=== PATIENT | male | born 1965 | race Caucasian/White ===

== ENCOUNTER 2020-06-23 16:30 | Inpatient (IN) | payer SELFPAY ==
[2020-06-23] MEDS ORDERED: NA CHLORIDE 0.9% 1,000 ML ONE ×3 (17:17→20:21)
--- NOTE | 2020-06-23 17:25 | RAD REPORT ---
EXAM DESCRIPTION: RAD - Chest Single View - 06/23/2020 5:19 pm CLINICAL HISTORY: DYSPNEA Chest pain. COMPARISON: No comparisons FINDINGS: Portable technique limits examination quality. The lungs are grossly clear. The heart is normal in size. No displaced fractures. IMPRESSION: No acute intrathoracic process suspected.
[2020-06-23] MEDS ORDERED: LIDOCAINE 1% MPF 5 ML VIAL ONE (17:40)
[2020-06-23 17:59] LABS: Absolute Lymphocytes (CBC) 1.6 K/uL (0.7-4.9); Basophils % 0.9 % (0-1.3); Hematocrit 43.5 % (39.6-49.0); Lymphocytes % 12.2 % (15.3-44.8); MPV 9.5 fL (7.6-11.3); Protime INR 1.05; RBC Red Blood Cell Count 4.43 M/uL (4.33-5.43)
--- NOTE | 2020-06-23 18:21 | RAD REPORT ---
EXAM DESCRIPTION: US - Lower Extremity Arterial Bilat - 06/23/2020 6:09 pm CLINICAL HISTORY: no palpable pulses bilaterally;Numbness/tingling;Pain Leg pain, claudication COMPARISON: No comparisons TECHNIQUE: Bilateral lower extremity arterial Doppler examination was performed with zheng johnson FINDINGS: Triphasic waveforms are seen throughout both lower extremity arterial systems to the level of the dis anthony SFA bilaterally. The popliteal and distal vessels bilaterally are blunted and monophasic. No occlusion seen. IMPRESSION: Significant flow restricting stenosis is likely present bilaterally at the level of the distal SFAs.
[2020-06-23 18:22] LABS: ALT/SGPT 43 U/L (12-78); Albumin 3.4 g/dL (3.4-5.0); Alkaline Phosphatase 100 U/L (45-117); BUN Blood Urea Nitrogen 54 mg/dL (7-18); Bicarbonate 19 mmol/L (21-32); Bilirubin Direct < 0.1 mg/dL (0-0.2); Bilirubin Total 0.5 mg/dL (0.2-1.0); Glucose Level 126 mg/dL (74-106); NT PRO-BNP 199 pg/mL (<125); Sodium Level 139 mmol/L (136-145); Troponin (Emerg Dept Use Only) < 0.02 ng/mL (0.0-0.045)
[2020-06-23 18:29] LABS: AST/SGOT 121 U/L (15-37); Magnesium 2.8 mg/dL (1.8-2.4); Potassium 3.4 mmol/L (3.5-5.1)
--- NOTE | 2020-06-23 19:44 | P.HP ---
Certification for Inpatient Patient admitted to: Inpatient With expected LOS: >2 Midnights Patient will require the following post-hospital care: None Practitioner: I am a practitioner with admitting privileges, knowledge of patient current condition, hospital course, and medical plan of care. Services: Services provided to patient in accordance with Admission requirements found in Title 42 Section 412.3 of the Code of Federal Regulations <TrescarinPreet - Last Filed: 06/23/20 19:38> Patient History Date of Service: 06/23/20 Reason for admission: ARF/hypotension History of Present Illness: 55-year-old male with history of hypertension presents emergency department for lower extremity pain. Patient was evaluated with arterial ultrasound the lower extremities and found to have monophasic distal to the distal SFA. Patient initially with some mottling of the lower extremities which has improved with fluid resuscitation. Patient was also found to be in acute renal failure. Patient reports that he recently started back on his blood pressure medications including lisinopril, Norvasc, Coreg approximately 2 weeks ago. Patient reportedly been off his medications for significant period time and had just restarted. Patient is hypotensive at this time with a systolic blood pressure around 85-95. ED provider wishes to admit patient to the ICU for further evaluation and management. Case was discussed with nephrology while the patient was in the emergency department. There is some concern for renal artery stenosis. When I saw the patient in the emergency department he was awake, alert, oriented x4. Patient denies any pain at this time. Patient with nonpalpable pulses DP and PT but both extremities are warm to touch. Patient reports pain has improved as blood pressure has improved as well. Patient does have flow distal to the SFA. Will place cardiology consult in place. If this worsens or patient has acute changes he may require transfer for vascular. 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 - Social History Smoking Status: Current every day smoker Alcohol use: Yes CD- Drugs: No Caffeine use: Yes Place of Residence: Home <Preet Valles - Last Filed: 06/23/20 19:38> Date of Service: 06/24/20 <Angus Davis - Last Filed: 06/24/20 14:28> Review of Systems 10-point ROS is otherwise unremarkable Musculoskeletal: Leg Pain (Bilateral lower extremity pain) <Preet Valles - Last Filed: 06/23/20 19:38> Physical Examination - Physical Exam General: Alert, In no apparent distress, Oriented x3 HEENT: Atraumatic, Normocephalic, PERRLA, Mucous membr. moist/pink Neck: Supple Respiratory: Clear to auscultation bilaterally, Normal air movement Cardiovascular: No edema, Regular rate/rhythm, Normal S1 S2, Abnormal pulses (Nonpalpable pulses in DP and PT) Capillary refill: Other (Cap refill greater than 3 seconds bilateral lower extremities) Gastrointestinal: Normal bowel sounds, Hypoactive, No ascites, No tenderness, No masses, No rebound, No guarding Musculoskeletal: No swelling, No contractures, No erythema Integumentary: Cyanosis (Some mild cyanosis and the distal portion of bilateral feet including the toes. Both extremities are warm.) Neurological: Normal gait, Normal speech, Normal tone - Studies Laboratory Data (last 24 hrs) 06/23/20 17:41: PT 12.4, INR 1.05 06/23/20 17:41: WBC 13.2 H, Hgb 14.8, Hct 43.5, Plt Count 302 06/23/20 17:41: Sodium 139, Potassium 3.4 L, BUN 54 H, Creatinine 7.31 H*, Glucose 126 H, Magnesium 2.8 H, Total Bilirubin 0.5, AST 121 H, ALT 43, Alkaline Phosphatase 100 <Preet Valles - Last Filed: 06/23/20 19:38> - Studies Laboratory Data (last 24 hrs) 06/23/20 17:41: PT 12.4, INR 1.05 06/23/20 17:41: WBC 13.2 H, Hgb 14.8, Hct 43.5, Plt Count 302 06/23/20 17:41: Sodium 139, Potassium 3.4 L, BUN 54 H, Creatinine 7.31 H*, Glucose 126 H, Magnesium 2.8 H, Total Bilirubin 0.5, AST 121 H, ALT 43, Alkaline Phosphatase 100 <Angus Davis - Last Filed: 06/24/20 14:28> Assessment and Plan - Plan Assessment Acute renal failure with hypotension Monophasic arterial flow distal to the SFA bilaterally History of hypertension Tobacco abuse Plan Acute renal failure with hypotension: Continue aggressive fluid resuscitation, nephrology has been consulted on this patient. Continue with urine electrolytes, uric acid, CPK levels. Continue with renal ultrasound. Heparin 5000 units subcutaneous twice daily for DVT prophylaxis. Patient be admitted to the ICU due to hypotension. If patient hypotension persists after fluid resuscitation he may require central line and vasopressor therapy. Appreciate further input from nephrology. Monophasic arterial flow distal to the SFA bilaterally: Suspect patient has underlying vasculopathy and this was exacerbated by episode of hypotension secondary to acute renal failure. Will continue to monitor patient's lower extremities closely throughout the evening. Will continue with the warm blankets and fluid resuscitation. If this does not improve or significantly worsens acutely will likely need to eat initiate transfer for vascular service. At this time it has improved since admission. History of hypertension: Hold all blood pressure medications at this time. Will continue to monitor patient's blood pressure closely in the intensive care unit. Tobacco abuse: Counseled on need for tobacco cessation. Will provide patient with nicotine patch. Discharge Plan: Home Plan to discharge in: 72 Hours - Advance Directives Does patient have a Living Will: No Does patient have a Durable POA for Healthcare: No - Code Status/Comfort Care Code Status Assessed: Yes (Patient is full code) Critical Care: No Time Spent Managing Pts Care (In Minutes): 55 <Preet Valles - Last Filed: 06/23/20 19:38> - Problems (Diagnosis) (1) CLEM (acute kidney injury) Current Visit: Yes Status: Acute (2) Rhabdomyolysis Current Visit: Yes Status: Acute (3) Hypotension Current Visit: Yes Status: Acute (4) PAD (peripheral artery disease) Current Visit: Yes Status: Acute Physician Review Additional Text: Patient was seen and examined Agree with the findings Agree with the assessment and plan as documented by the TATO Date of service is 06/23/2020 <Angus Davis - Last Filed: 06/24/20 14:28>
[2020-06-23 20:41] LABS: Urine Blood 2+ (NEG); Urine Glucose NEGATIVE (NEG); Urine Specific Gravity >1.030 (1.005-1.030)
[2020-06-23 20:42] LABS: Urine Protein 2+ (NEG)
[2020-06-23] MEDS ORDERED: ONDANSETRON 4 MG/2 ML VIAL IV PRN (23:39)
[2020-06-23] MEDS ORDERED: ACETAMINOPHEN 500 MG TAB PO PRN (23:39)
[2020-06-23] MEDS ORDERED: HYDROCODONE/APAP 7.5/325 MG TAB PO PRN (23:39)
--- NOTE | 2020-06-23 23:53 | ER ---
Nurse's Notes [facility] Name: Alcides Werner Age: 55 yrs Sex: Male : 1965 Arrival Date: 06/23/2020 Time: 16:36 Bed 18 Private MD: Diagnosis: Acute kidney failure;Hypotension Presentation: 06/23 16:36 Chief complaint: EMS states: called out for rosalia. leg numbness and tingling that has em been going on for about 2 weeks, started after change of BP medications, BP on scene 80s systolic, pt denies dizziness, BGL 123. Coronavirus screen: Client denies travel out of the [place] in the last 14 days. Ebola Screen: Patient negative for fever greater than or equal to 101.5 degrees Fahrenheit, and additional compatible Ebola Virus Disease symptoms Patient denies exposure to infectious person. Patient denies travel to an Ebola-affected area in the 21 days before illness onset. No symptoms or risks identified at this time. Initial Sepsis Screen: Does the patient meet any 2 criteria? No. Patient's initial sepsis screen is negative. Does the patient have a suspected source of infection? No. Patient's initial sepsis screen is negative. Risk Assessment: Do you want to hurt yourself or someone else? Patient reports no desire to harm self or others. Onset of symptoms was June 09, 2020. 16:36 Method Of Arrival: EMS: [facility] em 16:36 Acuity: FELICIA 2 em Historical: - Allergies: 16:40 No Known Allergies; em - PMHx: 16:40 Hypertension; Diabetes - NIDDM; em - Immunization history:: Adult Immunizations not up to date. - Social history:: Smoking status: Patient reports the use of cigarette tobacco products, smokes one pack cigarettes per day. Screenin:36 Abuse screen: Denies threats or abuse. Nutritional screening: No deficits noted. em Tuberculosis screening: No symptoms or risk factors identified. Fall Risk None identified. Assessment: 16:36 General: Appears in no apparent distress. comfortable, Behavior is calm, cooperative, em appropriate for age, Denies fever. Pain: Complains of pain in right leg and left leg. Neuro: Level of Consciousness is awake, alert, obeys commands, Oriented to person, place, time, situation, Appropriate for age. Cardiovascular: Denies shortness of breath, Pulses are absent in right popliteal artery, right posterior tibial artery, right dorsalis pedis artery, left popliteal artery, left posterior tibial artery and left dorsalis pedis artery are palpable in right femoral artery and left femoral artery Chest pain is denied. Respiratory: Airway is patent Respiratory effort is even, unlabored, Respiratory pattern is regular, symmetrical. GI: Abdomen is round non-distended, Patient currently denies nausea, vomiting. Derm: Skin is intact, Skin is pink, warm \T\ dry. Musculoskeletal: Musculoskeletal: Capillary refill is > 3 seconds, is sluggish, in bilateral toes. Range of motion: intact in all extremities, Swelling absent. 18:00 Reassessment: Patient appears in no apparent distress at this time. Patient and/or em family updated on plan of care and expected duration. Pain level reassessed. Patient is alert, oriented x 3, equal unlabored respirations, skin warm/dry/pink. 19:15 Reassessment: Patient and/or family updated on plan of care and expected duration. Pain mt2 level reassessed. Patient is alert, oriented x 3, equal unlabored respirations, skin warm/dry/pink. Patient denies pain at this time. General: Appears in no apparent distress. Behavior is cooperative. 20:00 Reassessment: Patient and/or family updated on plan of care and expected duration. Pain mt2 level reassessed. Patient is alert, oriented x 3, equal unlabored respirations, skin warm/dry/pink. Patient denies pain at this time. Reassessment: PT CONT TO BE HYPOTENSIVE. NS 0.9% BOLUS 500 ML ADMINISTERED. TO BE START CONT. IVF AT 150ML POST BOLUS. General: Appears in no apparent distress. comfortable, Behavior is cooperative. 21:00 Reassessment: Patient and/or family updated on plan of care and expected duration. Pain mt2 level reassessed. Patient is alert, oriented x 3, equal unlabored respirations, skin warm/dry/pink. Patient denies pain at this time. Reassessment: [place] HOSPITALIST IF MAP LESS THAN 60 TO NOTIFIED THEM FOR POSSIBLE FEMORAL IV. General: Appears in no apparent distress. comfortable, Behavior is cooperative. 22:00 Reassessment: Patient and/or family updated on plan of care and expected duration. Pain mt2 level reassessed. Patient is alert, oriented x 3, equal unlabored respirations, skin warm/dry/pink. Patient denies pain at this time. General: Appears in no apparent distress. comfortable, Behavior is cooperative, appropriate for age. Vital Signs: 03:00 BP 94 / 60; Pulse 57; Resp 16; Pulse Ox 97% ; Pain 0/10; mt2 16:36 BP 77 / 42 LA; Pulse 63; Resp 18; Temp 98.5(O); Pulse Ox 99% on R/A; Weight 127.01 kg; em Height 5 ft. 7 in. (170.18 cm); Pain 0/10; 17:00 BP 87 / 56 RA; em 17:57 BP 97 / 70; Pulse 65; Resp 18 S; Pulse Ox 99% on R/A; em 19:30 BP 92 / 68; Pulse 61; Resp 16; Pulse Ox 97% on R/A; Pain 0/10; mt2 20:00 BP 87 / 39; Pulse 57; Resp 16; Pulse Ox 97% ; Pain 0/10; mt2 20:30 BP 91 / 63; Pulse 60; Resp 16; Pulse Ox 97% ; Pain 0/10; mt2 21:00 BP 89 / 62; Pulse 54; Resp 59; Temp 97.9(TE); Pulse Ox 99% ; Pain 0/10; mt2 21:30 BP 93 / 52; Pulse 59; Resp 16; Pulse Ox 99% ; Pain 0/10; mt2 22:00 BP 93 / 57; Pulse 57; Resp 16; Pulse Ox 99% ; Pain 0/10; mt2 22:30 BP 91 / 56; Pulse 58; Resp 16; Pulse Ox 99% ; Pain 0/10; mt2 16:36 Body Mass Index 43.86 (127.01 kg, 170.18 cm) em ED Course: 16:36 Patient arrived in ED. em 16:36 Patient has correct armband on for positive identification. Placed in gown. Bed in low em position. Call light in reach. patient monitor on. Pulse ox on. NIBP on. 16:39 Triage completed. em 16:40 Arm band placed on. em 16:42 Alhaji Vee RN is Primary Nurse. em 16:42 Santhosh Max PA is PHCP. jr8 16:42 Marcial Briceño MD is Attending Physician. jr8 17:00 Inserted saline lock: 20 gauge in left forearm, using aseptic technique. em 17:18 XRAY Chest (1 view) In Process Unspecified. EDMS 18:09 US LE Arterial Bilateral In Process Unspecified. EDMS 19:25 Rubin Davis MD is Hospitalizing Provider. jr8 23:05 No provider procedures requiring assistance completed. Patient admitted, IV remains in mt2 place. Administered Medications: 17:09 Drug: NS 0.9% 1000 ml Route: IV; Rate: 1000 ml; Site: left forearm; em 18:10 Follow up: IV Status: Completed infusion; IV Intake: 1000ml em 18:16 Drug: NS 0.9% 1000 ml Route: IV; Rate: 1 bolus; Site: left forearm; em 23:08 Follow up: IV Status: Completed infusion mt2 20:16 Drug: NS 0.9% 500 ml Route: IV; Rate: bolus; Site: left forearm; lp1 20:28 Follow up: Response: No adverse reaction; IV Status: Completed infusion mt2 21:07 Follow up: Response: No adverse reaction; IV Status: Completed infusion mt2 21:06 Drug: NS 0.9% 1000 ml Route: IV; Rate: 150 ml/hr; Site: left antecubital; mt2 23:06 Follow up: Response: No adverse reaction; IV Status: Infusion continued upon admission mt2 Intake: 18:10 IV: 1000ml; Total: 1000ml. em Outcome: 19:26 Decision to Hospitalize by Provider. jr8 23:05 Admitted to ICU accompanied by nurse, via stretcher. mt2 23:05 Condition: stable 23:05 Instructed on the need for admit. 23:52 Patient left the ED. mt2 Signatures: Dispatcher [employer] Alhaji Forte, RN RN em Che Chaves RN RN lp1 Santhosh Max PA PA jr8 Evelyn Rg RN RN mt2 Corrections: (The following items were deleted from the chart) 17:19 16:36 BP 77 / 42; Pulse 63bpm; Resp 18bpm; Pulse Ox 99% RA; Temp 98.5F Oral; 127.01 kg; em Height 5 ft. 7 in.; BMI: 43.8; Pain 0/10; em
--- NOTE | 2020-06-23 23:53 | EDPHYS ---
Physician Documentation [facility] Name: Alcides Werner Age: 55 yrs Sex: Male : 1965 Arrival Date: 06/23/2020 Time: 16:36 Bed 18 Private MD: ED Physician Marcial Briceño HPI: 06/23 19:26 This 55 yrs old Male presents to ER via EMS with complaints of Leg Pain. jr8 19:26 Onset: The symptoms/episode began/occurred gradually, 1 week(s) ago. Modifying factors: jr8 The symptoms are alleviated by nothing. the symptoms are aggravated by movement. Associated signs and symptoms: Pertinent positives: Dizziness . Severity of symptoms: At their worst the symptoms were moderate, in the emergency department the symptoms are unchanged. The patient has not experienced similar symptoms in the past. The patient has been recently seen by a physician:. Patient stated that he was recently started on Lisinopril and Norvasc for HTN about 2 weeks ago. Within past week or so started to have pain, tingling, and numbness to lower legs. Denies trauma. Now dizzy. Patient in triage with hypotension . Historical: - Allergies: 16:40 No Known Allergies; em - PMHx: 16:40 Hypertension; Diabetes - NIDDM; em - Immunization history:: Adult Immunizations not up to date. - Social history:: Smoking status: Patient reports the use of cigarette tobacco products, smokes one pack cigarettes per day. ROS: 19:26 Eyes: Negative for injury, pain, redness, and discharge, ENT: Negative for injury, jr8 pain, and discharge, Neck: Negative for injury, pain, and swelling, Cardiovascular: Negative for chest pain, palpitations, and edema, Respiratory: Negative for shortness of breath, cough, wheezing, and pleuritic chest pain, Abdomen/GI: Negative for abdominal pain, nausea, vomiting, diarrhea, and constipation, Back: Negative for injury and pain, Skin: Negative for injury, rash, and discoloration. 19:26 MS/extremity: Positive for pain, paresthesias, of the right foot, left foot, right leg and left leg. 19:26 Neuro: Positive for dizziness, numbness, tingling. Exam: 19:26 Eyes: Pupils equal round and reactive to light, extra-ocular motions intact. Lids and jr8 lashes normal. Conjunctiva and sclera are non-icteric and not injected. Cornea within normal limits. Periorbital areas with no swelling, redness, or edema. ENT: Nares patent. No nasal discharge, no septal abnormalities noted. Tympanic membranes are normal and external auditory canals are clear. Oropharynx with no redness, swelling, or masses, exudates, or evidence of obstruction, uvula midline. Mucous membranes moist. Neck: Trachea midline, no thyromegaly or masses palpated, and no cervical lymphadenopathy. Supple, full range of motion without nuchal rigidity, or vertebral point tenderness. No Meningismus. Cardiovascular: Regular rate and rhythm with a normal S1 and S2. No gallops, murmurs, or rubs. Normal PMI, no JVD. Respiratory: Lungs have equal breath sounds bilaterally, clear to auscultation and percussion. No rales, rhonchi or wheezes noted. No increased work of breathing, no retractions or nasal flaring. Abdomen/GI: Soft, non-tender, with normal bowel sounds. No distension or tympany. No guarding or rebound. No evidence of tenderness throughout. Back: No spinal tenderness. No costovertebral tenderness. Full range of motion. Skin: Warm, dry with normal turgor. Normal color with no rashes, no lesions, and no evidence of cellulitis. Neuro: Awake and alert, GCS 15, oriented to person, place, time, and situation. Cranial nerves II-XII grossly intact. Motor strength 5/5 in all extremities. Sensory grossly intact. Cerebellar exam normal. Normal gait. 19:26 Musculoskeletal/extremity: ROM: intact in all extremities, full active range of motion, full passive range of motion, Pulses: noted to be 2+ in the right femoral artery and left femoral artery, noted to be 1+ in the right radial artery and left radial artery, PT and DP impalpable . the right foot and left foot Sensation intact. Tingling of extremity. decreased sensation. Vital Signs: 03:00 BP 94 / 60; Pulse 57; Resp 16; Pulse Ox 97% ; Pain 0/10; mt2 16:36 BP 77 / 42 LA; Pulse 63; Resp 18; Temp 98.5(O); Pulse Ox 99% on R/A; Weight 127.01 kg; em Height 5 ft. 7 in. (170.18 cm); Pain 0/10; 17:00 BP 87 / 56 RA; em 17:57 BP 97 / 70; Pulse 65; Resp 18 S; Pulse Ox 99% on R/A; em 19:30 BP 92 / 68; Pulse 61; Resp 16; Pulse Ox 97% on R/A; Pain 0/10; mt2 20:00 BP 87 / 39; Pulse 57; Resp 16; Pulse Ox 97% ; Pain 0/10; mt2 20:30 BP 91 / 63; Pulse 60; Resp 16; Pulse Ox 97% ; Pain 0/10; mt2 21:00 BP 89 / 62; Pulse 54; Resp 59; Temp 97.9(TE); Pulse Ox 99% ; Pain 0/10; mt2 21:30 BP 93 / 52; Pulse 59; Resp 16; Pulse Ox 99% ; Pain 0/10; mt2 22:00 BP 93 / 57; Pulse 57; Resp 16; Pulse Ox 99% ; Pain 0/10; mt2 22:30 BP 91 / 56; Pulse 58; Resp 16; Pulse Ox 99% ; Pain 0/10; mt2 16:36 Body Mass Index 43.86 (127.01 kg, 170.18 cm) em MDM: 16:43 Patient medically screened. [facility] 19:21 Data reviewed: vital signs, nurses notes, lab test result(s), EKG, radiologic studies, jr8 doppler, plain films. Data interpreted: Pulse oximetry: on room air is 99 %. Interpretation: normal. Counseling: I had a detailed discussion with the patient and/or guardian regarding: the historical points, exam findings, and any diagnostic results supporting the discharge/admit diagnosis, lab results, radiology results, the need for further work-up and treatment in the hospital. ED course: Discussed case with Dr. Huffman. That there is concern for possibility of renal artery stenosis given the acute renal failure with new undiagnosed significant atherosclerosis and recent lisinopril use. Dr. Huffman agrees and will admit and get MRA without contrast of the renal arteries. Will continue to hydrate and control BP. Preet COLLINS was called and admitted patient . 06/23 16:52 Order name: Basic Metabolic Panel; Complete Time: 18:52 [facility] 06/23 16:52 Order name: CBC with Diff; Complete Time: 18:02 jr8 06/23 16:52 Order name: LFT's; Complete Time: 18:52 06/23 16:52 Order name: Magnesium; Complete Time: 18:52 06/23 16:52 Order name: NT PRO-BNP; Complete Time: 18:52 06/23 16:52 Order name: PT-INR; Complete Time: 18:02 06/23 16:52 Order name: Troponin (emerg Dept Use Only); Complete Time: 18:52 06/23 16:52 Order name: XRAY Chest (1 view); Complete Time: 18:00 06/23 16:52 Order name: US LE Arterial Bilateral; Complete Time: 18:52 06/23 18:04 Order name: CREATININE WHOLE BLOOD; Complete Time: 18:08 EDTX 06/23 20:37 Order name: Urine Dipstick--Ancillary (enter results) ar5 06/23 20:42 Order name: Urine Dipstick-Ancillary; Complete Time: 20:59 EDMS 06/23 16:52 Order name: EKG; Complete Time: 16:52 06/23 16:52 Order name: Cardiac monitoring; Complete Time: 17:06 06/23 16:52 Order name: EKG - Nurse/Tech; Complete Time: 17:06/23 16:52 Order name: IV Saline Lock; Complete Time: 17:06/23 16:52 Order name: Labs collected and sent; Complete Time: 17:06/23 16:52 Order name: O2 Per Protocol; Complete Time: 17:06/23 16:52 Order name: O2 Sat Monitoring; Complete Time: 17:06/23 19:28 Order name: CONS Physician Consult EDMS Administered Medications: 17:09 Drug: NS 0.9% 1000 ml Route: IV; Rate: 1000 ml; Site: left forearm; em 18:10 Follow up: IV Status: Completed infusion; IV Intake: 1000ml em 18:16 Drug: NS 0.9% 1000 ml Route: IV; Rate: 1 bolus; Site: left forearm; em 23:08 Follow up: IV Status: Completed infusion mt2 20:16 Drug: NS 0.9% 500 ml Route: IV; Rate: bolus; Site: left forearm; lp1 20:28 Follow up: Response: No adverse reaction; IV Status: Completed infusion mt2 21:07 Follow up: Response: No adverse reaction; IV Status: Completed infusion mt2 21:06 Drug: NS 0.9% 1000 ml Route: IV; Rate: 150 ml/hr; Site: left antecubital; mt2 23:06 Follow up: Response: No adverse reaction; IV Status: Infusion continued upon admission mt2 Disposition: 06/24 08:53 Co-signature as Attending Physician, Marcial Briceño MD I agree with the assessment and kdr plan of care. Disposition: 06/23/20 19:26 Hospitalization ordered by Rubin Davis for Inpatient Admission. Preliminary diagnosis are Acute kidney failure, Hypotension. - Bed requested for Intensive Care Unit. - Status is Inpatient Admission. mt2 - Condition is Fair. - Problem is new. - Symptoms have improved. Signatures: Dispatcher [employer] EDTX Marcial Briceño MD MD kdr Alhaji Vee, RN GAYLE em Che Chaves RN RN lp1 Santhosh Max PA PA jr8 Preet Valles, PAINT STRIPING MACHINE OPERATOR-C PAINT STRIPING MACHINE OPERATOR-Cla1 Evelyn Rg RN RN mt2 Corrections: (The following items were deleted from the chart) 06/23 17:54 16:53 Angio Aorta For Dissection+CT.RAD.BRZ ordered. [facility] EDTX 23:52 19:26 Hospitalization Ordered by Rubin Davis MD for Inpatient Admission. Preliminary mt2 diagnosis is Acute kidney failure; Hypotension. Bed requested for Intensive Care Unit. Status is Inpatient Admission. Condition is Fair. Problem is new. Symptoms have improved. jr8
[2020-06-24] MEDS: HEPARIN 5000 UNIT/ML 1 ML VIAL SQ SCH ×3 (00:01→21:02)
[2020-06-24] MEDS: NA CHLORIDE 0.9% 1,000 ML IV SCH ×2 (00:01→08:09)
[2020-06-24 01:42] VITALS: BMI 43.8
[2020-06-24 05:00] LABS: Urine Protein/Creatinine Ratio 0.23 ratio (<0.15)
[2020-06-24 05:42] LABS: Absolute Lymphocytes (CBC) 2.7 K/uL (0.7-4.9); Basophils % 0.7 % (0-1.3); Hematocrit 37.1 % (39.6-49.0); Lymphocytes % 29.8 % (15.3-44.8); MPV 9.5 fL (7.6-11.3)
[2020-06-24 06:07] LABS: Magnesium 2.3 mg/dL (1.8-2.4); Thyroid Stimulating Hormone 1.31 uIU/mL (0.360-3.740); Uric Acid 15.8 mg/dL (3.5-7.2)
[2020-06-24 06:09] LABS: Potassium 2.9 mmol/L (3.5-5.1)
[2020-06-24] MEDS ORDERED: POTASSIUM CL SA 10 MEQ TAB PO ONE ×2 (06:14→09:00)
[2020-06-24] MEDS ORDERED: POTASSIUM CL 40 MEQ in NA CHLORIDE 0.9% 500 ML IV SCH (08:00)
[2020-06-24] MEDS ORDERED: NA CHLORIDE 0.9% 1,000 ML ONE (08:03)
[2020-06-24] MEDS: NICOTINE 21 MG/PAT TD SCH (08:25)
[2020-06-24] MEDS ORDERED: NICOTINE 21 MG/PAT TD ONE (08:31)
[2020-06-24] MEDS ORDERED: HEPARIN 5000 UNIT/ML 1 ML VIAL ONE ×2 (08:32→21:11)
[2020-06-24] MEDS ORDERED: KCL 20 MEQ/100 mL IVPB 20 MEQ/100 ML BAG IV ONE (08:32)
--- NOTE | 2020-06-24 08:39 | EKG ---
Test Date: 2020-06-23 Test Time: 16:59:15 Billing Department Supervisor: STEVE MEASUREMENT RESULTS: Intervals: Rate: 63 SD: 138 QRSD: 90 QT: 458 QTc: 468 [place]: P: 75 SD: 138 QRS: 68 T: 36 INTERPRETIVE STATEMENTS: Sinus rhythm with premature atrial complexes Nonspecific ST and T wave abnormality Prolonged QT Abnormal ECG No previous ECG available for comparison Electronically Signed On 06-24-20 08:38:16 CDT by Soham Angeles
--- NOTE | 2020-06-24 09:04 | RAD REPORT ---
EXAM DESCRIPTION: US - Renal Ultrasound-Complete - 06/24/2020 7:04 am CLINICAL HISTORY: afr Flank pain, renal failure COMPARISON: No comparisons FINDINGS: Both kidneys are normal in size, shape and echotexture. The right kidney measures 11.9 x 6.1 x 4.7 cm. No hydronephrosis, focal mass or perinephric fluid.Two benign cortical cysts are present on the right, the largest measuring 29 mm. The left kidney measures 11.6 x 5.5 x 5.4 cm. No hydronephrosis, focal mass or perinephric fluid. The urinary bladder is incompletely distended without gross abnormality seen. IMPRESSION: Benign cortical renal cysts involving the right kidney, otherwise negative study.
--- NOTE | 2020-06-24 10:30 | P.PN ---
Subjective Date of Service: 06/24/20 Chief Complaint: ARF/hypotension Subjective: No new changes, Other (Denies any chest pain or shortness of breath No fever or chills) Review of Systems 10-point ROS is otherwise unremarkable Physical Examination - Vital Signs Temperature: 98.5 F Blood Pressure: 105/52 Pulse: 85 Respirations: 20 Pulse Ox (%): 99 - Physical Exam General: Alert, In no apparent distress, Obese HEENT: Atraumatic, Normocephalic Neck: Supple Respiratory: Diminished, Crackles/rales Cardiovascular: Regular rate/rhythm, Normal S1 S2 Capillary refill: <2 Seconds Gastrointestinal: Soft and benign, W/out hepatosplenomegaly Musculoskeletal: No clubbing, Swelling, Other (Decreased pulse volume of lower extremity ) Integumentary: No rashes Neurological: Normal speech, Normal strength at 5/5 x4 extr Lymphatics: No axilla or inguinal lymphadenopathy - Studies Laboratory Data (last 24 hrs) 06/23/20 17:41: PT 12.4, INR 1.05 06/23/20 17:41: WBC 13.2 H, Hgb 14.8, Hct 43.5, Plt Count 302 06/23/20 17:41: Sodium 139, Potassium 3.4 L, BUN 54 H, Creatinine 7.31 H*, Glucose 126 H, Magnesium 2.8 H, Total Bilirubin 0.5, AST 121 H, ALT 43, Alkaline Phosphatase 100 Assessment & Plan - Problems (Diagnosis) (1) CLEM (acute kidney injury) Current Visit: Yes Status: Acute (2) Rhabdomyolysis Current Visit: Yes Status: Acute (3) Hypotension Current Visit: Yes Status: Acute (4) PAD (peripheral artery disease) Current Visit: Yes Status: Acute Physician Review Additional Text: Acute renal failure with hypotension Monophasic arterial flow distal to the SFA bilaterally History of hypertension Tobacco abuse Plan Acute renal failure with hypotension: Continue aggressive fluid resuscitation Appreciate Nephrology consult Continue with urine electrolytes, uric acid, CPK levels. Renal ultrasound findings noted. Peripheral Arterial disease Doppler : Monophasic arterial flow distal to the SFA bilaterally: Will get a cardiology consult for possible peripheral arterial interventions As the patient has elevated renal parameters, possibly need to wait May get an MRA once GFR is less than 40 Hypotension The patient has a history of hypertension will continue IV fluid Will hold antihypertensives for now Monitor closely under telemetry History of hypertension: Hold all blood pressure medications at this time. Will continue to monitor patient's blood pressure closely Tobacco abuse: Counseled on need for tobacco cessation. Will provide patient with nicotine patch. GI/DVT prophylaxis Time Spent Managing Pts Care (In Minutes): 42
[2020-06-24] MEDS: NACHLORIDE 0.45% 1,000 ML with NA BICARB 8.4% 75 MEQ IV SCH ×4 (11:00→21:03)
--- NOTE | 2020-06-24 14:33 | CON ---
Date of Consultation: 06/24/2020 Additional Consulting Physician: Dr. Angus Davis. Reason For Consultation: Elevated BUN and creatinine, hypertension, rhabdomyolysis. History Of Present Illness: This is a pleasant 55-year-old gentleman with significant past medical h istory of hypertension, poorly treated diabetes, not on treatment, osteoarthritis. The patient was i n his regular state of health. According to him, he visited with his primary care 2 weeks ago and fo und to have elevated blood pressure. For that reason, the patient was started on treatment. The pat ient was started on BuSpar, lisinopril and carvedilol. According to him, after 5 days of the treatme nt, the patient started feeling weak, decrease in his urine output and gradually started weaker and w eaker. For that reason, he reported to the hospital. Upon arrival to the hospital, the patient was found to have severe elevation in BUN and creatinine and hypotension. Blood pressure was down to the 70. Doppler for the lower extremity showed decreased flow below the knee, monophasic with good perf usion on the upper part of the lower extremity. The patient was started on aggressive hydration. Th e patient also was severely hypokalemic. Upon arrival, creatinine was 7.3 with uric acid of 15. The patient was started on aggressive hydration. Blood pressure started being stabilized, did not re quire any pressor. According to the patient, the patient has been taking Aleve 1-2 tablets daily for almost a few weeks, stopped it 2 weeks ago. The patient denied any IV contrast. No other changes i n his medication. The patient denied any other joint problem. No photosensitivity. No mouth ulcer. Past Medical History: Include: 1.Diabetes, never been treated. 2.Hypertension, recently started treatment. 3.Osteoarthritis, on Aleve. Family History: Positive for hypertension. No history of kidney disease. Social History: Active alcohol, active smoker. Denies drugs abuse. Past Surgical History: Negative. Allergies: NO KNOWN DRUGS ALLERGIES. Review of Systems: Head and Neck: No red eye. No ear pain. GI: Decreased intake, nausea without any vomiting. : Decreased urine output. No foamy urine. No hematuria. Machine I Coremaker: Not applicable. Respiratory: No shortness of breath. Cardiovascular: No chest pain. No edema. Endocrine: No polydipsia. Skin: No rash. Neuro: Generalized fatigue. Musculoskeletal: Muscle cramps. Physical Examination: Vital Signs: When I saw the patient, blood pressure 105/52, pulse of 85, afebrile. The patient afte r hydration had urine output of 425. Chest: Clear to auscultation. Heart: S1, S2 regular. Abdomen: Soft, nontender. Morbidly obese. Could not appreciate any renal bruit or any organomegaly . Extremities: No edema. Pulse weak on the right dorsal. Neurologic: Alert and oriented. No focal. Vascular: The rest of vascular exam, no carotid bruit. Again, the patient is morbidly obese, could not appreciate any renal bruit. Decreased pulse on the right dorsal. Laboratory Data: Sodium 142, potassium 2.9, bicarb 21, BUN 51, creatinine 4.3, GFR of 14, uric acid of 15.8, calcium 7.3, magnesium 2.3. CK 4100. Triglycerides 328. PTH 258. Cortisol 21. WBC 9.8, H and H 13.2/37.1, platelets 258. Urinalysis; specific gravity above 1.030, PC ratio 0.2 even though the protein in the urine +2. Renal ultrasound; normal size kidney, 11.9/11.6. Doppler of the lower extremity; monophasic below the SF. Assessment And Plan: 1.Acute kidney injury, multifactorial, secondary to prerenal, secondary to low blood pressure, super imposed with MARGARET inhibitor. 2.Superimposed with rhabdomyolysis secondary to poor perfusion, complicated with low blood pressure. No hyperkalemia or acidosis. Responding to current IV hydration. 3.I am going to go ahead and continue IV hydration. Given the presence of rhabdomyolysis and acute kidney injury, we are going to goal to alkaline in urine. For that reason, I am going to change the IV fluid to bicarb drip with goal of urine pH above 6.5. Patient is going to be placed on sodium bic arb 75 mEq with half-normal at 125 per hour. 4.Rhabdomyolysis secondary to poor perfusion, ischemia on the lower extremity. We will continue agg ressive hydration and change the IV fluid as above. 5.Hypokalemia with presence of rhabdomyolysis. We going to be replacing it cautiously especially wi th the presence of renal failure. 6.I going to check for the magnesium. We will check. Hyperthyroidism has been ruled out with marilou l TSH. 7.Secondary hyperparathyroidism, marginal low calcium, but corrected calcium is 8.2 with the presenc e of rhabdomyolysis. I am going to hold on any supplement. 8.Elevation in the uric acid secondary to dehydration. I am not going to start on any allopurinol. 9.Hypertension with the presence of low blood pressure. Hold all blood pressure medication, especia lly MARGARET inhibitor. 10.Diabetes. We will follow up with the primary. 11.Proteinuria with disproportion of the quantification from the goal. I am going to go ahead and s end for serum protein electrophoresis and we will follow up the patient. Thank you, Dr. Davis for allowing us to participate in the care of your patient. CHRISTINA Voice ID: [id number] Report ID: [id number]
[2020-06-25] MEDS: NACHLORIDE 0.45% 1,000 ML with NA BICARB 8.4% 75 MEQ IV SCH ×2 (05:30)
[2020-06-25 07:38] LABS: Absolute Lymphocytes (CBC) 2.1 K/uL (0.7-4.9); Basophils % 0.8 % (0-1.3); Hematocrit 36.2 % (39.6-49.0); Lymphocytes % 27.8 % (15.3-44.8); MPV 9.4 fL (7.6-11.3); RBC Red Blood Cell Count 3.69 M/uL (4.33-5.43)
[2020-06-25 08:19] LABS: Rheumatoid Factor NEG (NEG)
[2020-06-25 08:25] LABS: Albumin 2.8 g/dL (3.4-5.0); Magnesium 1.6 mg/dL (1.8-2.4); Phosphorus 1.9 mg/dL (2.5-4.9); Potassium 3.1 mmol/L (3.5-5.1); Thyroid Stimulating Hormone 2.07 uIU/mL (0.360-3.740); Uric Acid 13.1 mg/dL (3.5-7.2)
[2020-06-25] MEDS ORDERED: NICOTINE 21 MG/PAT TD ONE (08:33)
[2020-06-25] MEDS ORDERED: HEPARIN 5000 UNIT/ML 1 ML VIAL ONE ×2 (08:33→19:45)
[2020-06-25] MEDS: NICOTINE 21 MG/PAT TD SCH (08:55)
[2020-06-25] MEDS: HEPARIN 5000 UNIT/ML 1 ML VIAL SQ SCH ×2 (08:56→20:46)
[2020-06-25] MEDS ORDERED: POTASSIUM CL SA 10 MEQ TAB PO ONE ×2 (11:18→12:03)
[2020-06-25] MEDS: NS KCL 20MEQ 20 MEQ/1,000 ML BAG IV SCH ×2 (12:03→19:37)
[2020-06-25] MEDS ORDERED: NS KCL 20MEQ 1,000 ML IV ONE ×2 (12:13→19:45)
--- NOTE | 2020-06-25 12:39 | P.PN ---
Subjective Date of Service: 06/25/20 Chief Complaint: ARF/hypotension Subjective Pt was admitted with wekaness, found to be hypotensive , Autumn cr peak 7.3 today no new complaints Cr down to 1.3 K 3.1 , will change fluid to NS with KCL monitor CPK Physical exam general: AAOX3, NAD Neck; Supple, No elevated JVD hear: RRR, normal S1,2 no murmur or rub Chest: CTAB, no rlaes or wheezes Abdomen: Soft , Nt Extremities No edema or ulcer AUTUMN due to dehydration + MARGARET improving , cr near 1 renal dose meds F/u SPEP cont IVF Hypokalmeia will replace will change fluid to NS + KCL rhabdomyolyisis possibly due to hypokalemia cot IVF HTN bP borderline now cont to hold BP meds Physical Examination - Vital Signs Temperature: 98.7 F Blood Pressure: 110/52 Pulse: 80 Respirations: 20 Pulse Ox (%): 99 Assessment And Plan Physician Review Additional Text: Patient was seen and examined Agree with the findings Agree with the assessment and plan as documented by the TATO Date of service is 06/23/2020
--- NOTE | 2020-06-25 14:39 | P.PN ---
Subjective Date of Service: 06/25/20 Chief Complaint: ARF/hypotension Subjective: No new changes, Other (Feeling better Denies any chest pain or shortness of breath) Review of Systems 10-point ROS is otherwise unremarkable Physical Examination - Vital Signs Temperature: 98.7 F Blood Pressure: 110/52 Pulse: 80 Respirations: 20 Pulse Ox (%): 99 - Physical Exam General: Alert, In no apparent distress HEENT: Atraumatic, Normocephalic Neck: Supple, 2+ carotid pulse no bruit Respiratory: Clear to auscultation bilaterally, Normal air movement Cardiovascular: Normal pulses, Regular rate/rhythm Capillary refill: <2 Seconds Gastrointestinal: Hypoactive, Soft and benign Musculoskeletal: No clubbing, No swelling Integumentary: No rashes, No breakdown Neurological: Normal speech, Normal strength at 5/5 x4 extr Lymphatics: No axilla or inguinal lymphadenopathy Assessment & Plan - Problems (Diagnosis) (1) CLEM (acute kidney injury) Current Visit: Yes Status: Acute (2) Rhabdomyolysis Current Visit: Yes Status: Acute (3) Hypotension Current Visit: Yes Status: Acute (4) PAD (peripheral artery disease) Current Visit: Yes Status: Acute Physician Review Additional Text: Acute renal failure with hypotension Monophasic arterial flow distal to the SFA bilaterally History of hypertension Tobacco abuse Plan Acute renal failure with hypotension: Continue aggressive fluid resuscitation Appreciate Nephrology consult Continue with urine electrolytes, uric acid, CPK levels. Renal ultrasound findings noted. Renal parameters improving Peripheral Arterial disease Doppler : Monophasic arterial flow distal to the SFA bilaterally: Will get a cardiology consult for possible peripheral arterial interventions As the patient has elevated renal parameters, possibly need to wait MRA once GFR is less than 40 Hypotension The patient has a history of hypertension will continue IV fluid Will hold antihypertensives for now Monitor closely under telemetry History of hypertension: Hold all blood pressure medications at this time. Will continue to monitor patient's blood pressure closely Tobacco abuse: Counseled on need for tobacco cessation. Will provide patient with nicotine patch. Time Spent Managing Pts Care (In Minutes): 43
[2020-06-25] MEDS ORDERED: MAGNESIUM SULFATE 1 gm IVPB 1 GM/100 ML BAG IV ONE ×2 (20:25→20:56)
[2020-06-25] MEDS ORDERED: POTASSIUM 25 MEQ EFFERV TAB PO ONE (20:28)
[2020-06-25] MEDS ORDERED: POTASSIUM 25 MEQ EFFERV TAB ONE (20:55)
[2020-06-26] MEDS: NS KCL 20MEQ 20 MEQ/1,000 ML BAG IV SCH ×2 (04:54→18:01)
[2020-06-26] MEDS ORDERED: NS KCL 20MEQ 1,000 ML IV ONE ×2 (05:02→18:10)
[2020-06-26 07:22] LABS: Absolute Lymphocytes (CBC) 1.5 K/uL (0.7-4.9); Basophils % 0.8 % (0-1.3); Lymphocytes % 22.6 % (15.3-44.8); MPV 9.2 fL (7.6-11.3)
[2020-06-26 07:48] LABS: Albumin 2.6 g/dL (3.4-5.0); Phosphorus 1.3 mg/dL (2.5-4.9); Potassium 3.6 mmol/L (3.5-5.1)
[2020-06-26 07:50] LABS: Magnesium 1.2 mg/dL (1.8-2.4)
[2020-06-26] MEDS: NICOTINE 21 MG/PAT TD SCH (08:59)
[2020-06-26] MEDS: HEPARIN 5000 UNIT/ML 1 ML VIAL SQ SCH ×2 (08:59→21:00)
[2020-06-26] MEDS ORDERED: HEPARIN 5000 UNIT/ML 1 ML VIAL ONE ×2 (09:04→20:35)
[2020-06-26] MEDS ORDERED: NICOTINE 21 MG/PAT TD ONE (09:04)
[2020-06-26] MEDS ORDERED: PANTOPRAZOLE 40 MG INJ ONE (09:33)
[2020-06-26] MEDS ORDERED: POTASSIUM CL SA 10 MEQ TAB PO ONE (09:39)
[2020-06-26] MEDS ORDERED: POTASSIUM PHOS 30 MM in NA CHLORIDE 0.9% 500 ML IV ONE (10:00)
[2020-06-26] MEDS ORDERED: Magnesium Sulfate 2gm IVPB 2 G/50 ML BAG IV ONE ×4 (10:00→20:53)
--- NOTE | 2020-06-26 10:34 | P.PN ---
Subjective Date of Service: 06/26/20 Chief Complaint: ARF/hypotension Subjective: No new changes Review of Systems 10-point ROS is otherwise unremarkable Physical Examination - Vital Signs Temperature: 98.6 F Blood Pressure: 118/63 Pulse: 65 Respirations: 20 Pulse Ox (%): 100 - Physical Exam General: Alert, In no apparent distress, Obese HEENT: Atraumatic, Normocephalic Neck: Supple Respiratory: Clear to auscultation bilaterally, Normal air movement Cardiovascular: Regular rate/rhythm, Normal S1 S2 Gastrointestinal: Soft and benign, W/out hepatosplenomegaly Musculoskeletal: No clubbing, No swelling Integumentary: No rashes Neurological: Normal speech, Normal strength at 5/5 x4 extr Lymphatics: No axilla or inguinal lymphadenopathy Assessment & Plan - Problems (Diagnosis) (1) CLEM (acute kidney injury) Current Visit: Yes Status: Acute (2) Rhabdomyolysis Current Visit: Yes Status: Acute (3) Hypotension Current Visit: Yes Status: Acute (4) PAD (peripheral artery disease) Current Visit: Yes Status: Acute Physician Review Additional Text: Acute renal failure with hypotension Monophasic arterial flow distal to the SFA bilaterally History of hypertension Tobacco abuse Plan Acute renal failure with hypotension: Continue aggressive fluid resuscitation Appreciate Nephrology consult Continue with urine electrolytes, uric acid, CPK levels. Renal ultrasound findings noted. Renal parameters normalised Peripheral Arterial disease Doppler : Monophasic arterial flow distal to the SFA bilaterally: Will get a cardiology consult for possible peripheral arterial interventions As the patient has elevated renal parameters, possibly need to wait MRA today Hypotension resolved The patient has a history of hypertension will continue IV fluid Will hold antihypertensives for now Monitor closely under telemetry History of hypertension: Hold all blood pressure medications at this time. Will continue to monitor patient's blood pressure closely Tobacco abuse: Counseled on need for tobacco cessation. Will provide patient with nicotine patch. Time Spent Managing Pts Care (In Minutes): 45
[2020-06-26] MEDS ORDERED: MAGNESIUM SULFATE 1 gm IVPB 1 GM/100 ML BAG IV ONE (12:18)
[2020-06-26] MEDS ORDERED: POTASSIUM PHOS IN 0.9 % NACL 15 MMOL/250 ML BAG IV ONE (12:18)
--- NOTE | 2020-06-26 15:07 | P.PN ---
Subjective Date of Service: 06/26/20 Chief Complaint: ARF/hypotension Subjective Pt was admitted with wekaness, found to be hypotensive , Autumn cr peak 7.3 today have mild le numbness k wnl , low Mg and Phos electolytes replaced will start on PO Mg oxide if repeated phos and Mg > 2.0, then pt can be discharged today from nephrology point of view Physical exam general: AAOX3, NAD Neck; Supple, No elevated JVD hear: RRR, normal S1,2 no murmur or rub Chest: CTAB, no rlaes or wheezes Abdomen: Soft , Nt Extremities No edema or ulcer AUTUMN due to dehydration + MARGARET resolved renal dose meds F/u SPEP cont IVF Hypokalmeia corrected rhabdomyolyisis possibly due to hypokalemia cot IVF hypophophatemia and hypomagnesemia likely due to poor oral intake will replace HTN bP borderline now cont to hold BP meds Physical Examination - Vital Signs Temperature: 98.6 F Blood Pressure: 118/63 Pulse: 65 Respirations: 20 Pulse Ox (%): 100
[2020-06-26] MEDS ORDERED: D5.45NS W/KCL 20MEQ 0 ML IV ONE (18:05)
[2020-06-26 19:07] LABS: Magnesium 1.3 mg/dL (1.8-2.4); Phosphorus 2.2 mg/dL (2.5-4.9)
[2020-06-26] MEDS ORDERED: MAGNESIUM OXIDE 400 MG TAB ONE (20:36)
[2020-06-26] MEDS: MAGNESIUM OXIDE 400 MG TAB PO SCH (20:44)
--- NOTE | 2020-06-26 22:31 | CON ---
Date of Consultation: 06/24/2020 Reason For Consultation: Acute renal failure, elevated CPK. History Of Present Illness: Mr. Curiel is a 55-year-old male with a history of hypertension only . He takes typically Coreg, Zestril, and BuSpar at home. He came in with acute renal failure. Crecarin tinine was 7.31, had a potassium of 2.9. Last creatinine is 4.34. His CPK was 4162. No cardiac sym ptoms reported. Denied PND, orthopnea, pedal edema, palpitations, or syncope. Denied chest pain. H ad some nausea, but no vomiting or diaphoresis. Past Medical History: As stated above. Allergies: NONE. Review of Systems: Negative. Social History: Unremarkable. Family History: Noncontributory. Medications: As listed earlier. Physical Examination: Vital Signs: Stable. He is afebrile, in sinus rhythm. HEENT: Negative. Neck: Supple. No bruit. Chest: Clear. Cardiac: Revealed a regular rhythm and rate with an S4 gallops. Abdomen: Benign. Extremities: Revealed no clubbing, cyanosis, or edema. Diagnostic Data: As stated earlier. Impression And Plan: 1.Acute renal failure. 2.Hypertension. 3.Hypokalemia. 4.Elevated CPK secondary to renal failure. Echocardiogram may be reasonable on Mr. Curiel. No other cardiac workup is indicated at this poi nt. We will see what the echocardiogram shows. He definitely needs to be hydrated and Nephrology co nsultation is pending. We need to hold his Zestril, continue his Coreg. I will be available for kristal davis if the need arises. NB/CONCHITAL Voice ID: [id number] Report ID: [id number]
[2020-06-27] MEDS: NS KCL 20MEQ 20 MEQ/1,000 ML BAG IV SCH ×3 (00:54→12:00)
[2020-06-27] MEDS ORDERED: NS KCL 20MEQ 1,000 ML IV ONE ×2 (01:03→08:12)
[2020-06-27 06:36] LABS: Albumin 2.5 g/dL (3.4-5.0); BUN Blood Urea Nitrogen 8 mg/dL (7-18); Bicarbonate 27 mmol/L (21-32); Glucose Level 93 mg/dL (74-106); Magnesium 1.6 mg/dL (1.8-2.4); Phosphorus 1.8 mg/dL (2.5-4.9); Potassium 3.6 mmol/L (3.5-5.1); Sodium Level 143 mmol/L (136-145)
[2020-06-27] MEDS ORDERED: POTASSIUM CL SA 10 MEQ TAB PO ONE ×2 (08:12→09:00)
[2020-06-27] MEDS ORDERED: MAGNESIUM OXIDE 400 MG TAB ONE ×2 (08:12→21:37)
[2020-06-27] MEDS ORDERED: HEPARIN 5000 UNIT/ML 1 ML VIAL ONE ×2 (08:12→21:37)
[2020-06-27] MEDS ORDERED: MAGNESIUM SULFATE 1 gm IVPB 1 GM/100 ML BAG IV ONE ×2 (08:12→09:00)
[2020-06-27] MEDS: MAGNESIUM OXIDE 400 MG TAB PO SCH ×2 (09:19→21:42)
[2020-06-27] MEDS: NICOTINE 21 MG/PAT TD SCH (09:19)
[2020-06-27] MEDS: HEPARIN 5000 UNIT/ML 1 ML VIAL SQ SCH ×2 (09:20→21:42)
--- NOTE | 2020-06-27 09:41 | P.PN ---
Subjective Date of Service: 06/27/20 Chief Complaint: ARF/hypotension Subjective: No new changes, Other (Feeling better denies any chest pain or shortness of breath Swelling improved) Review of Systems 10-point ROS is otherwise unremarkable Physical Examination - Vital Signs Temperature: 97.6 F Blood Pressure: 138/86 Pulse: 71 Respirations: 16 Pulse Ox (%): 96 - Physical Exam General: Alert, In no apparent distress, Obese HEENT: Atraumatic, Normocephalic Neck: Supple Respiratory: Clear to auscultation bilaterally Cardiovascular: Regular rate/rhythm, Normal S1 S2 Capillary refill: <2 Seconds Gastrointestinal: Soft and benign, W/out hepatosplenomegaly Musculoskeletal: No clubbing, No swelling Integumentary: No rashes Neurological: Normal speech, Normal strength at 5/5 x4 extr Lymphatics: No axilla or inguinal lymphadenopathy Assessment & Plan - Problems (Diagnosis) (1) CLEM (acute kidney injury) Current Visit: Yes Status: Acute (2) Rhabdomyolysis Current Visit: Yes Status: Acute (3) Hypotension Current Visit: Yes Status: Acute (4) PAD (peripheral artery disease) Current Visit: Yes Status: Acute Physician Review Additional Text: Acute renal failure with hypotension Monophasic arterial flow distal to the SFA bilaterally History of hypertension Tobacco abuse Plan Acute renal failure with hypotension: Responded well to aggressive fluid resuscitation Appreciate Nephrology consult Renal ultrasound findings noted. Renal parameters normalised Peripheral Arterial disease Doppler : Monophasic arterial flow distal to the SFA bilaterally: Appreciate cardiology consult for possible peripheral arterial interventions As the patient had elevated renal parameters, possibly need to wait Will get an MRA today Hypotension resolved The patient has a history of hypertension will continue IV fluid Will hold antihypertensives for now Monitor closely under telemetry History of hypertension: Hold all blood pressure medications at this time. Will continue to monitor patient's blood pressure closely Tobacco abuse: Counseled on need for tobacco cessation. Will provide patient with nicotine patch. Disposition : Awaiting MRA Discuss with Dr. Hodges May benefit from angiogram for peripheral arterial disease Time Spent Managing Pts Care (In Minutes): 42
--- NOTE | 2020-06-27 12:23 | P.PN ---
Subjective Date of Service: 06/30/20 Chief Complaint: ARF/hypotension Subjective Pt was admitted with wekaness, found to be hypotensive , Autumn cr peak 7.3 today have mild le numbness plan for LE MRA tomorrow TSH Wnl , will check b12 level Physical exam general: AAOX3, NAD Neck; Supple, No elevated JVD hear: RRR, normal S1,2 no murmur or rub Chest: CTAB, no rlaes or wheezes Abdomen: Soft , Nt Extremities No edema or ulcer AUTUMN due to dehydration + MARGARET resolved renal dose meds F/u SPEP cont IVF Hypokalmeia corrected will start daily KCL supplementation rhabdomyolyisis possibly due to hypokalemia cot IVF hypophophatemia and hypomagnesemia likely due to poor oral intake will replace HTN bP borderline now cont to hold BP meds Physical Examination - Vital Signs Temperature: 97.6 F Blood Pressure: 138/86 Pulse: 71 Respirations: 16 Pulse Ox (%): 96
[2020-06-27] MEDS ORDERED: POTASSIUM PHOS 30 MEQ in NA CHLORIDE 0.9% 250 ML IV ONE (13:00)
[2020-06-28 07:02] LABS: Albumin 2.7 g/dL (3.4-5.0); BUN Blood Urea Nitrogen 8 mg/dL (7-18); Bicarbonate 28 mmol/L (21-32); CKMB Creatine Kinase MB 1.8 ng/mL (0.3-3.6); Creatine Phosphokinase 398 U/L (39-308); Glucose Level 91 mg/dL (74-106); Potassium 4.1 mmol/L (3.5-5.1); Sodium Level 141 mmol/L (136-145)
[2020-06-28 07:07] LABS: Magnesium 1.3 mg/dL (1.8-2.4)
[2020-06-28] MEDS ORDERED: MAGNESIUM SULFATE 1 gm IVPB 1 GM/100 ML BAG IV ONE ×2 (07:23→18:00)
[2020-06-28] MEDS: HEPARIN 5000 UNIT/ML 1 ML VIAL SQ SCH ×2 (09:00→21:10)
[2020-06-28] MEDS: NICOTINE 21 MG/PAT TD SCH (14:48)
[2020-06-28] MEDS: POTASSIUM 25 MEQ EFFERV TAB PO SCH (14:49)
[2020-06-28] MEDS: MAGNESIUM OXIDE 400 MG TAB PO SCH ×2 (14:50→21:10)
--- NOTE | 2020-06-28 15:58 | RAD REPORT ---
EXAM DESCRIPTION: MRI - MRA Runoff Bilateral - 06/28/2020 2:40 pm CLINICAL HISTORY: Peripheral vascular disease. Leg pain and numbness TECHNIQUE: Magnetic resonance angiogram abdominal aorta, iliac and leg arteries performed. 40 cc Mul tiHance administered intravenously 3D MIPS reconstruction performed FINDINGS: Mild plaque within the abdominal aorta. The celiac, SMA and VIVIEN are patent Renal arteries normal caliber Signal voids are present within the distal superficial femoral and popliteal arteries bilaterally. The peroneal arteries bilaterally have diminished blood flow. The right and left posterior and anterior tibial arteries are patent. Diminished blood flow to the fe et IMPRESSION: Signal void within the distal superficial femoral and popliteal arteries. Presumably the se are occluded. If the patient has had stents placed in these areas the artifact would result in a s imilar appearance. This should be correlated clinically
--- NOTE | 2020-06-28 18:54 | P.PN ---
Subjective Date of Service: 06/28/20 Chief Complaint: ARF/hypotension overall feels better, continues with b/l feet tingling/pain. denies SOB, chest pain, abdominal pain Physical Examination - Vital Signs Temperature: 97.6 F Blood Pressure: 163/74 Pulse: 67 Respirations: 24 Pulse Ox (%): 98 - Physical Exam General: In no apparent distress HEENT: EOMI, Sclerae nonicteric Neck: Supple Respiratory: Clear to auscultation bilaterally, Normal air movement Cardiovascular: Regular rate/rhythm, Normal S1 S2 Gastrointestinal: Normal bowel sounds, Soft and benign, Non-distended Neurological: Normal speech, Normal affect, Abnormal sensation (decreased on b/l feet) Assessment & Plan Physician Review Additional Text: CLEM Rhabdomyolysis Hypotension, resolved PAD Acute renal failure with hypotension Monophasic arterial flow distal to the SFA bilaterally History of hypertension Tobacco abuse Plan Acute renal failure with hypotension: Responded well to aggressive fluid resuscitation Appreciate Nephrology consult Renal parameters normalized Peripheral Arterial disease Doppler : Monophasic arterial flow distal to the SFA bilaterally: Appreciate cardiology consult for possible peripheral arterial interventions to get MRA today Hypotension resolved, holding home antihypertensives The patient has a history of hypertension Monitor closely under telemetry History of hypertension: Hold all blood pressure medications at this time. Will continue to monitor patient's blood pressure closely Tobacco abuse: Counseled on need for tobacco cessation. Will provide patient with nicotine patch. Disposition : Awaiting MRA, Discuss with Dr. Hodges May benefit from angiogram for peripheral arterial disease anticipate dc home tomorrow Time Spent Managing Pts Care (In Minutes): 40
--- NOTE | 2020-06-29 02:38 | PN ---
Date of Progress Note: 06/28/2020 Chief Complaint: Abnormal renal function test, elevated BUN and creatinine, hypertension, and rhabdo myolysis. Subjective: The patient is a 55-year-old man with past medical history significant for hypertension, poorly diet-controlled diabetes, not on treatment with medication. The patient is noncompliant with diet. The patient is admitted to the hospital because of generalized weakness. He was found to hav e severe hypokalemia and the patient was found to have volume depletion. [facility], he was found to have severe elevation of BUN, creatinine, and hypotension. According to the patie nt, he was taking Aleve and this was likely culprit of acute kidney injury. The patient denied contr ast. Review of Systems: Denies fever or chills. Physical Examination: Lungs: Diminished breath sounds at bases. Heart: S1 and S2. Abdomen: Soft and benign. Extremities: Slight edema present. Impression And Plan: 1.Acute kidney injury, in recovery phase. The patient has history of rhabdomyolysis. CK level was 3441. Continue to monitor electrolytes. The patient has severe hypokalemia. Potassium level has im proved. There is no evidence of metabolic acidosis. 2.Hypomagnesemia, replaced today, and level was reevaluated. The patient will continue magnesium dillon pplement. EB/MODL Voice ID: [id number] Report ID: [id number]
[2020-06-29 06:57] LABS: Albumin 2.8 g/dL (3.4-5.0); BUN Blood Urea Nitrogen 7 mg/dL (7-18); Bicarbonate 27 mmol/L (21-32); Glucose Level 81 mg/dL (74-106); Magnesium 1.6 mg/dL (1.8-2.4); Phosphorus 2.1 mg/dL (2.5-4.9); Sodium Level 140 mmol/L (136-145)
[2020-06-29] MEDS: NICOTINE 21 MG/PAT TD SCH (08:48)
[2020-06-29] MEDS: POTASSIUM 25 MEQ EFFERV TAB PO SCH (08:49)
[2020-06-29] MEDS: MAGNESIUM OXIDE 400 MG TAB PO SCH (08:49)
[2020-06-29] MEDS: HEPARIN 5000 UNIT/ML 1 ML VIAL SQ SCH (08:49)
[2020-06-29] MEDS ORDERED: MAGNESIUM SULFATE 1 gm IVPB 1 GM/100 ML BAG IV ONE (09:00)
[2020-06-29 09:12] LABS: HIV AG/AB 4TH GEN Non-reactive (Non-reactive)
[2020-06-29 09:26] VITALS: O2SAT 95
--- NOTE | 2020-06-29 14:13 | PN ---
Date of Progress Note: 06/29/2020 Subjective: The patient was admitted to the hospital with acute kidney injury multifactorial seconda ry to rhabdo, poor perfusion, ATN. The patient's after hydration kidney function has been normalized . Physical Examination: Vital Signs: When I saw the patient, blood pressure 134/69, pulse of 62, afebrile. The patient had good urine output. Chest: Clear to auscultation. Heart: S1, S2 regular. Abdomen: Soft, nontender. Extremity: No edema. Neurologic: Alert, oriented x3. Nonfocal. Laboratory Data: WBC 6.7, H and H 12.1/34. Sodium 140, potassium 4, bicarb 27, BUN 7, creatinine 0. 7, calcium of 8, phosphorus 2.1, magnesium 1.6. Current Medications: The patient on its include; 1.Tylenol. 2.Magnesium oxide. 3.KCl. Assessment And Plan: 1.Acute kidney injury secondary to prerenal, dehydration, and questionable of renal artery stenosis, improved, recovered completely. Blood pressure has been stable, controlled. The patient is going t o need workup of renal artery stenosis if the blood pressure gets uncontrolled or over volume current ly. We will continue to monitor. 2.Hypertension, controlled, optimal. Continue current treatment. 3.Rhabdomyolysis secondary to poor perfusion, recovered, resolved. 4.Hypomagnesemia. We will supplement. 5.Peripheral arterial disease as by primary. FELICE/TARA Voice ID: [id number] Report ID: [id number]
[2020-06-29 17:28] LABS: Hepatitis C Virus RNA (PCR)log <1.18 log IU/mL
--- NOTE | 2020-06-29 21:08 | P.DS ---
Admission Date: 06/23/20 Discharge Date: 06/30/20 Disposition: ROUTINE DISCHARGE Discharge Condition: GOOD Reason for Admission: ARF/hypotension Consultations: Renal (Prasanna); Cardiology (Karthik) Procedures: US - Lower extremity doppler (06/23) FINDINGS: Triphasic waveforms are seen throughout both lower extremity arterial systems to the level of the distal SFA bilaterally. The popliteal and distal vessels bilaterally are blunted and monophasic. No occlusion seen. IMPRESSION: Significant flow restricting stenosis is likely present bilaterally at the level of the distal SFAs. Renal US (06/24) The right kidney measures 11.9 x 6.1 x 4.7 cm. No hydronephrosis, focal mass or perinephric fluid.Two benign cortical cysts are present on the right, the l argest measuring 29 mm. The left kidney measures 11.6 x 5.5 x 5.4 cm. No hydronephrosis, focal mass or perinephric fluid. The urinary bladder is incompletely distended without gross abnormality seen. IMPRESSION: Benign cortical renal cysts involving the right kidney, otherwise negative study. MRI - MRA Runoff Bilateral - 06/28/2020 2:40 pm FINDINGS: Mild plaque within the abdominal aorta. The celiac, SMA and VIVIEN are patent Renal arteries normal caliber Signal voids are present within the distal superficial femoral and popliteal arteries bilaterally. The peroneal arteries bilaterally have diminished blood flow. The right and left posterior and anterior tibial arteries are patent. Diminished blood flow to the feet IMPRESSION: Signal void within the distal superficial femoral and popliteal arteries. Presumably these are occluded. If the patient has had stents placed in these areas the artifact would result in a similar appearance. This should be correlated clinically Brief History of Present Illness: 55-year-old male with history of hypertension presented to ED for lower extremity pain. Patient was evaluated with arterial ultrasound the lower extremities and found to have monophasic distal to the distal SFA. Patient initially with some mottling of the lower extremities which has improved with fluid resuscitation. Patient was also found to be in acute renal failure. Patient reports that he recently started back on his blood pressure medications including lisinopril, Norvasc, Coreg approximately 2 weeks ago. Patient reportedly been off his medications for significant period time and had just restarted. Patient is hypotensive at this time with a systolic blood pressure around 85-95. He was admitted for further workup. Vital Signs/Physical Exam: Temp Pulse Resp BP Pulse Ox 98.1 F 75 18 162/75 H 98 06/29/20 15:30 06/29/20 15:30 06/29/20 15:30 06/29/20 15:30 06/29/20 15:30 Laboratory Data at Discharge: WBC 6.7 K/uL (4.3-10.9) 06/26/20 07:10 Hgb 12.1 g/dL (13.6-17.9) L 06/26/20 07:10 Hct 34.0 % (39.6-49.0) L 06/26/20 07:10 Plt Count 225 K/uL (152-406) 06/26/20 07:10 PT 12.4 SECONDS (9.5-12.5) 06/23/20 17:41 INR 1.05 06/23/20 17:41 Sodium 140 mmol/L (136-145) 06/29/20 05:50 Potassium 4.0 mmol/L (3.5-5.1) 06/29/20 05:50 BUN 7 mg/dL (7-18) 06/29/20 05:50 Creatinine 0.78 mg/dL (0.55-1.3) 06/29/20 05:50 Glucose 81 mg/dL (74-106) 06/29/20 05:50 Uric Acid 13.1 mg/dL (3.5-7.2) H D 06/25/20 07:11 Phosphorus 2.1 mg/dL (2.5-4.9) L 06/29/20 05:50 Magnesium 1.6 mg/dL (1.8-2.4) L 06/29/20 05:50 Total Bilirubin 0.5 mg/dL (0.2-1.0) 06/23/20 17:41 AST 121 U/L (15-37) H 06/23/20 17:41 ALT 43 U/L (12-78) 06/23/20 17:41 Alkaline Phosphatase 100 U/L (45-117) 06/23/20 17:41 Troponin I < 0.02 ng/mL (0.0-0.045) 06/24/20 16:22 Triglycerides 328 mg/dL (<150) H 06/24/20 04:59 Cholesterol 147 mg/dL (<200) 06/24/20 04:59 HDL Cholesterol 23 mg/dL (40-60) L 06/24/20 04:59 Cholesterol/HDL Ratio 6.39 06/24/20 04:59 Home Medications: Buspirone HCl [Buspar] 10 mg PO TID 06/24/20 Carvedilol [Coreg] 12.5 mg PO BID 06/24/20 Lisinopril [Zestril] 40 mg PO DAILY 06/24/20 Aspirin [Aspirin EC 81 MG] 81 mg PO DAILY 30 Days #30 tablet. 06/29/20 Atorvastatin Calcium 40 mg PO BEDTIME 30 Days #30 tablet 06/29/20 Magnesium Oxide [Mag 0X*] 400 mg PO DAILY #30 tab 06/29/20 Nicotine [Nicoderm*] 21 mg TD DAILY 14 Days #14 patch.td24 06/29/20 New Medications: Aspirin [Aspirin EC 81 MG] 81 mg PO DAILY 30 Days #30 tablet. Atorvastatin Calcium 40 mg PO BEDTIME 30 Days #30 tablet Magnesium Oxide [Mag 0X*] 400 mg PO DAILY #30 tab Nicotine [Nicoderm*] 21 mg TD DAILY 14 Days #14 patch.td24 Patient Discharge Instructions: follow up with PCP within 1 week of discharge. Follow up with Vascular Medicine/Surgery regarding peripheral artery disease. New medications: Atorvastatin 40mg tablet - take one at bedtime. Aspirin 81mg tablet - take one every day. Nicotine patch - place one every 24hrs, remove after 24hrs. Magnesium 400mg - take one tablet daily Diet: AHA Activity: Ad delaney
[2020-06-30 01:51] LABS: Vitamin D 1,25-Dihydroxy Total 39 pg/mL (18-72); Vitamin D,1,25-OH2, D2 <8 pg/mL
[2020-06-30 18:41] VITALS: BP 138/86; TEMP 97.6
[2020-06-30 18:47] LABS: HBsAG Nonreactive (Nonreactive)
[2020-06-30 23:38] LABS: Albumin, (SPE) 2.9 g/dL (3.8-4.8); Alpha-1-Globulins 0.3 g/dL (0.2-0.3); Alpha-2-Globulins 0.8 g/dL (0.5-0.9); INTERPRETATION REPORT
== END 2020-06-29 16:20 | disposition home or self-care (01) | DRG 683 ==
LOC: ER 16:30 → ERHOLD 19:39 → 2ND 06-28 06:38
PROVIDERS: ADMIT Family Medicine; ATTEND Hospitalist
DX: N17.9 Acute kidney failure, unspecified (principal); M62.82 Rhabdomyolysis; Z68.41 Body mass index [BMI] 40.0-44.9, adult; I73.9 Peripheral vascular disease, unspecified; I10 Essential (primary) hypertension; F17.210 Nicotine dependence, cigarettes, uncomplicated; E66.9 Obesity, unspecified; E87.6 Hypokalemia; N25.81 Secondary hyperparathyroidism of renal origin; E86.0 Dehydration; E86.9 Volume depletion, unspecified; R80.9 Proteinuria, unspecified; E83.39 Other disorders of phosphorus metabolism; E83.42 Hypomagnesemia; Z91.11 Patient's noncompliance with dietary regimen; Z60.2 Problems related to living alone
CPT/HCPCS: 36415; 71045; 76770; 80048; 80061; 80069; 80076; 81003; 82533; 82550; 82553; 82565; 82570; 82607; 82652; 83520; 83735; 83880; 83970; 84100; 84132; 84156; 84165; 84166; 84300; 84439; 84443; 84484; 84550; 85025; 85610; 86021; 86038; 86160; 86225; 86317; 86430; 86704; 86706; 87340; 87389; 87522; 93005; 93925; 96360; 96361; 99285; A9577; C8912; C8918; C9113; J1644; J3475; J3480; J7030; J7040; J7050; U0003

== ENCOUNTER 2020-09-10 01:17 | Inpatient (IN) | payer SELFPAY ==
[2020-09-10] MEDS ORDERED: MORPHINE 4 MG/ML SYR ONE ×2 (01:42→03:56)
[2020-09-10] MEDS ORDERED: ONDANSETRON 4 MG/2 ML VIAL ONE ×2 (01:42→03:56)
[2020-09-10] MEDS ORDERED: NA CHLORIDE 0.9% 500 ML ONE (01:43)
[2020-09-10] MEDS ORDERED: NA CHLORIDE 0.9% 1,000 ML ONE ×2 (01:43→03:20)
[2020-09-10 01:59] LABS: Absolute Lymphocytes (CBC) 1.6 K/uL (0.7-4.9); Basophils % 0.3 % (0-1.3); Hematocrit 48.9 % (39.6-49.0); Lymphocytes % 8.7 % (15.3-44.8); MPV 8.3 fL (7.6-11.3)
[2020-09-10 02:03] LABS: Protime INR 1.16
[2020-09-10 02:31] LABS: ALT/SGPT 37 U/L (12-78); AST/SGOT 28 U/L (15-37); Albumin 3.6 g/dL (3.4-5.0); Alkaline Phosphatase 120 U/L (45-117); BUN Blood Urea Nitrogen 18 mg/dL (7-18); Bicarbonate 26 mmol/L (21-32); Bilirubin Direct 0.8 mg/dL (0-0.2); Bilirubin Total 1.6 mg/dL (0.2-1.0); Glucose Level 139 mg/dL (74-106); Lipase 131 U/L (73-393); NT PRO-BNP 158 pg/mL (<125); Potassium 3.5 mmol/L (3.5-5.1); Protein, Total 9.7 g/dL (6.4-8.2); Sodium Level 136 mmol/L (136-145); Troponin (Emerg Dept Use Only) < 0.02 ng/mL (0.0-0.045)
[2020-09-10] MEDS ORDERED: Levofloxacin500mg IV 500 MG/100 ML BAG IV ONE (02:35)
[2020-09-10] MEDS ORDERED: METRONIDAZOLE 500mg IVPB 500 MG/100 ML BAG IV ONE (02:35)
[2020-09-10] MEDS ORDERED: ACETYLCYST 6,000 MG/30 ML VIAL ONE (03:03)
[2020-09-10 03:23] LABS: Magnesium 2.3 mg/dL (1.8-2.4)
--- NOTE | 2020-09-10 04:25 | ER ---
Nurse's Notes [facility] Name: Alcides Werner Age: 55 yrs Sex: Male : 1965 Arrival Date: 09/10/2020 Time: 01:18 Bed 7 Private MD: Diagnosis: Abdominal tenderness;Cholecystitis;Elevated white blood cell count;Acute kidney failure-on chronic Presentation: 09/10 01:18 Chief complaint: EMS states: Pt reported lower abdominal pain that started about two ea hours ago. Pt reports he has not had a bowel movement for four days. Coronavirus screen: At this time, the client does not indicate any symptoms associated with coronavirus-19. Ebola Screen: No symptoms or risks identified at this time. Initial Sepsis Screen: Does the patient meet any 2 criteria? No. Patient's initial sepsis screen is negative. Does the patient have a suspected source of infection? No. Patient's initial sepsis screen is negative. Risk Assessment: Do you want to hurt yourself or someone else? Patient reports no desire to harm self or others. Onset of symptoms was September 10, 2020. 01:18 Method Of Arrival: EMS: [facility] ea 01:18 Acuity: FELICIA 3 ea Triage Assessment: :22 General: Appears uncomfortable, Behavior is appropriate for age. Pain: Complains of ea pain in right lower quadrant and left lower quadrant. Neuro: Level of Consciousness is awake, alert, obeys commands, Oriented to person, place, time. Respiratory: Airway is patent Respiratory effort is even, unlabored, Respiratory pattern is regular, symmetrical. GI: Abdomen is round Reports lower abdominal pain. Historical: - Allergies: : No Known Allergies; ea - PMHx: :22 Diabetes - NIDDM; Hypertension; ea - Immunization history:: Adult Immunizations up to date. - Social history:: Smoking status: Patient reports the use of cigarette tobacco products, smokes one pack cigarettes per day. - Family history:: not pertinent. Screenin:21 Abuse screen: Denies threats or abuse. Nutritional screening: No deficits noted. ea Tuberculosis screening: No symptoms or risk factors identified. Fall Risk IV access (20 points). Assessment: 01:23 Reassessment: see triage assessment. ea 02:30 Reassessment: Patient and/or family updated on plan of care and expected duration. Pain ea level reassessed. Patient is alert, oriented x 3, equal unlabored respirations, skin warm/dry/pink. 02:30 GI: Bowel sounds present X 4 quads. Abdomen is tender to palpation. mg2 03:11 Reassessment: Patient and/or family updated on plan of care and expected duration. Pain ea level reassessed. Patient is alert, oriented x 3, equal unlabored respirations, skin warm/dry/pink. Returned from CT. 03:52 Reassessment: patient complained of abdominal pain again. provider informed and ordered mg2 to give pain medicine. 04:41 Reassessment: ERP notified that pt complaining of onset of CP, v/o received sg to repeat EKG at this time, repeat EKG performed by Tom showed to MARIANA, primary nurse at bedside. 05:45 Reassessment: called the assistant professor of music to come and draw for Blood culture. mg2 06:04 Reassessment: patient has an assigned room already to the floor. to be shifted after mg2 shift change. Vital Signs: 01:18 BP 141 / 98; Pulse 106; Resp 20; Temp 98.3; Pulse Ox 98% ; Weight 127.01 kg; Height 5 ea ft. 7 in. (170.18 cm); 02:34 BP 106 / 60; Pulse 93; Resp 19; Pulse Ox 95% ; ea 04:29 BP 99 / 46; Pulse 96; Resp 18; Pulse Ox 92% ; ea 04:47 BP 131 / 82; Pulse 110; Resp 19; Pulse Ox 100% ; ea 05:49 BP 123 / 82; Pulse 99; Resp 18; Pulse Ox 100% on R/A; ea 01:18 Body Mass Index 43.85 (127.01 kg, 170.18 cm) ED Course: 01:18 Patient arrived in ED. ea 01:18 Peter Jacques MD is Attending Physician. conrado 01:21 Triage completed. ea 01:21 Patient has correct armband on for positive identification. Bed in low position. Call ea light in reach. Side rails up X2. threat monitoring analyst on. Pulse ox on. NIBP on. 01:22 Patient placed in an exam room, on a stretcher, on school bus monitor, on pulse oximetry. ea 01:27 Marco Antonio Wilkins, GAYLE is Primary Nurse. mg2 01:27 Primary Nurse role handed off by Marco Antonio Wilkins, GAYLE ea 01:27 Abby Blunt, GAYLE is Primary Nurse. ea 01:29 No provider procedures requiring assistance completed. EKG done, by ED staff, reviewed mg2 by Peter Jacques MD. Inserted saline lock: 20 gauge in right forearm, using aseptic technique. Blood collected. GAYLE Amaya. 02:29 Notified ED physician of a critical lab result(s). Lactate of 2.4. sg 03:09 Chest Single View In Process Unspecified. EDMS 03:17 Abdomen In Process Unspecified. EDMS 04:24 Ally Montoya MD is Hospitalizing Provider. conrado 05:48 Patient admitted, IV remains in place. ea 06:06 covid swab sent to lab. mg2 Administered Medications: 01:31 Drug: morphine 2 mg Route: IVP; Site: right forearm; mg2 01:31 Drug: Zofran (Ondansetron) 4 mg Route: IVP; Site: right forearm; mg2 02:18 Follow up: Response: No adverse reaction ea 01:32 Drug: NS 0.9% 500 ml Route: IV; Rate: bolus; Site: right forearm; mg2 02:18 Follow up: Response: No adverse reaction; IV Status: Completed infusion; IV Intake: ea 500ml 01:32 Drug: Pepcid 20 mg Route: IVP; Site: right forearm; mg2 02:18 Follow up: Response: No adverse reaction ea 01:57 Drug: NS 0.9% 1000 ml Route: IV; Rate: 125 ml/hr; Site: right antecubital; mg2 04:47 Follow up: Response: No adverse reaction; IV Status: Infusion continued upon admission ea 02:00 Drug: morphine 2 mg Route: IVP; Site: right antecubital; mg2 02:18 Follow up: Response: No adverse reaction; Pain is decreased ea 02:29 Drug: Flagyl 500 mg Volume: 100 ml; Route: IVPB; Rate: 200 ml/hr; Infused Over: 30 ea mins; Site: right antecubital; 03:15 Follow up: Response: No adverse reaction; IV Status: Completed infusion ea 03:10 Drug: NS 0.9% 1000 ml Route: IV; Rate: 1 bolus; Site: right antecubital; ea 04:27 Follow up: Response: No adverse reaction; IV Status: Completed infusion; IV Intake: ea 1000ml 03:11 Drug: Mucomyst - Acetylcysteine 600 mg Route: PO; ea 04:46 Follow up: Response: No adverse reaction ea 03:51 Drug: levofloxacin 500 mg Volume: 100 ml; Route: IVPB; Infused Over: 60 mins; Site: mg2 right antecubital; 04:40 Follow up: Response: No adverse reaction; IV Status: Completed infusion; IV Intake: ea 100ml 03:51 Drug: morphine 4 mg Route: IVP; Site: right antecubital; mg2 04:26 Follow up: Response: No adverse reaction; Pain is decreased ea 03:51 Drug: Zofran (Ondansetron) 4 mg Route: IVP; Site: right antecubital; mg2 04:27 Follow up: Response: No adverse reaction ea 04:45 Drug: Zosyn 3.375 grams Route: IVPB; Infused Over: 60 mins; Site: right antecubital; ea Intake: 02:18 IV: 500ml; Total: 500ml. ea 04:27 IV: 1000ml; Total: 1500ml. ea 04:40 IV: 100ml; Total: 1600ml. ea Outcome: 04:25 Decision to Hospitalize by Provider. [facility] 05:48 Condition: stable ea 05:48 Instructed on the need for admit, Demonstrated understanding of instructions. 07:00 Admitted to Med/surg mg2 08:14 Patient left the ED. Addendum: 09/13/2020 17:43 Addendum: COVID-19 Result: Negative result given to RN to notify pt. Notified pt of i w negative COVID 19 swab results. Pt advised that even with a negative test result they should remain in isolation until symptom free for 3 days without medication. Pt also advised to return to the ED for worsening symptoms. Signatures: Dispatcher [employer] EDMS Jasmeet Calero RN RN sg Anderson, Corey, MD MD cha Williams, Irene, RN RN iw Smirch, Shelby, RN RN ss Antunez, Elena, RN RN ea Gardose, Michele, RN RN mg2 Corrections: (The following items were deleted from the chart) 09/10 02:42 02:34 BP 106 / 60; Pulse 19bpm; Resp 93bpm; Pulse Ox 95%; ea ea
--- NOTE | 2020-09-10 04:26 | EDPHYS ---
Physician Documentation [facility] Name: Alcides Werner Age: 55 yrs Sex: Male : 1965 Arrival Date: 09/10/2020 Time: 01:18 Bed 7 Private MD: NAUN Physician Peter Jacques HPI: 09/10 01:28 This 55 yrs old Male presents to ER via EMS with complaints of Abd Pain > 50 conrado y/o. 01:28 The patient presents with abdominal pain in the lower abdomen, abdominal distention in conrado the upper abdomen, in the lower abdomen. Onset: The symptoms/episode began/occurred 2 day(s) ago. The symptoms do not radiate. Associated signs and symptoms: none. Modifying factors: The symptoms are alleviated by nothing, the symptoms are aggravated by. Historical: - Allergies: : No Known Allergies; ea - PMHx: : Diabetes - NIDDM; Hypertension; ea - Immunization history:: Adult Immunizations up to date. - Social history:: Smoking status: Patient reports the use of cigarette tobacco products, smokes one pack cigarettes per day. - Family history:: not pertinent. ROS: 01:29 Constitutional: Negative for fever, chills, and weight loss, Eyes: Negative for injury, conrado pain, redness, and discharge, ENT: Negative for injury, pain, and discharge, Neck: Negative for injury, pain, and swelling, Cardiovascular: Negative for chest pain, palpitations, and edema, Respiratory: Negative for shortness of breath, cough, wheezing, and pleuritic chest pain, Back: Negative for injury and pain, : Negative for injury, bleeding, discharge, and swelling, MS/Extremity: Negative for injury and deformity, Skin: Negative for injury, rash, and discoloration, Neuro: Negative for headache, weakness, numbness, tingling, and seizure, Psych: Negative for depression, anxiety, suicide ideation, homicidal ideation, and hallucinations, Allergy/Immunology: Negative for hives, rash, and allergies, Endocrine: Negative for neck swelling, polydipsia, polyuria, polyphagia, and marked weight changes, Hematologic/Lymphatic: Negative for swollen nodes, abnormal bleeding, and unusual bruising. 01:29 Abdomen/GI: Positive for abdominal pain, abdominal distension, of the right upper quadrant, left upper quadrant, right lower quadrant and left lower quadrant. Exam: 01:29 Constitutional: This is a well developed, well nourished patient who is awake, alert, conrado and in no acute distress. Head/Face: Normocephalic, atraumatic. Eyes: Pupils equal round and reactive to light, extra-ocular motions intact. Lids and lashes normal. Conjunctiva and sclera are non-icteric and not injected. Cornea within normal limits. Periorbital areas with no swelling, redness, or edema. ENT: Nares patent. No nasal discharge, no septal abnormalities noted. Tympanic membranes are normal and external auditory canals are clear. Oropharynx with no redness, swelling, or masses, exudates, or evidence of obstruction, uvula midline. Mucous membranes moist. Neck: Trachea midline, no thyromegaly or masses palpated, and no cervical lymphadenopathy. Supple, full range of motion without nuchal rigidity, or vertebral point tenderness. No Meningismus. Chest/axilla: Normal chest wall appearance and motion. Nontender with no deformity. No lesions are appreciated. Cardiovascular: Regular rate and rhythm with a normal S1 and S2. No gallops, murmurs, or rubs. Normal PMI, no JVD. No pulse deficits. Respiratory: Lungs have equal breath sounds bilaterally, clear to auscultation and percussion. No rales, rhonchi or wheezes noted. No increased work of breathing, no retractions or nasal flaring. Back: No spinal tenderness. No costovertebral tenderness. Full range of motion. Male : Normal genitalia with no discharge or lesions. Skin: Warm, dry with normal turgor. Normal color with no rashes, no lesions, and no evidence of cellulitis. MS/ Extremity: Pulses equal, no cyanosis. Neurovascular intact. Full, normal range of motion. Neuro: Awake and alert, GCS 15, oriented to person, place, time, and situation. Cranial nerves II-XII grossly intact. Motor strength 5/5 in all extremities. Sensory grossly intact. Cerebellar exam normal. Normal gait. Psych: Awake, alert, with orientation to person, place and time. Behavior, mood, and affect are within normal limits. 01:29 Abdomen/GI: Inspection: distension, Bowel sounds: active, Palpation: mild abdominal tenderness, moderate abdominal tenderness, in the right upper quadrant, left upper quadrant and left lower quadrant, Liver: no appreciated palpable abnormalities, Hernia: not appreciated. 03:00 ECG was reviewed by the Attending Physician. [facility] 04:43 ECG was reviewed by the Attending Physician. [facility] Vital Signs: 01:18 BP 141 / 98; Pulse 106; Resp 20; Temp 98.3; Pulse Ox 98% ; Weight 127.01 kg; Height 5 ea ft. 7 in. (170.18 cm); 02:34 BP 106 / 60; Pulse 93; Resp 19; Pulse Ox 95% ; ea 04:29 BP 99 / 46; Pulse 96; Resp 18; Pulse Ox 92% ; ea 04:47 BP 131 / 82; Pulse 110; Resp 19; Pulse Ox 100% ; ea 05:49 BP 123 / 82; Pulse 99; Resp 18; Pulse Ox 100% on R/A; ea 01:18 Body Mass Index 43.85 (127.01 kg, 170.18 cm) ea MDM: 01:18 Patient medically screened. [facility] 01:31 Differential diagnosis: AAA, bowel obstruction, cholecystitis, Cholelithiasis, [facility] diverticulitis, gastritis, gastroesophageal reflux disease, sympomatic leaking abdominal aortic aneurysm, non-specific abd pain, pancreatitis, Peptic Ulcer Disease, Perf. Duodenal Ulcer, Perf. Gastric Ulcer, Peritonitis, Prostatitis, Pyelonephritis. Data reviewed: vital signs, nurses notes, EMS record, lab test result(s), EKG, radiologic studies, CT scan, plain films. Data interpreted: mercerizer: rate is 106 beats/min, rhythm is regular, Pulse oximetry: on room air is 98 %. Test interpretation: by ED physician or midlevel provider: ECG, plain radiologic studies. Counseling: I had a detailed discussion with the patient and/or guardian regarding: the historical points, exam findings, and any diagnostic results supporting the discharge/admit diagnosis, the presence of at least one elevated blood pressure reading (>120/80) during this emergency department visit, lab results, radiology results, the need for further work-up and treatment in the hospital. 09/10 01:25 Order name: Urine Culture [facility] 09/10 01:54 Order name: Basic Metabolic Panel; Complete Time: 04:22 EDMS 09/10 01:54 Order name: Liver (Hepatic) Function; Complete Time: 04:22 EDNE 09/10 01:54 Order name: Troponin (Emerg Dept Use Only); Complete Time: 04:22 EDNE 09/10 01:54 Order name: NT PRO-BNP; Complete Time: 04:22 EDNE 09/10 01:54 Order name: Magnesium; Complete Time: 04:22 [facility] 09/10 01:54 Order name: Lipase; Complete Time: 04:22 EDNE 09/10 01:54 Order name: Lactate; Complete Time: 02:37 EDNE 09/10 01:54 Order name: CBC with Automated Diff; Complete Time: 02:18 EDNE 09/10 01:54 Order name: Protime (+INR); Complete Time: 02:18 EDNE 09/10 02:36 Order name: Abdomen [facility] 09/10 02:55 Order name: Chest Single View [facility] 09/10 05:25 Order name: US Abdomen Limited [facility] 09/10 05:47 Order name: COVID-19 [facility] 09/10 05:52 Order name: Blood Culture Adult (2) tt3 09/10 06:22 Order name: Lactate Sepsis 2 HR Follow-up [facility] 09/10 01:25 Order name: EKG; Complete Time: 03:29 [facility] 09/10 01:25 Order name: Cardiac monitoring; Complete Time: 01:27 [facility] 09/10 01:25 Order name: EKG - Nurse/Tech; Complete Time: 01:27 [facility] 09/10 01:25 Order name: IV Saline Lock; Complete Time: 01:27 [facility] 09/10 01:25 Order name: Labs collected and sent; Complete Time: 01:27 [facility] 09/10 01:25 Order name: O2 Per Protocol; Complete Time: 01:27 [facility] 09/10 01:25 Order name: O2 Sat Monitoring; Complete Time: 01:28 [facility] 09/10 04:41 Order name: EKG; Complete Time: 04:41 sg 09/10 05:27 Order name: CONS Physician Consult EDNE EC:00 Rate is 104 beats/min. Rhythm is regular. QRS [place] is Normal. MD interval is normal. conrado QRS interval is normal. QT interval is normal. No Q waves. T waves are Normal. ST Segment is depressed in leads II, III, aVF, V4, V5, V6. Clinical impression: Abnormal EKG without significant change and Sinus tachycardia. Interpreted by me. Reviewed by me. 04:43 Rate is 108 beats/min. Rhythm is regular. QRS [place] is Normal. MD interval is normal. conrado QRS interval is normal. QT interval is normal. No Q waves. T waves are Normal. ST Segment is depressed in leads II, III, aVF, V4, V5, V6. Clinical impression: NSR w/ Non-specific ST/T Changes and Sinus tachycardia. Interpreted by me. Reviewed by me. Administered Medications: 01:31 Drug: morphine 2 mg Route: IVP; Site: right forearm; mg2 01:31 Drug: Zofran (Ondansetron) 4 mg Route: IVP; Site: right forearm; mg2 02:18 Follow up: Response: No adverse reaction ea 01:32 Drug: NS 0.9% 500 ml Route: IV; Rate: bolus; Site: right forearm; mg2 02:18 Follow up: Response: No adverse reaction; IV Status: Completed infusion; IV Intake: ea 500ml 01:32 Drug: Pepcid 20 mg Route: IVP; Site: right forearm; mg2 02:18 Follow up: Response: No adverse reaction ea 01:57 Drug: NS 0.9% 1000 ml Route: IV; Rate: 125 ml/hr; Site: right antecubital; mg2 04:47 Follow up: Response: No adverse reaction; IV Status: Infusion continued upon admission ea 02:00 Drug: morphine 2 mg Route: IVP; Site: right antecubital; mg2 02:18 Follow up: Response: No adverse reaction; Pain is decreased ea 02:29 Drug: Flagyl 500 mg Volume: 100 ml; Route: IVPB; Rate: 200 ml/hr; Infused Over: 30 ea mins; Site: right antecubital; 03:15 Follow up: Response: No adverse reaction; IV Status: Completed infusion ea 03:10 Drug: NS 0.9% 1000 ml Route: IV; Rate: 1 bolus; Site: right antecubital; ea 04:27 Follow up: Response: No adverse reaction; IV Status: Completed infusion; IV Intake: ea 1000ml 03:11 Drug: Mucomyst - Acetylcysteine 600 mg Route: PO; ea 04:46 Follow up: Response: No adverse reaction ea 03:51 Drug: levofloxacin 500 mg Volume: 100 ml; Route: IVPB; Infused Over: 60 mins; Site: mg2 right antecubital; 04:40 Follow up: Response: No adverse reaction; IV Status: Completed infusion; IV Intake: ea 100ml 03:51 Drug: morphine 4 mg Route: IVP; Site: right antecubital; mg2 04:26 Follow up: Response: No adverse reaction; Pain is decreased ea 03:51 Drug: Zofran (Ondansetron) 4 mg Route: IVP; Site: right antecubital; mg2 04:27 Follow up: Response: No adverse reaction ea 04:45 Drug: Zosyn 3.375 grams Route: IVPB; Infused Over: 60 mins; Site: right antecubital; ea Disposition: 09/10/20 04:25 Hospitalization ordered by Ally Montoya for Inpatient Admission. Preliminary diagnosis are Abdominal tenderness, Cholecystitis, Elevated white blood cell count, Acute kidney failure - on chronic. - Bed requested for Telemetry/MedSurg (Inpatient). - Status is Inpatient Admission. ss - Condition is Fair. - Problem is new. - Symptoms have improved. Signatures: Dispatcher [employer] EDNE Anjana Guzmán RN RN mw Anderson, Corey, MD MD cha Smirch, Shelby, RN RN ss Antunez, Elena, RN RN ea Gardose, Michele, RN RN mg2 Corrections: (The following items were deleted from the chart) 02:21 02:20 CT-ABD ordered. EDNE EDMS 02:36 02:21 Abdomen ordered. EDNE EDMS 03:31 03:29 Chest Single View+RAD.RAD.BRZ ordered. EDNE EDMS 03:50 03:29 CBC+H.LAB.BRZ ordered. EDNE EDMS 03:50 03:29 PROTIME (+INR)+COAG.LAB.BRZ ordered. EDNE EDMS 03:51 03:29 BASIC METABOLIC PANEL+C.LAB.BRZ ordered. EDMS EDMS 03:51 03:29 HEPATIC FUNCTION+C.LAB.BRZ ordered. EDMS EDMS 03:51 03:29 MAGNESIUM+C.LAB.BRZ ordered. EDNE EDMS 03:51 03:29 PROBNP+C.LAB.BRZ ordered. EDNE EDMS 03:51 03:29 TROPONIN (EMERG DEPT USE ONLY)+C.LAB.BRZ ordered. EDNE EDMS 03:51 03:29 LIPASE+C.LAB.BRZ ordered. EDNE EDMS 03:51 03:29 LACTATE+C.LAB.BRZ ordered. EDMS EDMS 04:33 04:25 Hospitalization Ordered by Ally Montoya MD for Inpatient Admission. Preliminary mw diagnosis is Abdominal tenderness; Cholecystitis; Elevated white blood cell count; Acute kidney failure - on chronic. Bed requested for Telemetry/MedSurg (Inpatient). Status is Inpatient Admission. Condition is Fair. Problem is new. Symptoms have improved. conrado 05:38 03:29 Abdomen Pelvis W Con+CT.RAD.BRZ ordered. [facility] 05:47 04:33 09/10/2020 04:25 Hospitalization Ordered by Ally Montoya MD for Inpatient mw Admission. Preliminary diagnosis is Abdominal tenderness; Cholecystitis; Elevated white blood cell count; Acute kidney failure - on chronic. Bed requested for [facility] ER HOLD. Status is Inpatient Admission. Condition is Fair. Problem is new. Symptoms have improved. mw 08:14 05:47 09/10/2020 04:25 Hospitalization Ordered by Ally Montoya MD for Inpatient ss Admission. Preliminary diagnosis is Abdominal tenderness; Cholecystitis; Elevated white blood cell count; Acute kidney failure - on chronic. Bed requested for Telemetry/MedSurg (Inpatient). Status is Inpatient Admission. Condition is Fair. Problem is new. Symptoms have improved. mw
[2020-09-10] MEDS ORDERED: PIPER/TAZO/NS 3.375gm 3.375 GM/100 ML BAG ONE (04:34)
--- NOTE | 2020-09-10 05:49 | P.HP ---
Certification for Inpatient Patient admitted to: Inpatient With expected LOS: >2 Midnights Patient will require the following post-hospital care: None Practitioner: I am a practitioner with admitting privileges, knowledge of patient current condition, hospital course, and medical plan of care. Services: Services provided to patient in accordance with Admission requirements found in Title 42 Section 412.3 of the Code of Federal Regulations Patient History Date of Service: 09/10/20 Primary Care Provider: OOT Reason for admission: Acute Cholecystitis History of Present Illness: This is a 55-year-old male patient with history of [id number] diabetes mellitus and hypertension that came to the emergency room today for mid abdominal pain that was unrelenting at home. Began 2 days ago. Patient was worked up in the emergency room for abdominal pain and found to have an elevated white cell count and lactate but afebrile. Patient had a CT scan completed showing acute cholecystitis with cholelithiasis. Patient had mild elevation in total bili Thornton at 1.6. Last bilirubin was normal back in June. General dillon rgery and gastroenterology were both consulted. Patient will be admitted to the hospital for acute cholecystitis Allergies No Known Allergies Allergy (Verified 06/23/20 23:39) Home medications list reviewed: Yes Home Medications: Buspirone HCl [Buspar] 10 mg PO TID 06/24/20 Carvedilol [Coreg] 12.5 mg PO BID 06/24/20 Lisinopril [Zestril] 40 mg PO DAILY 06/24/20 Aspirin [Aspirin EC 81 MG] 81 mg PO DAILY 30 Days #30 tablet. 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 - Family History Family History: Reviewed- Non-Contributory - Social History Smoking Status: Current every day smoker Counseled patient to stop smoking for: less than 10 minutes Smoking therapy provided: Yes Patient receptive to therapy: No Alcohol use: Yes CD- Drugs: No Caffeine use: Yes Place of Residence: Home Review of Systems General: Unremarkable Eyes: Unremarkable ENT: Unremarkable Respiratory: Unremarkable Cardiovascular: Unremarkable Gastrointestinal: Nausea, Abdominal Pain Genitourinary: Unremarkable Musculoskeletal: Unremarkable Integumentary: Unremarkable Neurological: Unremarkable Lymphatics: Unremarkable Physical Examination - Vital Signs Temperature: 98.3 F Blood Pressure: 141/98 Pulse: 106 Respirations: 20 Pulse Ox (%): 95 (3 L nasal cannula) - Physical Exam General: Alert, Oriented x3, Cooperative, Disheveled HEENT: PERRLA, Other (Mucous membranes dry), EOMI Neck: Supple, 2+ carotid pulse no bruit, JVD not distended, No Thyromegaly Respiratory: Clear to auscultation bilaterally, Normal air movement Cardiovascular: No edema, Normal pulses, Normal S1 S2, No gallops, No rubs, No murmurs, Irregular heart rate/rhythm (Sinus tachycardia) Capillary refill: <2 Seconds Gastrointestinal: Normal bowel sounds, Soft and benign, Non-distended, No rebound, No guarding, Tenderness (Right mid and right upper quadrant) Musculoskeletal: No clubbing, No swelling, No contractures, No erythema, No tenderness, No warmth Integumentary: No rashes, No breakdown, No significant lesion, No tenderness/swelling, No erythema, No warmth, No cyanosis Neurological: Normal speech, Normal strength at 5/5 x4 extr, Normal tone, Sensation intact, Cranial nerves 3-12 intact, Normal affect Lymphatics: No axilla or inguinal lymphadenopathy - Studies Laboratory Data (last 24 hrs) 09/10/20 01:35: PT 13.7 H, INR 1.16 09/10/20 01:35: WBC 18.4 H, Hgb 17.0, Hct 48.9, Plt Count 391 09/10/20 01:35: Sodium 136, Potassium 3.5, BUN 18, Creatinine 1.46 H, Glucose 139 H, Magnesium 2.3 D, Total Bilirubin 1.6 H, AST 28, ALT 37, Alkaline Phosphatase 120 H, Lipase 131 09/10/20 01:25: PT Cancelled, INR Cancelled 09/10/20 01:25: WBC Cancelled, Hgb Cancelled, Hct Cancelled, Plt Count Cancelled 09/10/20 01:25: Sodium Cancelled, Potassium Cancelled, BUN Cancelled, Creatinine Cancelled, Glucose Cancelled, Magnesium Cancelled, Total Bilirubin Cancelled, AST Cancelled, ALT Cancelled, Alkaline Phosphatase Cancelled, Lipase Cancelled Assessment and Plan - Problems (Diagnosis) (1) Acute cholecystitis Current Visit: Yes Status: Acute Plan: Patient with acute cholecystitis and cholelithiasis present. Patient has elevated white cell count and lactate. Patient will be given fluids in the inpatient setting along with continue antibiotics. Patient will be on Zosyn q.8 hr. Lactate will be redrawn and will follow sepsis protocol as patient also was tachycardic and meets criteria for sepsis. (2) Cholelithiasis Current Visit: Yes Status: Acute Plan: Patient has cholelithiasis present on CT scan. Ultrasound and MRCP have also been added to rule out choledocholithiasis. GI has been consulted also. Qualifiers: Cholelithiasis location: gallbladder Cholecystitis presence: with cholecystitis Cholecystitis acuity: acute Biliary obstruction: without biliary obstruction Qualified Code(s): K80.00 - Calculus of gallbladder with acute cholecystitis without obstruction (3) Hypertension Current Visit: Yes Status: Chronic Qualifiers: Hypertension type: essential hypertension Qualified Code(s): I10 - Essential (primary) hypertension (4) Non-insulin dependent type 2 diabetes mellitus Current Visit: Yes Status: Chronic (5) Sepsis Current Visit: Yes Status: Acute Plan: Patient has elevated white cell count, tachycardia, elevated lactate with a source of infection which is acute cholecystitis. Patient will be treated for sepsis protocol. Patient given fluids in the emergency room but was not ini tially hypotensive and or in septic shock. Patient was treated with antibiotics as well broad-spectrum. Patient was given Levaquin, Flagyl, Zosyn initially. Patient will continue on Zosyn q.8 hr. Will reassess lactate. Qualifiers: Sepsis type: sepsis due to unspecified organism Sepsis acute organ dysfunction status: without acute organ dysfunction Qualified Code(s): A41.9 - Sepsis, unspecified organism Discharge Plan: Home Plan to discharge in: Greater than 2 days - Advance Directives Does patient have a Living Will: No Does patient have a Durable POA for Healthcare: No - Code Status/Comfort Care Code Status Assessed: Yes Code Status: Full Code Critical Care: No Time Spent Managing Pts Care (In Minutes): 60
--- NOTE | 2020-09-10 05:57 | P.INFCA ---
Sepsis Focused Assessment - Focused Assessment Complete? Sepsis Focused Assessment Completed?: Yes - Sepsis Screen Result Severe Sepsis: Positive - Evaluation Current stage of sepsis: Severe sepsis - Vital Signs Reviewed: Yes Temperature: 98.3 F Heart rate: 106 Blood Pressure: 141/98 Respiratory Rate: 20 O2 Sat by Pulse Oximetry: 95 (3 L nasal cannula) - Examination Date exam was performed: 09/10/20 Time exam was performed: 06:00 Heart: S1, S2 (Normal), Tachycardia Lungs: Clear bilaterally Peripheral pulses: 2+ Slightly diminished Peripheral pulse location: Radial Capillary refill: <2 Seconds Skin examination: Normal turgor
[2020-09-10] MEDS ORDERED: ACETAMINOPHEN 500 MG TAB PO PRN (07:46)
--- NOTE | 2020-09-10 08:53 | RAD REPORT ---
EXAM DESCRIPTION: RAD - Chest Single View - 09/10/2020 3:10 am CLINICAL HISTORY: ABDOMINAL DISTENTION Chest pain. COMPARISON: Chest Single View dated 06/23/2020 FINDINGS: Portable technique limits examination quality. The lungs are underinflated resulting in vascular crowding. The heart is upper limit of normal in siz e. No displaced fractures.
[2020-09-10 08:55] VITALS: BMI 43.8
--- NOTE | 2020-09-10 09:00 | RAD REPORT ---
EXAM DESCRIPTION: US - Abdomen Exam Limited - 09/10/2020 6:49 am CLINICAL HISTORY: ABD PAIN COMPARISON: Renal Ultrasound-Complete dated 06/24/2020; Abdomen Pelvis W Contrast dated 09/10/2020 FINDINGS: The gallbladder demonstrates shadowing gallstone. Mild pericholecystic fluid is seen. Gall bladder wall is upper limit of normal measuring 3 mm. The common bile duct is normal measuring 4 mm. The liver demonstrates no findings of intrahepatic biliary dilatation. IMPRESSION: Acute cholecystitis is suspected.
--- NOTE | 2020-09-10 10:01 | RAD REPORT ---
EXAM DESCRIPTION: CT ABDOMEN PELVIS WITH IV CONTRAST CLINICAL HISTORY: Pain, distention TECHNIQUE: Contiguous axial images obtained through the abdomen and pelvis following the uneventful administration of IV contrast. Coronal and sagittal reformatted images were provided. This exam was performed according to our departmental dose-optimization program, which includes autom ated exposure control, adjustment of the mA and/or kV according to patient size and/or use of iterati ve reconstruction technique. COMPARISON: None available for comparison. FINDINGS: Lung bases: Bibasilar subsegmental atelectasis/pleural parenchymal scar. The heart is mild ly enlarged. Coronary artery calcification. Liver: The liver is enlarged. Gallbladder and biliary system: Gallstones within a distended and thickened gallbladder. Moderate allison rounding inflammation. Pancreas: Mild pancreatic parenchymal atrophy and fatty replacement. Spleen: Unremarkable Adrenals: Bilateral nodular adrenal thickening. Kidneys: Normal renal cortical enhancement. Right renal cysts measuring 3.2 cm at the lateral upper t o 0.5 cm at the anterior lower pole. No calculi. No hydronephrosis. Bowel: Mild thickening of the proximal duodenum. Colonic diverticula without adjacent inflammatory ch maribel. No obstruction. Appendix: Normal caliber appendix. No findings to suggest acute appendicitis. Urinary bladder: Unremarkable Reproductive: Unremarkable as visualized Lymph nodes: Top normal juan carlos hepatic and portacaval lymph nodes. Peritoneum: Small amount of free fluid within the right abdomen and lower pelvis. No free air. Vessels: Moderate atherosclerotic disease. No abdominal aortic aneurysm. Abdominal wall: Small fat-containing umbilical and bilateral inguinal hernias. Bones: Multilevel spondylosis. No acute fracture. IMPRESSION: 1. Findings compatible with acute cholecystitis. 2. Thickening of the proximal duodenum thought to be reactive. 3. Other findings as above. Electronically signed by: Aashish Wren MD 09/10/2020 3:35 AM BUFFER COPPER Due to temporary technical issues with the PACS/Fluency reporting system, reports are being signed by the in house radiologist without review as a courtesy to ensure prompt reporting. The interpreting r adiologist is fully responsible for the content of the report.
[2020-09-10] MEDS: NA CHLORIDE 0.9% 1,000 ML IV SCH ×2 (10:16→17:46)
[2020-09-10] MEDS: MORPHINE 2 MG/ML SYR IV PRN (11:37)
[2020-09-10] MEDS: PIPER/TAZO/NS 3.375gm 3.375 GM/100 ML BAG IVPB SCH ×2 (11:37→18:18)
[2020-09-10] MEDS: ONDANSETRON 4 MG/2 ML VIAL IV PRN (11:37)
[2020-09-10 12:18] LABS: Urine Appearance CLEAR; Urine Blood NEGATIVE (NEG); Urine Color ORANGE; Urine Glucose NEGATIVE (NEG); Urine Protein 1+ (NEG); Urine Specific Gravity >=1.030 (1.005-1.030)
[2020-09-10 12:25] LABS: Urine Bilirubin 1+ (NEG); Urine Microscopic Reflex ORDER UMIC
[2020-09-10 12:37] LABS: Urine Amorphous Sediment 1+ /HPF (NONE SEEN); Urine Bacteria NONE SEEN /HPF (NONE SEEN); Urine Culture Reflex Order NOT NEEDED; Urine RBC NONE SEEN /HPF (NONE SEEN)
[2020-09-10] MEDS: LORazepam 2 MG/ML VIAL IV ONE ×2 (14:37→14:38)
--- NOTE | 2020-09-10 16:43 | RAD REPORT ---
EXAM DESCRIPTION: [id number]/6/2020 4:10 pm CLINICAL HISTORY: Abdominal pain COMPARISON: September 10, 2020 cat scan and ultrasound TECHNIQUE: Magnetic resonance cholangiogram was performed.3D MIP reconstruction performed FINDINGS: Small gallstone. Gallbladder wall is thickened. Small amount of pericholecystic fluid The biliary tree is normal caliber. Signal void is present the distal common bile duct Pancreatic duct is normal caliber IMPRESSION: Cholelithiasis. Thickened gallbladder wall consistent with cholecystitis Signal void within the distal common bile duct does not have the typical appearance of a stone. It ma y be secondary to spasm or artifact
[2020-09-10] MEDS ORDERED: ENOXAPARIN 40 MG/0.4 ML SQ SCH (17:00)
--- NOTE | 2020-09-10 19:28 | CON ---
Date of Consultation: 09/10/2020 Diagnosis: Acute cholecystitis. History Of Present Illness: This is a case of a 55-year-old patient, comes to us complaining for abo ut 5 days history of abdominal pain started on Sunday, got better and then came back again a fter eating some chicken. The patient was admitted to the hospital with abdominal pain last night. Also found to have liver enzymes elevated and a surgical consult and GI consult were obtained. The p atient feels better today, still right upper quadrant tenderness. He denies any dysuria, hematuria, hematochezia, melena. He denies any recent traveling out of the country. Denies any family member s ick at home. Today, he supposed to have an MRCP, but he has not done that yet. GI consult still pen ketty too. Allergies: NONE. Medications: Including BuSpar, aspirin, magnesium, Nicoderm. Medical Problems: Include vat-[id number]-[id number] diabetes, hypertension, obesity. Social Habits: He has smokes every day. The patient advised importance of smoking cessation. He do es not drink alcohol. No IV drug use. Review of Systems: Ten points otherwise unremarkable. Physical Examination: General: The patient is awake alert. HEENT: Pupils equal, reactive, anicteric. Neck: Supple. Chest: Clear. Abdomen: Epigastric right upper quadrant tenderness. Extremities: Good capillary refill. Rectal: Deferred. Laboratory Data: Blood work shows WBC count of 18, total bili elevated. Abdominal ultrasound and CA T scan shows a cholelithiasis with a finding consistent with cholecystitis. Assessment: A 55-year-old patient, acute cholecystitis, symptomatic cholelithiasis, diabetes, obesit y, hypertension. The patient is going to be seen by GI, most likely get an MRCP. The benefits, alte rnatives, and risks of laparoscopic possible open cholecystectomy fully explained which include, but not limited to infection, bleeding, damage to adjacent structures, anesthesia complication, choledoch olithiasis, bile leak, pancreatitis, MD and even . He also understands this may not relieve sym ptoms. He might need more than one surgical intervention. He understood, signed a consent. ANNIKA/TARA Voice ID: [id number] Report ID: [id number]
[2020-09-11] MEDS: PIPER/TAZO/NS 3.375gm 3.375 GM/100 ML BAG IVPB SCH ×3 (00:27→16:37)
[2020-09-11] MEDS: NA CHLORIDE 0.9% 1,000 ML IV SCH ×3 (03:37→23:46)
[2020-09-11 06:42] LABS: Absolute Lymphocytes (CBC) 1.3 K/uL (0.7-4.9); Basophils % 0.6 % (0-1.3); Lymphocytes % 8.2 % (15.3-44.8); RBC Red Blood Cell Count 3.95 M/uL (4.33-5.43)
[2020-09-11 06:52] LABS: Albumin 2.5 g/dL (3.4-5.0); Bilirubin Total 1.3 mg/dL (0.2-1.0); Potassium 3.4 mmol/L (3.5-5.1); Protein, Total 7.1 g/dL (6.4-8.2)
[2020-09-11 06:59] LABS: Protime INR 1.3
[2020-09-11] MEDS: KCL 20 MEQ/100 mL IVPB 20 MEQ/100 ML BAG IV SCH ×2 (07:48→10:00)
[2020-09-11] MEDS ORDERED: FENTANYL CITR 100 MCG/2 ML ONE (09:44)
[2020-09-11] MEDS ORDERED: MIDAZOLAM HCL 2 MG/2 ML INJ ONE (09:44)
[2020-09-11] MEDS ORDERED: LIDOCAINE 1% MPF 5 ML VIAL ONE (09:44)
[2020-09-11] MEDS ORDERED: propofoL 200 MG/20 ML VIAL IV ONE (09:44)
[2020-09-11] MEDS ORDERED: dexAMETHasone 4 MG/ML VIAL ONE (09:44)
[2020-09-11] MEDS ORDERED: GLYCOPYRROLATE 0.2 MG/ML SYR ONE (09:44)
[2020-09-11] MEDS ORDERED: NEOSTIGMINE 1 MG/ML -5 ML ONE (09:45)
[2020-09-11] MEDS ORDERED: ONDANSETRON 4 MG/2 ML VIAL ONE ×2 (09:46→11:37)
[2020-09-11] MEDS ORDERED: MORPHINE 10 MG/ML VIAL ONE (09:46)
[2020-09-11] MEDS ORDERED: ROCURONIUM 50 MG/5 ML VIAL IV ONE (09:46)
[2020-09-11] MEDS ORDERED: Ringers Lactate 1,000 ML IV ONE ×2 (09:47→11:38)
--- NOTE | 2020-09-11 11:08 | P.BOP ---
Preoperative diagnosis: acute cholecytitis, symptomatic cholelithiasis Postoperative diagnosis: same plus gangrenous gallbladder Primary procedure: Laparoscopic cholecystectomy Estimated blood loss: <30cc Specimen: gb Findings: gangrenous gallbladder Anesthesia: General Complications: None Drain(s): DIANNE drain Transferred to: Recovery Room Condition: Good
[2020-09-11] MEDS: HYDROMORPHONE HCL 1 MG/ML INJ ONE ×2 (11:25→11:35)
[2020-09-11] MEDS ORDERED: POTASSIUM 25 MEQ EFFERV TAB PO ONE (13:57)
--- NOTE | 2020-09-11 14:47 | P.PN ---
Subjective Date of Service: 09/10/20 Patient initially had decided not to do MRCP. However, consultants were able to get patient to agree with intervention. MRCP was performed and at this time we are waiting on results. Appreciate General surgery and GI recommendation. Waiting for test results to come back but we will probably need to proceed with surgery over the next 48 hr. Review of Systems 10-point ROS is otherwise unremarkable Physical Examination - Vital Signs Temperature: 98.3 F Blood Pressure: 131/68 Pulse: 89 Respirations: 26 Pulse Ox (%): 92 - Physical Exam General: Alert, In no apparent distress, Oriented x3 Respiratory: Clear to auscultation bilaterally, Normal air movement Cardiovascular: Regular rate/rhythm, Normal S1 S2 Gastrointestinal: Normal bowel sounds, Soft and benign, Non-distended, No guarding, Tenderness, Rebound Musculoskeletal: No clubbing, No swelling, No tenderness Neurological: Sensation intact, Cranial nerves 3-12 intact - Studies Medications List Reviewed: Yes Assessment & Plan - Problems (Diagnosis) (1) Acute cholecystitis Current Visit: Yes Status: Acute (2) Cholelithiasis Current Visit: Yes Status: Acute Qualifiers: Cholelithiasis location: gallbladder Cholecystitis presence: with cholecystitis Cholecystitis acuity: acute Biliary obstruction: without biliary obstruction Qualified Code(s): K80.00 - Calculus of gallbladder with acute cholecystitis without obstruction (3) Sepsis Current Visit: Yes Status: Acute Qualifiers: Sepsis type: sepsis due to unspecified organism Sepsis acute organ dysfunction status: without acute organ dysfunction Qualified Code(s): A41.9 - Sepsis, unspecified organism (4) Hypertension Current Visit: Yes Status: Chronic Qualifiers: Hypertension type: essential hypertension Qualified Code(s): I10 - Essential (primary) hypertension (5) CLEM (acute kidney injury) Current Visit: No Status: Acute (6) PAD (peripheral artery disease) Current Visit: No Status: Acute - Plan 1. Continue with IV hydration 2. Continue with IV antibiotics 3. Continue with pain control 4. NPO 5. GI & general surgery consultation appreciated; awaiting for MRCP results. 6. Serial H&H, and we will monitor CBC, BMP, LFTs and lipase along with electrolytes. 7. GI and DVT prophylaxis Discharge Plan: Home Plan to discharge in: Greater than 2 days - Advance Directives Does patient have a Living Will: No Does patient have a Durable POA for Healthcare: No - Code Status/Comfort Care Code Status: Full Code Critical Care: No Time Spent Managing PTS Care (In Minutes): 35
--- NOTE | 2020-09-11 14:54 | P.PN ---
Subjective Date of Service: 09/11/20 Patient was taken to the operating room. Patient is status post laparoscopic cholecystectomy. Patient was found to have a gangrenous gallbladder. Patient will be continued IV antibiotic therapy. Monitor DIANNE drain. Continue with gentle hydration and start diet if okay with surgery. Review of Systems 10-point ROS is otherwise unremarkable Physical Examination - Vital Signs Temperature: 98.3 F Blood Pressure: 131/68 Pulse: 89 Respirations: 26 Pulse Ox (%): 92 - Physical Exam General: Alert, In no apparent distress, Oriented x3 HEENT: Atraumatic, Normocephalic Respiratory: Clear to auscultation bilaterally, Normal air movement Cardiovascular: Regular rate/rhythm, Normal S1 S2, No murmurs Gastrointestinal: Normal bowel sounds, Soft and benign, Non-distended, Tenderness Musculoskeletal: No clubbing, No swelling, No erythema Neurological: Normal gait, Normal strength at 5/5 x4 extr, Sensation intact, Cranial nerves 3-12 intact - Studies Medications List Reviewed: Yes Assessment & Plan - Problems (Diagnosis) (1) Acute cholecystitis Current Visit: Yes Status: Acute (2) Cholelithiasis Current Visit: Yes Status: Acute Qualifiers: Cholelithiasis location: gallbladder Cholecystitis presence: with cholecystitis Cholecystitis acuity: acute Biliary obstruction: without biliary obstruction Qualified Code(s): K80.00 - Calculus of gallbladder with acute cholecystitis without obstruction (3) Sepsis Current Visit: Yes Status: Acute Qualifiers: Sepsis type: sepsis due to unspecified organism Sepsis acute organ dysfunction status: without acute organ dysfunction Qualified Code(s): A41.9 - Sepsis, unspecified organism (4) Hypertension Current Visit: Yes Status: Chronic Qualifiers: Hypertension type: essential hypertension Qualified Code(s): I10 - Essential (primary) hypertension (5) CLEM (acute kidney injury) Current Visit: No Status: Acute (6) PAD (peripheral artery disease) Current Visit: No Status: Acute - Plan 1. Continue with IV hydration 2. Continue with IV antibiotics 3. Continue with pain control 4. started on diet per general surgery 5. GI & general surgery consultation appreciated 6. Continue with monitoring labs at this time. 7. GI and DVT prophylaxis Discharge Plan: Home Plan to discharge in: Greater than 2 days - Advance Directives Does patient have a Living Will: No Does patient have a Durable POA for Healthcare: No - Code Status/Comfort Care Code Status: Full Code Critical Care: No Time Spent Managing PTS Care (In Minutes): 35
--- NOTE | 2020-09-11 15:07 | OP ---
Date of Procedure: 09/11/2020 Surgeon: Graeme Wharton MD Preoperative Diagnoses: Acute cholecystitis, symptomatic cholelithiasis, right upper quadrant abdomi nal pain. Postoperative Diagnoses: Acute cholecystitis, symptomatic cholelithiasis, right upper quadrant abdom inal pain plus gangrenous cholecystitis. Procedure: Laparoscopic cholecystectomy. Estimated Blood Loss: Less than 30 cc. Specimen: Gallbladder. Anesthesia: General plus local. Drains: DIANNE #10. Findings: The patient has a gangrenous gallbladder with large amount of fibrin present. Adhesions p resent, thickening of gallbladder. Gallbladder perforation with drainage. Indications: This is a case of a male, who comes to us in last few hours with acute abdominal pain, although he has been suffering for about a week. We obtained MRI, ultrasounds to rule out a common b ile duct obstruction and then offered him a laparoscopic possible open cholecystectomy with benefits, alternatives, and risks including, but not limited to infection, bleeding, damage to adjacent struct ures, anesthesia complication, choledocholithiasis, bile leak, pancreatitis, MD, and . He also understands this may not relieve symptoms. He might need more than one surgical intervention. He un derstood, signed a consent. Procedure In Detail: The patient was brought to the operating room, placed in supine position. Anes thesia was done without complication. Abdomen was prepped and draped in a sterile fashion. Marcaine 0.5% was injected for local anesthetic followed by sharp incision of the skin in the infraumbilical region. Incision was carried down to fascia, which was opened under direct vision. Peritoneum was e ncountered, opened under direct vision. Vicryl #1 placed inside the fascia. Noé trocar was caref ully introduced. No bleeding was obtained. Immediately, we noticed acute inflammation in the right upper quadrant. Apparently, this patient probably have leakage of the gallbladder on the fundus of t he gallbladder. There was omentum wrapped in this gallbladder. There was fibrin present all over th e area, so carefully we placed 3 more trocars 5 mm each, one of them in the right upper quadrant epig astric area and then slowly after the patient was placed in reverse Trendelenburg position. Slowly, we worked our way into the gallbladder, removing all the adhesions from the gallbladder. This allowe d me to identify the fundus of the gallbladder. We noticed some gangrenous changes with a small area of the fundus of the gallbladder with the leakage of bile and in the infundibulum retract ing the gallbladder in the inferolateral fashion exposing the triangle of Calot obtaining critical vi ew. Cystic duct and cystic artery were clearly identified circumferentially and a connection between those and the gallbladder was clearly identified. I proceeded to ligate those by using at least 3 c lips proximal, 1 clip distal, ligation in middle. Same was done with the cystic artery. Hepatic art eries and common bile duct were protected at all times. We removed the gallbladder from liver using Bovie cauterizer and removed from abdominal cavity using EndoCatch through the umbilical incision. A romero was inspected. Once again profuse irrigation was done. Due to the findings, I believe it is saf e to place a DIANNE drain there to help us with the drainage. At this moment, we have no bile drainage, but we have severe inflammation of the area and infection. So, the DIANNE drain was exiting through one of the trocar sites. Inspection once again showed no bile leak, no bleeding. At that moment, I proc eeded to remove the trocars under direct vision. Deflated pneumoperitoneum. Closed the pneumoperito neum, closed the fascia with #1 Vicryl. Irrigated subcutaneous tissue, closed it with 3-0 chromic an d skin with jenny. Sponge count, instrument counts correct. DIANNE was secured in place with 3-0 nylo n and connected to bulb suction. The patient was sent to recovery in stable condition. The patient will require IV antibiotics. ANNIKA/TARA Voice ID: [id number] Report ID: [id number]
[2020-09-11] MEDS: ONDANSETRON 4 MG/2 ML VIAL IV PRN (19:43)
[2020-09-11] MEDS: MORPHINE 2 MG/ML SYR IV PRN (19:43)
[2020-09-11] MEDS: HYDROCODONE/APAP 7.5/325 MG TAB PO PRN (22:23)
[2020-09-11] MEDS ORDERED: POTASSIUM CL SA 10 MEQ TAB PO ONE (22:37)
[2020-09-12] MEDS: PIPER/TAZO/NS 3.375gm 3.375 GM/100 ML BAG IVPB SCH ×3 (00:24→16:00)
[2020-09-12] MEDS: MORPHINE 2 MG/ML SYR IV PRN (00:37)
[2020-09-12] MEDS: ONDANSETRON 4 MG/2 ML VIAL IV PRN (00:37)
[2020-09-12] MEDS: NA CHLORIDE 0.9% 1,000 ML IV SCH ×2 (06:17→16:01)
[2020-09-12 07:02] LABS: BUN Blood Urea Nitrogen 8 mg/dL (7-18); Bicarbonate 26 mmol/L (21-32); Glucose Level 113 mg/dL (74-106); Potassium 3.7 mmol/L (3.5-5.1); Sodium Level 138 mmol/L (136-145)
[2020-09-12] MEDS ORDERED: POTASSIUM CL SA 10 MEQ TAB PO ONE (07:08)
[2020-09-12] MEDS: HYDROCODONE/APAP 7.5/325 MG TAB PO PRN ×3 (07:37→20:48)
--- NOTE | 2020-09-12 17:54 | P.PN ---
Subjective Date of Service: 09/12/20 Primary Care Provider: [facility] Chief Complaint: Acute Cholecystitis Subjective: No new changes (s/p lap manuel yesterday. Still has some post-op tenderness. Tolerating p.o. diet.) Review of Systems 10-point ROS is otherwise unremarkable Gastrointestinal: Nausea, Abdominal Pain (post-op) Physical Examination - Vital Signs Temperature: 98.5 F Blood Pressure: 131/66 Pulse: 85 Respirations: 16 Pulse Ox (%): 95 - Physical Exam General: Alert, Oriented x3, Cooperative HEENT: Atraumatic, Normocephalic, PERRLA, EOMI Neck: Supple Respiratory: Normal air movement Cardiovascular: Normal pulses Gastrointestinal: Tenderness (post-op pain) Neurological: Normal speech, Normal strength at 5/5 x4 extr - Studies Medications List Reviewed: Yes Assessment And Plan - Current Problems (Diagnosis) (1) Acute cholecystitis Current Visit: Yes Status: Acute (2) Cholelithiasis Current Visit: Yes Status: Acute Qualifiers: Cholelithiasis location: gallbladder Cholecystitis presence: with cholecystitis Cholecystitis acuity: acute Biliary obstruction: without biliary obstruction Qualified Code(s): K80.00 - Calculus of gallbladder with acute cholecystitis without obstruction (3) Sepsis Current Visit: Yes Status: Acute Qualifiers: Sepsis type: sepsis due to unspecified organism Sepsis acute organ dysfunction status: without acute organ dysfunction Qualified Code(s): A41.9 - Sepsis, unspecified organism (4) Hypertension Current Visit: Yes Status: Chronic Qualifiers: Hypertension type: essential hypertension Qualified Code(s): I10 - Essential (primary) hypertension (5) Non-insulin dependent type 2 diabetes mellitus Current Visit: Yes Status: Chronic - Plan REC: 1) diet as per surgery 2) will sign off
--- NOTE | 2020-09-12 21:57 | CON ---
Date of Consultation: 09/10/2020 Reason For Consultation: Right upper quadrant and right lower quadrant pain with acute cholecystitis . History Of Present Illness: The patient is a 55-year-old white male with history of diabetes, hypert ension, obesity. The patient presented to the hospital with acute right upper and right lower quadra nt pain, found to have acute cholecystitis with ultrasound of the abdomen revealing gallbladder wall thickening, pericholecystic fluid, and gallstones in gallbladder. CT scan also revealing acute manuel cystitis with inflamed gallbladder wall, multiple gallstones in the gallbladder. AST and ALT were no rmal at 28 and 37, alkaline phosphatase was normal at 120, total bilirubin was 1.6, direct bilirubin is 0.8. The patient's white count was elevated at 18.4 consistent with sepsis due to acute cholecyst itis. Imaging of the biliary tree and ultrasound were negative. Past Medical History: Significant for diabetes, hypertension, obesity. Medications: At home included BuSpar, Coreg, Zestril, aspirin, atorvastatin, magnesium oxide, and Ni coderm. Allergies: NKDA. Social History: Single. Never . No kids. Tobacco, 1 pack per day. 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 Family History: Father with coronary disease and CABG. Mother with dementia, Alzheimer disease, and had strokes. Review of Systems: The patient has right upper quadrant and right lower quadrant pain. He denies any significant nausea , vomiting, fevers, chills, night sweats, heat or cold intolerance, melena, muscle aches, joint aches , backaches. No chest pain, shortness of breath, seizure, syncope, lower extremity edema, muscle ach es, joint aches, backaches, depression, anxiety. Physical Examination: Vital Signs: The patient is 5 feet 7 inches, 280 pounds, BMI of 43.9 kg/sq m. He has a temperature of 97.8 degrees Fahrenheit, pulse 103, respirations 29, blood pressure 118/65, O2 saturation 95%. General: He is an obese male, lying in bed, in no acute distress. HEENT: Normocephalic, atraumatic. Anicteric. Pupils equal, round, and react to light. Extraocular movements intact. Oropharynx clear. Neck: Supple. No masses. Respirations: Clear to auscultation bilaterally. Heart: Regular rate and rhythm. No gallops or rubs. Abdomen: Positive bowel sounds. Soft, nondistended, obese. Pain in the right upper quadrant and ri ght lower quadrant areas. The patient on pain medications already. Extremities: No clubbing, cyanosis, or edema. 2+ pulses. Maybe some mild lower extremity edema. Neuro: Alert and oriented x3. Grossly nonfocal. 5/5 motor strength. Able to move all extremities well. Laboratory Data: The patient has a white count of 18.4, hemoglobin of 17, hematocrit 48.9, MCV of 98 , platelet count 391, polys of 85%, lymphocytes 9%, monocytes 6%. The patient has a PT of 13.7, INR of 1.16. The patient has a sodium 136, potassium 3.5, chloride 99, bicarb 26, BUN 18, creatinine of 1.46, glucose 139, lactate of 2.4 down to 1.4, calcium 9.8, magnesium 2.3, total bilirubin 1.63, bili montoya 0.8, AST of 28, ALT of 37, alkaline phosphatase 120. Troponin I less than 0.02. B-type natriu retic peptide of 158. Total protein 9.7, albumin 3.6, lipase 131. UA revealed trace ketones, 1+ rosalia irubin, 4+ urobilinogen, less than 5 squamous epithelial cells, 1+ protein. Imaging: CT abdomen and pelvis reveals acute cholecystitis with thickening of the gallbladder wall a nd gallstones in gallbladder. Ultrasound of the abdomen revealed thickened gallbladder wall, pericho lecystic fluid, gallstones in gallbladder and normal common bile duct. Impression: 1.Acute cholecystitis, right upper quadrant and right lower quadrant pain with normal liver enzymes with AST of 28, ALT of 37, alkaline phosphatase 120, total bilirubin of 1.6, direct bilirubin of 0.8. Ultrasound did reveal cholecystitis with gallbladder wall thickening, pericholecystic fluid, gallst ones in gallbladder with a normal common bile duct. CT scan revealed acute cholecystitis with modera te gallbladder inflammation and gallstones in gallbladder. 2.Sepsis. White count of 18.4 due to acute cholecystitis. 3.History of diabetes, hypertension, obesity. Recommendations: 1.MRCP, which was largely negative except showing gallstones in gallbladder, gallbladder wall thicke sai, and a signal void in the distal common bile duct, thought to be an artifact and normal pancreat ic duct. 2.Laparoscopic cholecystectomy as per Surgery. 3.P.r.n. pain medicines, antiemetics. 4.Continue IV fluids and IV antibiotics as well. AMA/TARA Voice ID: [id number] Report ID: [id number]
[2020-09-13] MEDS: PIPER/TAZO/NS 3.375gm 3.375 GM/100 ML BAG IVPB SCH ×2 (00:17→09:00)
[2020-09-13] MEDS: HYDROCODONE/APAP 7.5/325 MG TAB PO PRN ×2 (03:45→09:44)
[2020-09-13] MEDS: NA CHLORIDE 0.9% 1,000 ML IV SCH ×2 (03:45→04:08)
[2020-09-13 04:58] VITALS: O2SAT 93
[2020-09-13 06:09] LABS: BUN Blood Urea Nitrogen 7 mg/dL (7-18); Bicarbonate 27 mmol/L (21-32); Glucose Level 103 mg/dL (74-106); Potassium 3.3 mmol/L (3.5-5.1); Sodium Level 137 mmol/L (136-145)
--- NOTE | 2020-09-13 06:59 | P.PN ---
Subjective Date of Service: 09/12/20 doing well. Tolerating diet but still having some pain. DIANNE drain is draining serosanguineous fluid. About 50 cc during daytime shift. Overall patient is doing better and anticipate discharge over the next 24-48 hours pending general surgery recommendation Review of Systems 10-point ROS is otherwise unremarkable Physical Examination - Vital Signs Temperature: 98.3 F Blood Pressure: 131/68 Pulse: 89 Respirations: 26 Pulse Ox (%): 92 - Physical Exam General: Alert, In no apparent distress, Oriented x3 Respiratory: Clear to auscultation bilaterally, Normal air movement Cardiovascular: Regular rate/rhythm, Normal S1 S2, No murmurs Gastrointestinal: Normal bowel sounds, Other ( DIANNE drain in place), Tenderness Musculoskeletal: No clubbing, No swelling, No tenderness Neurological: Sensation intact, Cranial nerves 3-12 intact - Studies Medications List Reviewed: Yes Assessment & Plan - Problems (Diagnosis) (1) Acute cholecystitis Current Visit: Yes Status: Acute (2) Cholelithiasis Current Visit: Yes Status: Acute Qualifiers: Cholelithiasis location: gallbladder Cholecystitis presence: with cholecystitis Cholecystitis acuity: acute Biliary obstruction: without biliary obstruction Qualified Code(s): K80.00 - Calculus of gallbladder with acute cholecystitis without obstruction (3) Sepsis Current Visit: Yes Status: Acute Qualifiers: Sepsis type: sepsis due to unspecified organism Sepsis acute organ dysfunction status: without acute organ dysfunction Qualified Code(s): A41.9 - Sepsis, unspecified organism (4) Hypertension Current Visit: Yes Status: Chronic Qualifiers: Hypertension type: essential hypertension Qualified Code(s): I10 - Essential (primary) hypertension (5) CLEM (acute kidney injury) Current Visit: No Status: Acute (6) PAD (peripheral artery disease) Current Visit: No Status: Acute (7) Gangrene of gallbladder in cholecystitis Current Visit: Yes Status: Acute - Plan 1. Continue with IV hydration 2. Continue with IV antibiotics 3. Continue with pain control 4. started on diet per general surgery 5. GI & general surgery consultation appreciated 6. Continue with monitoring labs at this time. 7. anticpate discharge home the next 24-48 hours/DIANNE drain remains in place. 50 cc of output on the day shift. 8. GI and DVT prophylaxis Discharge Plan: Home Plan to discharge in: Greater than 2 days - Advance Directives Does patient have a Living Will: No Does patient have a Durable POA for Healthcare: No - Code Status/Comfort Care Code Status: Full Code Critical Care: No Time Spent Managing PTS Care (In Minutes): 30
[2020-09-13] MEDS ORDERED: POTASSIUM 25 MEQ EFFERV TAB PO ONE (07:45)
--- NOTE | 2020-09-13 08:13 | P.DS ---
Admission Date: 09/10/20 Discharge Date: 09/13/20 Primary Care Provider: OOT Disposition: ROUTINE DISCHARGE Discharge Condition: GOOD Reason for Admission: Acute Cholecystitis Consultations: GI-Dr. Ferrell Surgery-Dr. Wharton Procedures: CT Scan: COMPARISON: None available for comparison. FINDINGS: Lung bases: Bibasilar subsegmental atelectasis/pleural parenchymal scar. The heart is mildly enlarged. Coronary artery calcification. Liver: The liver is enlarged. Gallbladder and biliary system: Gallstones within a distended and thickened ga llbladder. Moderate surrounding inflammation. Pancreas: Mild pancreatic parenchymal atrophy and fatty replacement. Spleen: Unremarkable Adrenals: Bilateral nodular adrenal thickening. Kidneys: Normal renal cortical enhancement. Right renal cysts measuring 3.2 cm at the lateral upper to 0.5 cm at the anterior lower pole. No calculi. No hydronephrosis. Bowel: Mild thickening of the proximal duodenum. Colonic diverticula without adjacent inflammatory change. No obstruction. Appendix: Normal caliber appendix. No findings to suggest acute appendicitis. Urinary bladder: Unremarkable Reproductive: Unremarkable as visualized Lymph nodes: Top normal juan carlos hepatic and portacaval lymph nodes. Peritoneum: Small amount of free fluid within the right abdomen and lower pelvis. No free air. Vessels: Moderate atherosclerotic disease. No abdominal aortic aneurysm. Abdominal wall: Small fat-containing umbilical and bilateral inguinal hernias. Bones: Multilevel spondylosis. No acute fracture. IMPRESSION: 1. Findings compatible with acute cholecystitis. 2. Thickening of the proximal duodenum thought to be reactive. 3. Other findings as above. MRCP: COMPARISON: None available for comparison. FINDINGS: Lung bases: Bibasilar subsegmental atelectasis/pleural parenchymal scar. The heart is mildly enlarged. Coronary artery calcification. Liver: The liver is enlarged. Gallbladder and biliary system: Gallstones within a distended and thickened gallbladder. Moderate surrounding inflammation. Pancreas: Mild pancreatic parenchymal atrophy and fatty replacement. Spleen: Unremarkable Adrenals: Bilateral nodular adrenal thickening. Kidneys: Normal renal cortical enhancement. Right renal cysts measuring 3.2 cm at the lateral upper to 0.5 cm at the anterior lower pole. No calculi. No hydronephrosis. Bowel: Mild thickening of the proximal duodenum. Colonic diverticula without adjacent inflammatory change. No obstruction. Appendix: Normal caliber appendix. No findings to suggest acute appendicitis. Urinary bladder: Unremarkable Reproductive: Unremarkable as visualized Lymph nodes: Top normal juan carlos hepatic and portacaval lymph nodes. Peritoneum: Small amount of free fluid within the right abdomen and lower pelvis. No free air. Vessels: Moderate atherosclerotic disease. No abdominal aortic aneurysm. Abdominal wall: Small fat-containing umbilical and bilateral inguinal hernias. Bones: Multilevel spondylosis. No acute fracture. IMPRESSION: 1. Findings compatible with acute cholecystitis. 2. Thickening of the proximal duodenum thought to be reactive. 3. Other findings as above. Surgery: Date of Procedure: 09/11/2020 Surgeon: Graeme Wharton MD Preoperative Diagnoses: Acute cholecystitis, symptomatic cholelithiasis, right upper quadrant abdominal pain. Postoperative Diagnoses: Acute cholecystitis, symptomatic cholelithiasis, right upper quadrant abdominal pain plus gangrenous cholecystitis. Procedure: Laparoscopic cholecystectomy. Estimated Blood Loss: Less than 30 cc. Specimen: Gallbladder. Anesthesia: General plus local. Drains: DIANNE #10. Findings: The patient has a gangrenous gallbladder with large amount of fibrin present. Adhesions present, thickening of gallbladder. Gallbladder perforation with drainage. Medical Problem List: Abdominal pain with noted severe sepsis secondary to acute gangrenous cholecystitis with cholelithiasis status post cholecystectomy Hypertension Acute renal injury likely dehydration Anxiety Obesity, BMI 43.9 Brief History of Present Illness: 55-year-old male with history of hypertension and anxiety. Patient presented with abdominal pain. Patient found to have elevated white count with tachycardia. Sepsis was suspected. Patient found to have acute cholecystitis with cholelithiasis. Patient admitted for further evaluation and treatment. Sepsis protocol initiated. Hospital Course: Patient presented with abdominal pain with noted severe sepsis. Patient found to have acute gangrenous cholecystitis with cholelithiasis. Patient was admitted for further evaluation and treatment. Patient received sepsis protocol treatment. Sepsis now resolved. Patient was seen and evaluated by GI and surgery. MRCP showed cholelithiasis and cholecystitis. No biliary dilatation noted. Surgery recommended intervention. Patient had laparascopic Cholecystectomy. DIANNE tube in place. Patient has done well post operatively. Patient able the tolerate current diet. Case discussed in detail with surgery. At discharge patient will continue with Levaquin 500 mg daily for 7 days. DIANNE tube to remain in place. This will be removed either on Sunday or Sunday when the patient follows up with surgery. DIANNE tube instructions will be provided. Patient may take showers with dressing off. No heavy lifting, pushing or pulling. Post operative instructions will be provided. Recommend follow up with surgery either Sunday or Sunday as above. Patient will continue with incentive spirometer. Patient with hypertension. This is stable. Patient may continue with carvedilol 12.5 mg 1 pill twice daily and lisinopril 40 mg daily. Recommend to maintain blood pressure less than 130/80. May need to hold blood pressure medication if systolic less than 110. Further adjustment in medication can be done by his PCP. Patient is new to the area. A list of providers in the area will be provided so that he can establish care. Patient with anxiety. At discharge patient will continue with Buspar 10 mg 3 times a day. Recommend follow up with PCP to further monitor and address. There was some suspicion of diabetes. A1c 5.4. No evidence of diabetes at this time. This can be monitored as an outpatient. Patient with obesity, BMI 43.9. Lifestyle modification education provided. Vital Signs/Physical Exam: Temp Pulse Resp BP Pulse Ox 98.3 F 89 26 H 131/68 92 09/13/20 06:58 09/13/20 06:58 09/13/20 06:58 09/13/20 06:58 09/13/20 06:58 General: Alert, In no apparent distress, Oriented x3, Cooperative HEENT: Atraumatic Neck: Supple Respiratory: Clear to auscultation bilaterally, Normal air movement Cardiovascular: Normal pulses, Regular rate/rhythm Gastrointestinal: Normal bowel sounds, Soft and benign, Non-distended, No tenderness, No masses, No rebound, No guarding, Other (DIANNE tube in place. Postsurgical changes noted.) Musculoskeletal: No erythema, No tenderness, No warmth Integumentary: No tenderness/swelling, No erythema, No warmth, No cyanosis Neurological: Normal speech, Normal strength at 5/5 x4 extr, Normal tone, Normal affect Laboratory Data at Discharge: WBC 15.9 K/uL (4.3-10.9) H 09/11/20 06:14 Hgb 13.4 g/dL (13.6-17.9) L D 09/11/20 06:14 Hct 39.0 % (39.6-49.0) L D 09/11/20 06:14 Plt Count 333 K/uL (152-406) 09/11/20 06:14 PT 15.3 SECONDS (9.5-12.5) H 09/11/20 06:14 INR 1.30 09/11/20 06:14 APTT 27.0 SECONDS (24.3-36.9) 09/11/20 06:14 Sodium 137 mmol/L (136-145) 09/13/20 05:16 Potassium 3.3 mmol/L (3.5-5.1) L 09/13/20 05:16 BUN 7 mg/dL (7-18) 09/13/20 05:16 Creatinine 0.71 mg/dL (0.55-1.3) 09/13/20 05:16 Glucose 103 mg/dL (74-106) 09/13/20 05:16 Phosphorus 3.0 mg/dL (2.5-4.9) 09/11/20 06:14 Magnesium 2.0 mg/dL (1.8-2.4) 09/11/20 06:14 Total Bilirubin 1.3 mg/dL (0.2-1.0) H 09/11/20 06:14 AST 37 U/L (15-37) 09/11/20 06:14 ALT 22 U/L (12-78) 09/11/20 06:14 Alkaline Phosphatase 80 U/L (45-117) 09/11/20 06:14 Lipase 142 U/L (73-393) 09/11/20 06:14 Home Medications: Buspirone HCl [Buspar] 10 mg PO TID 06/24/20 Carvedilol [Coreg] 12.5 mg PO BID 06/24/20 Lisinopril [Zestril] 40 mg PO DAILY 06/24/20 levoFLOXacin [Levaquin] 500 mg PO DAILY #7 tab 09/13/20 New Medications: levoFLOXacin [Levaquin] 500 mg PO DAILY #7 tab Patient Discharge Instructions: 1. Patient will need to establish care with a local PCP to follow up this hospitalization and continue his care. 2. Patient presented with abdominal pain with noted severe sepsis. Patient found to have acute gangrenous cholecystitis with cholelithiasis. Patient was admitted for further evaluation and treatment. Patient received sepsis protocol treatment. Sepsis now resolved. Patient was seen and evaluated by GI and surgery. MRCP showed cholelithiasis and cholecystitis. No biliary dilatation noted. Surgery recommended intervention. Patient had laparascopic Cholecystectomy. DIANNE tube in place. Patient has done well post operatively. Patient able the tolerate current diet. Case discussed in detail with surgery. At discharge patient will continue with Levaquin 500 mg daily for 7 days. DIANNE tube to remain in place. DIANNE tube instruction will be provided. This will be removed either on Sunday or Sunday when the patient follows up with surgery. Patient may take showers with dressing off. No heavy lifting, pushing or pulling. Post operative instructions will be provided. Recommend follow up with surgery either Sunday or Sunday as above. Patient will continue with incentive spirometer. 3. Patient with hypertension. This is stable. Patient may continue with carvedilol 12.5 mg 1 pill twice daily and lisinopril 40 mg daily. Recommend to maintain blood pressure less than 130/80. May need to hold blood pressure medication if systolic less than 110. Further adjustment in medication can be done by his PCP. Patient is new to the area. A list of providers in the area will be provided so that he can establish care. 4. Patient with anxiety. At discharge patient will continue with Buspar 10 mg 3 times a day. Recommend follow up with PCP to further monitor and address. 5. There was some suspicion of diabetes. A1c 5.4. No evidence of diabetes at this time. This can be monitored as an outpatient. 6. Patient with obesity, BMI 43.9. Lifestyle modification education provided. Diet: AHA Activity: No lifting more than 10 lbs Followup: Unknown,U [Primary Care Provider] - Time spent managing pt's care (in minutes): 55
[2020-09-13] MEDS ORDERED: POTASSIUM 25 MEQ EFFERV TAB ONE (08:24)
[2020-09-13 15:13] VITALS: BP 128/58; TEMP 97
== END 2020-09-13 11:47 | disposition home or self-care (01) | DRG 854 ==
LOC: ER 01:17 → ERHOLD 06:26 → 2ND 07:40
PROVIDERS: ADMIT Hospitalist; ATTEND Family Medicine
PROC: 0W9G4ZZ Drainage of Peritoneal Cavity, Percutaneous Endoscopic Approach (ICD-10-PCS; 2020-09-11)
PROC: 0FT44ZZ Resection of Gallbladder, Percutaneous Endoscopic Approach (ICD-10-PCS; principal; 2020-09-11 10:00)
DX: A41.9 Sepsis, unspecified organism (principal); K80.00 Calculus of gallbladder with acute cholecystitis without obstruction; Z68.41 Body mass index [BMI] 40.0-44.9, adult; N17.9 Acute kidney failure, unspecified; E66.9 Obesity, unspecified; K82.A1 Gangrene of gallbladder in cholecystitis; E86.0 Dehydration; I73.9 Peripheral vascular disease, unspecified; F41.9 Anxiety disorder, unspecified; I10 Essential (primary) hypertension; F17.210 Nicotine dependence, cigarettes, uncomplicated; R65.20 Severe sepsis without septic shock; Z79.82 Long term (current) use of aspirin; Z79.899 Other long term (current) drug therapy; Z60.2 Problems related to living alone; Z20.828 Contact with and (suspected) exposure to other viral communicable diseases
CPT/HCPCS: 36415; 71045; 74177; 74181; 76705; 80048; 80053; 80076; 81003; 81015; 83036; 83605; 83690; 83735; 83880; 84100; 84132; 84484; 85025; 85610; 85730; 87040; 87086; 87088; 88304; 93005; 94010; 97116; 97161; 97530; 99285; J1100; J1170; J1650; J2250; J2270; J2405; J2543; J2704; J2710; J3010; J3480; J7030; J7040; J7120; Q9967; U0002

== ENCOUNTER 2020-09-20 14:00 | Inpatient (IN) | payer SELFPAY ==
[2020-09-20] MEDS ORDERED: ONDANSETRON 4 MG/2 ML VIAL ONE (17:14)
[2020-09-20] MEDS ORDERED: MORPHINE 4 MG/ML SYR ONE (17:14)
[2020-09-20 17:58] LABS: Absolute Lymphocytes (CBC) 2.3 K/uL (0.7-4.9); Basophils % 0.4 % (0-1.3); Hematocrit 44.3 % (39.6-49.0); Lymphocytes % 9.6 % (15.3-44.8); MPV 8.1 fL (7.6-11.3); RBC Red Blood Cell Count 4.56 M/uL (4.33-5.43)
[2020-09-20 18:22] LABS: Bilirubin Direct 0.1 mg/dL (0-0.2); Bilirubin Total 0.4 mg/dL (0.2-1.0); Potassium 3.4 mmol/L (3.5-5.1); Protein, Total 9.3 g/dL (6.4-8.2)
--- NOTE | 2020-09-20 19:08 | RAD REPORT ---
EXAM DESCRIPTION: CTAbdomen Pelvis W Contrast - 09/20/2020 6:53 pm CLINICAL HISTORY: Abdominal pain. 1 week s/p manuel, suprapubic pain;Abd pain COMPARISON: Abdomen Pelvis W Contrast dated 09/10/2020; Cholangiogram dated 09/10/2020; Abdomen Exam Limited dated 09/10/2020 TECHNIQUE: Biphasic CT imaging of the abdomen and pelvis was performed with 100 ml non-ionic IV cont rast. All CT scans are performed using dose optimization technique as appropriate and may include automated exposure control or mA/KV adjustment according to patient size. FINDINGS: The lung bases are clear. Small amount of free fluid is seen along the right hepatic edge. Cholecystectomy noted. Multiple low-density lesions have developed within the spleen since the 09/10/2020 study having the a ppearance of splenic infarcts. Area of reduced enhancement within the left kidney lateral superior po le and mid pole right kidney has also developed since the prior study as well. No bowel obstruction seen. Sigmoid diverticulosis coli without diverticulitis. Mild inflammation is s een in the right upper quadrant. The appendix is normal. No evidence of significant lymphadenopathy. No suspicious bony findings. IMPRESSION: Multiple low-density splenic lesions have developed since the comparative study most sug gestive of splenic infarcts. Areas of diminished density within the kidneys bilaterally, greater on the left, could indicate areas of renal infarct or pyelonephritis. Small amount of free fluid along the left hepatic edge is seen. This may be related to a small blood product or bile. HIDA scan could be obtained if clinical concern for biliary leak is present.
[2020-09-20 19:39] LABS: Urine Blood NEGATIVE (NEG); Urine Glucose NEGATIVE (NEG); Urine Protein 1+ (NEG); Urine Specific Gravity >1.030 (1.005-1.030); Urine pH 5.5 (5.0-7.0)
--- NOTE | 2020-09-20 20:17 | RAD REPORT ---
EXAM DESCRIPTION: RAD - Chest Single View - 09/20/2020 8:10 pm CLINICAL HISTORY: COUGH Chest pain. COMPARISON: Chest Single View dated 09/10/2020; Chest Single View dated 06/23/2020; Abdomen Pelvis W Contrast dated 09/20/2020 FINDINGS: Portable technique limits examination quality. Linear atelectasis is present right base. The lungs are otherwise clear. The heart is normal in size. No displaced fractures.
[2020-09-20] MEDS ORDERED: Levofloxacin 750mg IV 750 MG/150 ML BAG IV ONE (20:46)
[2020-09-20] MEDS ORDERED: FAMOTIDINE 20 MG/2 ML VIAL IV ONE (20:46)
[2020-09-20] MEDS ORDERED: METRONIDAZOLE 500mg IVPB 500 MG/100 ML BAG IV ONE (20:46)
--- NOTE | 2020-09-20 20:51 | ER ---
Nurse's Notes [facility] Name: Alcides Werner Age: 55 yrs Sex: Male : 1965 Arrival Date: 09/20/2020 Time: 14:05 Bed 18 Private MD: Diagnosis: Abdominal tenderness-sp laparoscopic manuel;Elevated white blood cell count;Infarction of spleen;Ischemia and infarction of kidney;Type 2 diabetes mellitus Presentation: 09/20 14:12 Chief complaint: Patient states: Lower abdominal pain off/on for 10 days ever since ll1 gallbladder surgery. Pain got more severe today with diarrhea. Coronavirus screen: Client denies travel out of the [place] in the last 14 days. At this time, the client does not indicate any symptoms associated with coronavirus-19. The client reports previous COVID testing was negative. Ebola Screen: Patient denies travel to an Ebola-affected area in the 21 days before illness onset. Initial Sepsis Screen: Does the patient meet any 2 criteria? No. Patient's initial sepsis screen is negative. Does the patient have a suspected source of infection? Yes: Acute abdominal pain. Risk Assessment: Do you want to hurt yourself or someone else? Patient reports no desire to harm self or others. Onset of symptoms was September 20, 2020. 14:12 Method Of Arrival: EMS: [facility] 14:12 Acuity: FELICIA 3 ll1 Historical: - Allergies: 14:11 No Known Allergies; ll1 - PMHx: 14:11 Diabetes - NIDDM; Hypertension; ll1 - PSHx: 14:11 Cholecystectomy; ll1 - Immunization history:: Flu vaccine is up to date. - Social history:: Smoking status: Patient reports the use of cigarette tobacco products, smokes one pack cigarettes per day. - Family history:: not pertinent. - Hospitalizations: : No recent hospitalization is reported. Screenin:20 Abuse screen: Denies threats or abuse. Nutritional screening: No deficits noted. em Tuberculosis screening: No symptoms or risk factors identified. Fall Risk None identified. Assessment: 17:20 General: Appears in no apparent distress. uncomfortable, Behavior is calm, cooperative, em appropriate for age, Denies fever. Pain: Complains of pain in abdomen Pain currently is 8 out of 10 on a pain scale. Neuro: Level of Consciousness is awake, alert, obeys commands, Oriented to person, place, time, situation, Appropriate for age. Cardiovascular: Capillary refill < 3 seconds Patient's skin is warm and dry. Respiratory: Airway is patent Respiratory effort is even, unlabored, Respiratory pattern is regular, symmetrical. GI: Abdomen is flat, Abd is soft X 4 quads Abdomen is tender to palpation X 4 quads. Derm: Skin is intact, is healthy with good turgor, Skin is pink, warm \T\ dry. Musculoskeletal: Capillary refill < 3 seconds, Range of motion: intact in all extremities. 18:00 Reassessment: Patient appears in no apparent distress at this time. Patient and/or em family updated on plan of care and expected duration. Pain level reassessed. Patient is alert, oriented x 3, equal unlabored respirations, skin warm/dry/pink. Patient denies pain at this time. Patient states feeling better. Patient states symptoms have improved. 19:15 General: Appears in no apparent distress. Behavior is calm, cooperative, appropriate wh for age. Pain: Complains of pain in abdomen. Neuro: Level of Consciousness is awake, alert, obeys commands, Oriented to person, place, time, situation, Appropriate for age. Cardiovascular: Heart tones S1 S2. Respiratory: Airway is patent Respiratory effort is even, unlabored, Respiratory pattern is regular, symmetrical. GI: Abdomen is round non-distended, Bowel sounds present X 4 quads. Abd is soft Abdomen is tender to palpation. : No signs and/or symptoms were reported regarding the genitourinary system. EENT: No signs and/or symptoms were reported regarding the EENT system. Derm: Skin is intact, is healthy with good turgor, Skin is pink, warm \T\ dry. normal. Musculoskeletal: Circulation, motion, and sensation intact. 20:30 Reassessment: Patient appears in no apparent distress at this time. No changes from previously documented assessment. Patient and/or family updated on plan of care and expected duration. Pain level reassessed. Patient is alert, oriented x 3, equal unlabored respirations, skin warm/dry/pink. 22:00 Reassessment: Patient appears in no apparent distress at this time. Patient and/or family updated on plan of care and expected duration. Pain level reassessed. Patient is alert, oriented x 3, equal unlabored respirations, skin warm/dry/pink. 23:15 Reassessment: Patient appears in no apparent distress at this time. Patient and/or wh family updated on plan of care and expected duration. Pain level reassessed. Patient is alert, oriented x 3, equal unlabored respirations, skin warm/dry/pink. Vital Signs: 14:12 BP 171 / 95; Pulse 82; Resp 20; Temp 97.5; Pulse Ox 100% ; Weight 127.01 kg; Height 5 ll1 ft. 7 in. (170.18 cm); Pain 8/10; 17:45 BP 117 / 68; Pulse 81; Resp 18; Pulse Ox 98% on R/A; em 19:15 BP 126 / 75; Pulse 78; Resp 18; Pulse Ox 98% on R/A; wh 20:30 BP 139 / 99; Pulse 83; Resp 18; Pulse Ox 99% on R/A; wh 22:00 BP 150 / 94; Pulse 86; Resp 18; Pulse Ox 99% on R/A; wh 23:15 BP 133 / 80; Pulse 70; Resp 18; Pulse Ox 100% on R/A; wh 14:12 Body Mass Index 43.85 (127.01 kg, 170.18 cm) ll1 ED Course: 14:05 Patient arrived in ED. mr 14:12 Arm band placed on. ll1 14:13 Triage completed. ll1 16:45 Alhaji Vee, RN is Primary Nurse. em 16:46 Hola Peck MD is Attending Physician. rn 17:20 Patient has correct armband on for positive identification. Bed in low position. Call em light in reach. Side rails up X2. Pulse ox on. NIBP on. 17:35 Inserted saline lock: 22 gauge in left antecubital area, using aseptic technique. Blood ss collected. Patient maintains SpO2 saturation greater than 95% on room air. 18:53 CT Abd/Pelvis - IV Contrast Only In Process Unspecified. EDMS 19:59 Attending Physician role handed off by Hola Peck MD conrado 19:59 Peter Jacques MD is Attending Physician. conrado 20:11 XRAY Chest (1 view) In Process Unspecified. EDMS 20:46 Ally Montoya MD is Hospitalizing Provider. conrado 22:15 First set of blood cultures drawn by me. jp3 22:20 by me, sent to lab. jp3 22:25 Second set of blood cultures drawn by me. jp3 23:33 No provider procedures requiring assistance completed. Patient admitted, IV remains in place. Administered Medications: 07:47 Drug: Zofran (Ondansetron) 4 mg Route: IVP; Site: left antecubital; em 18:54 Follow up: Response: No adverse reaction em 17:45 Drug: morphine 4 mg Route: IVP; Site: left antecubital; em 18:54 Follow up: Response: No adverse reaction; Marked relief of symptoms; Pain is decreased; em RASS: Alert and Calm (0) 20:44 Drug: Pepcid 20 mg Route: IVP; Site: left antecubital; ea 22:07 Follow up: Response: No adverse reaction 20:45 Drug: Flagyl 500 mg Volume: 100 ml; Route: IVPB; Rate: 200 ml/hr; Infused Over: 30 ea mins; Site: left antecubital; 21:34 Follow up: Response: No adverse reaction; IV Status: Completed infusion 21:04 Drug: NS 0.9% 1000 ml Route: IV; Rate: 1 bolus; Site: left antecubital; 21:35 Follow up: Response: No adverse reaction; IV Status: Completed infusion 21:15 Drug: levofloxacin 750 mg Volume: 150 ml; Route: IVPB; Infused Over: 90 mins; Site: left antecubital; 22:07 Follow up: Response: No adverse reaction; IV Status: Completed infusion 21:34 Drug: NS 0.9% with KCl 20 mEq/L 1000 ml Route: IV; Rate: 125 ml/hr; Site: left antecubital; 22:48 Follow up: Response: No adverse reaction; IV Status: Infusion continued upon admission 22:48 Drug: Lovenox 100 mg Route: Sub-Q; Site: left lower abdomen; 23:30 Follow up: Response: No adverse reaction 22:48 Drug: vancoMYCIN 1 grams Route: IVPB; Infused Over: 2 hrs; Site: left antecubital; 23:29 Follow up: Response: No adverse reaction; IV Status: Infusion continued upon admission Outcome: 20:51 Decision to Hospitalize by Provider. conrado 23:33 Admitted to Med/surg accompanied by tech, via wheelchair, room 223, with chart, Report wh called to Yeni Malin RN 23:33 Condition: stable 23:33 Instructed on the need for admit. 23:34 Patient left the ED. Signatures: Dispatcher [employer] Peter Nino MD MD cha Rivera, [place] mr Vee, Alhaji, RN RN Hola Díaz MD MD rn Smirch, Shelby, RN RN ss Antunez, Elena, RN RN ea Habalo, Winsy wh Pisarski, Jacob jp3 Jameson Hayden RN RN ll1
--- NOTE | 2020-09-20 20:52 | EDPHYS ---
Physician Documentation [facility] Name: Alcides Werner Age: 55 yrs Sex: Male : 1965 Arrival Date: 09/20/2020 Time: 14:05 Bed 18 Private MD: ED Physician Peter Jacques HPI: 09/20 18:37 This 55 yrs old Male presents to ER via EMS with complaints of Abdominal Pain.rn 18:37 The patient presents with abdominal pain in the lower abdomen. rn 18:38 Onset: The symptoms/episode began/occurred 1 week(s) ago. The symptoms do not radiate. rn Associated signs and symptoms: Pertinent positives: anorexia, diarrhea, Pertinent negatives: blood in stools, chest pain, fever, shortness of breath. The symptoms are described as crampy. Modifying factors: The symptoms are alleviated by nothing, the symptoms are aggravated by touching the area. Severity of pain: At its worst the pain was mild in the emergency department the pain is unchanged. The patient has not experienced similar symptoms in the past. The patient has been recently seen by a physician:. Reports lower abd pain for 10 day, just had lap manuel by Dr. Wharton 10 days ago, reports pain since, but no fever/vomiting. + mild diarrhea. No trauma.. Historical: - Allergies: 14:11 No Known Allergies; ll1 - PMHx: 14:11 Diabetes - NIDDM; Hypertension; ll1 - PSHx: 14:11 Cholecystectomy; ll1 - Immunization history:: Flu vaccine is up to date. - Social history:: Smoking status: Patient reports the use of cigarette tobacco products, smokes one pack cigarettes per day. - Family history:: not pertinent. - Hospitalizations: : No recent hospitalization is reported. ROS: 18:38 Constitutional: Negative for fever, chills, and weight loss, Eyes: Negative for injury, rn pain, redness, and discharge, Neck: Negative for injury, pain, and swelling, Cardiovascular: Negative for chest pain, palpitations, and edema, Respiratory: Negative for shortness of breath, cough, wheezing, and pleuritic chest pain, Abdomen/GI: + lower abd pain and diarrhea Back: Negative for injury and pain, MS/Extremity: Negative for injury and deformity, Skin: Negative for injury, rash, and discoloration, Neuro: Negative for headache, weakness, numbness, tingling, and seizure. Exam: 18:38 Constitutional: Overweight male, no acute distress Head/Face: Normocephalic, rn atraumatic. ENT: dry MM Cardiovascular: Regular rate and rhythm. No pulse deficits. Respiratory: No increased work of breathing, no retractions or nasal flaring. Abdomen/GI: soft, + suprapubic tenderness, no rebound Skin: Warm, dry MS/ Extremity: Pulses equal, no cyanosis. Neuro: Awake and alert, GCS 15 Vital Signs: 14:12 BP 171 / 95; Pulse 82; Resp 20; Temp 97.5; Pulse Ox 100% ; Weight 127.01 kg; Height 5 ll1 ft. 7 in. (170.18 cm); Pain 8/10; 17:45 BP 117 / 68; Pulse 81; Resp 18; Pulse Ox 98% on R/A; em 19:15 BP 126 / 75; Pulse 78; Resp 18; Pulse Ox 98% on R/A; wh 20:30 BP 139 / 99; Pulse 83; Resp 18; Pulse Ox 99% on R/A; wh 22:00 BP 150 / 94; Pulse 86; Resp 18; Pulse Ox 99% on R/A; wh 23:15 BP 133 / 80; Pulse 70; Resp 18; Pulse Ox 100% on R/A; wh 14:12 Body Mass Index 43.85 (127.01 kg, 170.18 cm) ll1 MDM: 16:46 Patient medically screened. rn 19:01 Transition of care: After a detail discussion of the patient's case, care is rn transferred to Peter Jacques MD. 09/20 16:54 Order name: Basic Metabolic Panel; Complete Time: 18:55 rn 09/20 16:54 Order name: CBC with Diff; Complete Time: 21:30 rn 09/20 16:54 Order name: Hepatic Function; Complete Time: 18:55 rn 09/20 16:54 Order name: Lipase; Complete Time: 18:55 rn 09/20 18:13 Order name: Manual Differential; Complete Time: 21:30 EDMS 09/20 19:24 Order name: Urine Dipstick--Ancillary (enter results); Complete Time: 19:59 mt 09/20 20:00 Order name: Magnesium; Complete Time: 21:30 [facility]rado 09/20 20:00 Order name: NT PRO-BNP; Complete Time: 21:30 [facility] 09/20 20:00 Order name: PT-INR; Complete Time: 21:30 [facility] 09/20 20:00 Order name: Troponin (emerg Dept Use Only); Complete Time: 21:30 [facility] 09/20 20:02 Order name: COVID-19 [facility] 09/20 21:59 Order name: Sed Rate [facility] 09/20 21:59 Order name: Blood Culture Adult (2) [facility] 09/20 21:59 Order name: Lactate [facility] 09/20 16:54 Order name: IV Saline Lock; Complete Time: 17:47 09/20 16:54 Order name: Labs collected and sent; Complete Time: 17:47 09/20 16:54 Order name: CT Abd/Pelvis - IV Contrast Only; Complete Time: 19:59 09/20 19:03 Order name: Urine Dipstick-Ancillary (obtain specimen); Complete Time: 19:04 20:00 Order name: XRAY Chest (1 view); Complete Time: 20:32 [facility] 09/20 20:00 Order name: EKG; Complete Time: 20:01 [facility] 09/20 20:00 Order name: Cardiac monitoring; Complete Time: 20:33 [facility] 09/20 20:00 Order name: EKG - Nurse/Tech; Complete Time: 20:33 [facility] 09/20 20:00 Order name: O2 Per Protocol; Complete Time: 20:33 [facility] 09/20 20:00 Order name: O2 Sat Monitoring; Complete Time: 20:33 [facility] Administered Medications: 07:47 Drug: Zofran (Ondansetron) 4 mg Route: IVP; Site: left antecubital; em 18:54 Follow up: Response: No adverse reaction em 17:45 Drug: morphine 4 mg Route: IVP; Site: left antecubital; em 18:54 Follow up: Response: No adverse reaction; Marked relief of symptoms; Pain is decreased; em RASS: Alert and Calm (0) 20:44 Drug: Pepcid 20 mg Route: IVP; Site: left antecubital; ea 22:07 Follow up: Response: No adverse reaction wh 20:45 Drug: Flagyl 500 mg Volume: 100 ml; Route: IVPB; Rate: 200 ml/hr; Infused Over: 30 ea mins; Site: left antecubital; 21:34 Follow up: Response: No adverse reaction; IV Status: Completed infusion 21:04 Drug: NS 0.9% 1000 ml Route: IV; Rate: 1 bolus; Site: left antecubital; 21:35 Follow up: Response: No adverse reaction; IV Status: Completed infusion 21:15 Drug: levofloxacin 750 mg Volume: 150 ml; Route: IVPB; Infused Over: 90 mins; Site: left antecubital; 22:07 Follow up: Response: No adverse reaction; IV Status: Completed infusion 21:34 Drug: NS 0.9% with KCl 20 mEq/L 1000 ml Route: IV; Rate: 125 ml/hr; Site: left antecubital; 22:48 Follow up: Response: No adverse reaction; IV Status: Infusion continued upon admission 22:48 Drug: Lovenox 100 mg Route: Sub-Q; Site: left lower abdomen; 23:30 Follow up: Response: No adverse reaction 22:48 Drug: vancoMYCIN 1 grams Route: IVPB; Infused Over: 2 hrs; Site: left antecubital; 23:29 Follow up: Response: No adverse reaction; IV Status: Infusion continued upon admission Disposition: 09/20/20 20:51 Hospitalization ordered by Ally Montoya for Inpatient Admission. Preliminary diagnosis are Abdominal tenderness - sp laparoscopic manuel, Elevated white blood cell count, Infarction of spleen, Ischemia and infarction of kidney, Type 2 diabetes mellitus. - Bed requested for Telemetry/MedSurg (Inpatient). - Status is Inpatient Admission. - Condition is Fair. - Problem is new. - Symptoms have improved. Signatures: Dispatcher [employer] EDRI Peter Jacques MD MD cha Munoz, Edgar, RN Hola Carroll MD MD rn Garcia, Cindy, RN RN Abby Blunt RN RN ea Habalo, Winsy Jameson Hayden RN RN ll1 Corrections: (The following items were deleted from the chart) 22:51 20:51 Hospitalization Ordered by Ally Montoya MD for Inpatient Admission. Preliminary cg diagnosis is Abdominal tenderness - sp laparoscopic manuel; Elevated white blood cell count; Infarction of spleen; Ischemia and infarction of kidney; Type 2 diabetes mellitus. Bed requested for Telemetry/MedSurg (Inpatient). Status is Inpatient Admission. Condition is Fair. Problem is new. Symptoms have improved. conrado 23:34 22:51 09/20/2020 20:51 Hospitalization Ordered by Ally Montoya MD for Inpatient Admission. Preliminary diagnosis is Abdominal tenderness - sp laparoscopic manuel; Elevated white blood cell count; Infarction of spleen; Ischemia and infarction of kidney; Type 2 diabetes mellitus. Bed requested for Telemetry/MedSurg (Inpatient). Status is Inpatient Admission. Condition is Fair. Problem is new. Symptoms have improved. cg
[2020-09-20 21:09] LABS: Blood Morphology Comment NOT SEEN (NOT SEEN); Platelet Estimate INCR
[2020-09-20] MEDS ORDERED: NA CHLORIDE 0.9% 1,000 ML ONE (21:11)
[2020-09-20] MEDS ORDERED: NS KCL 20MEQ 1,000 ML IV ONE (21:11)
[2020-09-20 21:16] LABS: NT PRO-BNP 219 pg/mL (<125); Troponin (Emerg Dept Use Only) < 0.02 ng/mL (0.0-0.045)
[2020-09-20 21:17] LABS: Magnesium 2.5 mg/dL (1.8-2.4); Protime INR 1.36
[2020-09-20] MEDS ORDERED: NA CHLORIDE 0.9% 250 ML ONE (22:48)
[2020-09-20] MEDS ORDERED: ENOXAPARIN 100 MG/ML SYR SQ ONE (22:48)
[2020-09-20] MEDS ORDERED: VANCOMYCIN 1 GM/VIAL ONE (22:48)
--- NOTE | 2020-09-20 23:19 | P.HP ---
Certification for Inpatient Patient admitted to: Inpatient With expected LOS: >2 Midnights Patient will require the following post-hospital care: None Practitioner: I am a practitioner with admitting privileges, knowledge of patient current condition, hospital course, and medical plan of care. Services: Services provided to patient in accordance with Admission requirements found in Title 42 Section 412.3 of the Code of Federal Regulations <TrescarinPreet - Last Filed: 09/20/20 23:14> Patient History Date of Service: 09/20/20 Reason for admission: Splenic/renal infarct History of Present Illness: 55-year-old male with history of diabetes mellitus type 2 and hypertension presents emergency department for lower abdominal pain. Patient had his gallbladder out with Dr. Wharton 9 days ago, had gangrenous cholecystitis. Patient was evaluated in the emergency department found to have elevated white blood cell count 29201, left shift. CT scan was performed which revealed multiple low-density splenic lesions developed since comparative study most suggestive of splenic infarcts as well as areas of diminished density within the kidneys bilaterally, greater on the left, indicating areas of renal infarct or pyelonephritis. Also small amount of free fluid along the left hepatic and she is seen which could be related to small blood products or bile. Case was discussed with general surgeon in the emergency department, thinks that the change in the left hepatic and sharp likely postoperative and not concerning . No explanation for splenic and renal infarcts, patient does not have atrial fibrillation, denies drug use. Relatively poor dentation. Abdomen is relatively benign on exam, very mild tenderness in the lower abdomen. Case was discussed with hospitalist attending, patient be admitted for further evaluation and management as well as to rule out endocarditis. - Past Medical/Surgical History Diabetic: No -: Hypertension -: DM. 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 - Family History Father -: Heart disease, Hypertension Mother -: Stroke - Social History Smoking Status: Current every day smoker Counseled patient to stop smoking for: less than 10 minutes Alcohol use: Yes CD- Drugs: No Caffeine use: Yes Place of Residence: Home <Preet Valles - Last Filed: 09/20/20 23:14> Date of Service: 09/21/20 <Ally Montoya - Last Filed: 09/23/20 10:09> Allergies No Known Allergies Allergy (Verified 09/21/20 00:05) Home Medications: Buspirone HCl [Buspar] 10 mg PO TID 06/24/20 Carvedilol [Coreg] 12.5 mg PO BID 06/24/20 Lisinopril [Zestril] 40 mg PO DAILY 06/24/20 Review of Systems 10-point ROS is otherwise unremarkable Gastrointestinal: Nausea, Abdominal Pain <Preet Valles - Last Filed: 09/20/20 23:14> Physical Examination - Physical Exam General: Alert, In no apparent distress HEENT: Atraumatic, PERRLA, Mucous membr. moist/pink Neck: Supple, 2+ carotid pulse no bruit, No LAD Respiratory: Clear to auscultation bilaterally, Normal air movement Cardiovascular: Regular rate/rhythm, Normal S1 S2 Gastrointestinal: Normal bowel sounds, Tenderness (Mild lower abdominal tenderness) Musculoskeletal: No tenderness Integumentary: No rashes Neurological: Normal gait, Normal speech, Normal strength at 5/5 x4 extr, Normal tone, Normal affect Lymphatics: No axilla or inguinal lymphadenopathy - Studies Laboratory Data (last 24 hrs) 09/20/20 20:38: PT 15.9 H, INR 1.36 09/20/20 20:38: Magnesium 2.5 H D 09/20/20 17:41: WBC 24.0 H* D, Hgb 15.2, Hct 44.3, Plt Count 695 H D 09/20/20 17:41: Sodium 140, Potassium 3.4 L, BUN 13, Creatinine 1.27, Glucose 132 H, Total Bilirubin 0.4, AST 54 H, ALT 77, Alkaline Phosphatase 156 H, Lipase 231 <Preet Valles - Last Filed: 09/20/20 23:14> Assessment and Plan - Plan Assessment Abdominal pain and leukocytosis Splenic/renal infarcts Diabetes mellitus type 2 Hypertension Plan Abdominal pain and leukocytosis: General surgery consult in place, continue broad-spectrum antibiotic, p.r.n. pain medications. Clear liquid diet at this time advance as tolerated. DVT prophylaxis Lovenox 40 mg subcutaneous once daily. Serial abdominal exams. Splenic/renal infarcts: Given full dose Lovenox in the emergency department. Will obtain echocardiogram, blood cultures, sed rate. Continue with addition of vancomycin for MRSA coverage in the setting of endocarditis. Monitor on telemetry. Diabetes mellitus type 2: A.c. HS Accu-Cheks, sliding scale insulin therapy. Hypertension: Obtain and continue home medications. Discharge Plan: Home Plan to discharge in: Greater than 2 days - Advance Directives Does patient have a Living Will: No Does patient have a Durable POA for Healthcare: No - Code Status/Comfort Care Code Status Assessed: Yes (Full code) Critical Care: No Time Spent Managing Pts Care (In Minutes): 55 <Preet Valles - Last Filed: 09/20/20 23:14> Date of Service: 09/21/20 Agree with plan of care as mentioned above. Patient with possible septic embolis. Workup pending. <Ally Montoya - Last Filed: 09/23/20 10:09>
[2020-09-20] MEDS ORDERED: ONDANSETRON 4 MG/2 ML VIAL IV PRN (23:20)
[2020-09-20] MEDS ORDERED: MORPHINE 2 MG/ML SYR IV PRN (23:20)
[2020-09-20] MEDS ORDERED: ACETAMINOPHEN 500 MG TAB PO PRN (23:20)
[2020-09-20] MEDS ORDERED: VANCOMYCIN/NS 1 gm 1 GM/250 ML BAG IVPB SCH (23:20)
[2020-09-21] MEDS ORDERED: POTASSIUM CL SA 10 MEQ TAB PO ONE ×2 (00:13→05:19)
[2020-09-21] MEDS: NA CHLORIDE 0.9% 1,000 ML IV SCH ×3 (00:29→16:53)
[2020-09-21] MEDS ORDERED: VANCOMYCIN/NS 1 gm 1 GM/250 ML BAG IVPB ONE (02:30)
[2020-09-21 02:43] VITALS: BMI 38.7
[2020-09-21] MEDS ORDERED: NA CHLORIDE 0.9% 250 ML ONE (02:48)
[2020-09-21] MEDS ORDERED: VANCOMYCIN 1 GM/VIAL ONE (02:48)
[2020-09-21 03:19] LABS: Absolute Lymphocytes (CBC) 1.7 K/uL (0.7-4.9); Basophils % 0.4 % (0-1.3); Hematocrit 37.5 % (39.6-49.0); Lymphocytes % 10.4 % (15.3-44.8); MPV 7.7 fL (7.6-11.3); RBC Red Blood Cell Count 3.85 M/uL (4.33-5.43)
[2020-09-21 03:41] LABS: Albumin 2.3 g/dL (3.4-5.0); Bilirubin Total 0.4 mg/dL (0.2-1.0); Potassium 3.1 mmol/L (3.5-5.1); Protein, Total 7.3 g/dL (6.4-8.2); Thyroid Stimulating Hormone 1.07 uIU/mL (0.360-3.740)
[2020-09-21 04:17] LABS: Barbiturates NEGATIVE (NEGATIVE); Benzodiazepines NEGATIVE (NEGATIVE); Cocaine NEGATIVE (NEGATIVE); METHAMPHETAM NEGATIVE (NEGATIVE); Methadone NEGATIVE (NEGATIVE); Opiates POSITIVE (NEGATIVE); Phencyclidine NEGATIVE (NEGATIVE); THC Cannibis NEGATIVE (NEGATIVE)
[2020-09-21] MEDS: METRONIDAZOLE 500mg IVPB 500 MG/100 ML BAG IV SCH ×3 (05:14→20:37)
--- NOTE | 2020-09-21 05:59 | EKG ---
Test Date: 2020-09-20 Test Time: 20:15:44 Product Analyst: TEJAL MEASUREMENT RESULTS: Intervals: Rate: 79 MI: 146 QRSD: 84 QT: 434 QTc: 497 [place]: P: 68 MI: 146 QRS: 64 T: -28 INTERPRETIVE STATEMENTS: Normal sinus rhythm with sinus arrhythmia ST & T wave abnormality, consider anterior ischemia Prolonged QT Abnormal ECG Compared to ECG 09/10/2020 04:36:25 ST (T wave) deviation now present Possible ischemia now present Prolonged QT interval now present Sinus tachycardia no longer present Ventricular premature complex(es) no longer present Myocardial infarct finding no longer present Electronically Signed On 09-21-20 05:58:59 ENGINEER TECHNICAL STAFF by Soham Angeles
[2020-09-21] MEDS ORDERED: INFLUENZA VACCINE (for 3y+) 0.5 ML DOSE IMVAC ONE (06:00)
[2020-09-21] MEDS: INSULIN -REGULAR HUMAN 50 UNIT/0.5 ML ML SQ SCH ×4 (07:30→20:39)
[2020-09-21] MEDS: carvediloL 12.5 MG TAB PO SCH ×2 (09:19→16:51)
[2020-09-21] MEDS: BUSPIRONE HCL 5 MG TABLET PO SCH ×3 (09:20→20:38)
[2020-09-21] MEDS: ENOXAPARIN 40 MG/0.4 ML SQ SCH (09:20)
--- NOTE | 2020-09-21 11:12 | CON ---
Date of Consultation: 09/21/2020 Diagnoses: Splenic infarction, history of morbid obesity, history of renal insufficiency, history of gangrenous gallbladder. History Of Present Illness: This is the case of a 55-year-old patient, known by us since about more than a week ago. He has to undergo emergent surgery due to a severe gallbladder disease and gangreno us. The patient did postoperative, but eventually kept in the hospital for a few days. We had a DIANNE drain that was just removed a few days ago. We left it there for a week. When the DIANNE drain was hal peter, it just shows clear fluid, no bile and no blood over the area of the hepatic region. He has bee n doing okay. Yesterday, he fell, not discrete this before with some lower abdominal pain and also s ome lower back pain when he called the office to be seen in the office, but he could not make it to t he office, so he went to the ER and they called me about the patient's status. Like we mentioned star chapis, his DIANNE drain was left in the hepatic area to make sure that they know we get all the bacteria fr om that region, but after a week, it was removed uneventfully. So, we have no evidence of bile leak at this moment, but we see some new infarcts over the area of the spleen. At that moment, he was sep tic on the previous admission and required some specific care including IV antibiotics. 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 He denies shortness of breath, any chest pain at this moment. Review of Systems: Ten points otherwise unremarkable including also no melena, no hematochezia, no change in bowel habit s. No jaundice. Past Medical History: Please see my previous consult about a week ago. Past Surgical History: Please see my previous consult about a week ago. Allergies: PLEASE SEE MY PREVIOUS CONSULT ABOUT A WEEK AGO. Family History: Please see my previous consult about a week ago. Physical Examination: General: The patient is awake, alert, no distress. HEENT: Pupils equal and reactive. Anicteric. Neck: Supple. Chest: Clear. Abdomen: Soft and depressible. Lupe intact that will be removed today. No infection. No guardi ng or rebound. Extremities: Good capillary refill. Laboratory Data: Blood work was reviewed, showed some leukocytosis. CAT scan was also reviewed, foreign wed some splenic infarct, some postoperative changes on the right upper quadrant inspected. DIANNE was t here and never showed any bile leak or anything like that. So, this is just postoperative fluid in t hat region suspected. The rest of intestines with no evidence of inflammation. Kidneys show also so me densities. I will let the medical doctors just define that. Plan: The plan from the surgical standpoint, we can give the diet. The medical service is evaluatin g the patient and also I understand Cardiology also to see if there is any anticoagulation have to be given for his infarct. Also, the kidney specially will be consulted by the primary doctor. From th e surgical standpoint, the patient is doing good right now, so we are going to advance the diet. ANNIKA/TARA Voice ID: [id number] Report ID: [id number]
--- NOTE | 2020-09-21 12:45 | CON ---
Date of Consultation: 09/21/2020 Reason For Consultation: Possible endocarditis with splenic and renal infarcts. History Of Present Illness: Mr. Curiel is a 55-year-old male. He was in the hospital about a we ek ago for gangrenous gallbladder status post emergency cholecystectomy by Dr. Wharton. The patient has done well from that standpoint, but came back with abdominal pain and was found on workup to hav e splenic and renal infarcts. There was a concern for endocarditis. Echocardiogram which was done w sheri I was seeing the patient was perfectly normal without any evidence of vegetation. Normal ejecti on fraction, no effusion, normal wall motion. Allergies: NONE. Past Medical History: Includes diabetes, hypertension, history of dyslipidemia, and obesity. Review of Systems: Negative. Social History: Negative. Family History: Negative. Medications: Listed by admitting physicians. Physical Examination: Vital Signs: Stable, afebrile. HEENT: Negative. Neck: Supple with no bruit. Chest: Clear. Cardiac: Normal. Abdomen: Obese, but benign. Extremities: Revealed no clubbing, cyanosis, or edema. Diagnostic Data: From a cardiac standpoint, his EKG was normal. Troponin was normal. Echocardiogra m was normal. Chest x-ray was normal. Impression And Plan: Possible splenic and renal infarcts, unknown etiology. Endocarditis will of th e possibility despite a normal echo. I would treat him with IV antibiotics as he is going to decide decision on the length of therapy, should be decided by primary care physician and Infectious Disease consultation. No further cardiac workup from my standpoint. His other problems include diabetes, h ypertension, dyslipidemia, obesity, and status post gallbladder removal are stable. It would be reas onable that the splenic and renal infarcts are documented for sure that he should wear an event monit or down the road to rule out atrial fibrillation. We will continue monitoring for now. PHIL/TARA Voice ID: [id number] Report ID: [id number]
[2020-09-21] MEDS: VANCOMYCIN 2 GM in NA CHLORIDE 0.9% 500 ML IVPB SCH (18:00)
[2020-09-21] MEDS: Levofloxacin500mg IV 500 MG/100 ML BAG IV SCH (20:38)
[2020-09-21] MEDS: ENSURE HIGH PROTEIN 237 ML CAN PO SCH (20:39)
[2020-09-22 04:45] LABS: Absolute Lymphocytes (CBC) 1.8 K/uL (0.7-4.9); Basophils % 0.6 % (0-1.3); Hematocrit 33.2 % (39.6-49.0); Lymphocytes % 14.2 % (15.3-44.8); MPV 7.9 fL (7.6-11.3); RBC Red Blood Cell Count 3.44 M/uL (4.33-5.43)
[2020-09-22] MEDS: METRONIDAZOLE 500mg IVPB 500 MG/100 ML BAG IV SCH ×4 (05:05→23:40)
[2020-09-22 05:06] LABS: Albumin 2.2 g/dL (3.4-5.0); Bilirubin Total 0.2 mg/dL (0.2-1.0); Magnesium 1.9 mg/dL (1.8-2.4); Protein, Total 6.2 g/dL (6.4-8.2)
[2020-09-22 05:07] LABS: Potassium 2.9 mmol/L (3.5-5.1)
[2020-09-22] MEDS: NA CHLORIDE 0.9% 1,000 ML IV SCH ×2 (05:07→09:48)
[2020-09-22] MEDS: KCL 20 MEQ/100 mL IVPB 20 MEQ/100 ML BAG IV SCH ×2 (05:49→07:27)
[2020-09-22] MEDS: INSULIN -REGULAR HUMAN 50 UNIT/0.5 ML ML SQ SCH ×4 (07:30→21:00)
--- NOTE | 2020-09-22 07:32 | ECHO ---
HEIGHT: 5 ft 7 in WEIGHT: 246 lb 0 oz DATE OF STUDY: 09/21/[address]: Preet Valles NP 2-DIMENSIONAL: YES M.MODE: YES DOPPLER: YES COLOR FLOW: YES TDS: YES PORTABLE: DEFINITY: BUBBLE STUDY: DIAGNOSIS: RULE OUT PERICARDITIS CARDIAC HISTORY: CATHERIZATION: NO SURGERY: NO PROSTHETIC VALVE: NO PACEMAKER: NO MEASUREMENTS (cm) DIASTOLIC (NORMALS) SYSTOLIC (NORMALS) IVSd 1.2 (0.6-1.2) LA Diam 3.1 (1.9-4.0) LVEF 50% LVIDd 5.7 (3.5-5.7) LVIDs 4.3 (2.0-3.5) %FS 26% LVPWd 1.2 (0.6-1.2) Ao Diam 3.2 (2.0-3.7) 2 DIMENSIONAL ASSESSMENT: RIGHT ATRIUM: NORMAL LEFT ATRIUM: NORMAL RIGHT VENTRICLE: NORMAL LEFT VENTRICLE: NORMAL TRICUSPID VALVE: NORMAL MITRAL VALVE: NORMAL PULMONIC VALVE: NORMAL AORTIC VALVE: NORMAL PERICARDIAL EFFUSION: NONE AORTIC ROOT: NORMAL LEFT VENTRICULAR WALL MOTION: DOPPLER/COLOR FLOW: NORMAL COMMENTS: TECHNICALLY DIFFICULT STUDY. NORMAL LEFT VENTRICULAR SIZE AND FUNCTION. NO WALL MOTION ABNORMALITY. NO VEGETATION OR THROMBUS. TECHNOLOGIST: LIBRA LEWIS
[2020-09-22] MEDS ORDERED: POTASSIUM 25 MEQ EFFERV TAB PO ONE (08:00)
[2020-09-22] MEDS: carvediloL 12.5 MG TAB PO SCH ×2 (08:42→16:45)
[2020-09-22] MEDS: ENOXAPARIN 40 MG/0.4 ML SQ SCH (08:43)
[2020-09-22] MEDS: BUSPIRONE HCL 5 MG TABLET PO SCH ×3 (08:43→21:56)
[2020-09-22] MEDS: ENSURE HIGH PROTEIN 237 ML CAN PO SCH ×2 (08:44→21:55)
[2020-09-22] MEDS ORDERED: ENOXAPARIN 100 MG/ML SYR SQ ONE (09:46)
[2020-09-22] MEDS ORDERED: ENOXAPARIN 60 MG/0.6 ML SQ ONE (09:48)
--- NOTE | 2020-09-22 11:37 | CON ---
History Of Present Illness: The patient is a 55-year-old male. I was consulted for evaluation of en docarditis as the patient is coming in with lower abdominal pain. The patient was found to have sple lenin and renal infarcts. The patient has significant past medical history of diabetes mellitus, hyper tension. Had a gallbladder surgery and gallbladder removed for infarct also. The patient's CT abdom en showed that he had bilateral kidney and splenic infarcts. Pain is much better. The patient is dillon pposed to get a CT angiogram today, waiting for IV line establishment. Denies any headache, nausea, vomiting, chest pain, abdominal pain, constipation, or diarrhea. Past Medical History: As per HPI. Social History: Tobacco 1 pack, a 40-year history. Social drinking. 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 Medications: Include Levaquin and vancomycin. See MAR for other medications. Allergies: NO KNOWN DRUG ALLERGIES. Review of Systems: A 10-point review was performed. Physical Examination: General: This is a 55-year-old male, sitting in bed, not in any acute cardiopulmonary distress. Vital Signs: Temperature 97, pulse 67, respirations 20, blood pressure 132/64. HEENT: Unremarkable. Neck: Supple. Lungs: Clear to auscultation. Heart: S1, S2. Regular. Abdomen: Soft. Bowel sounds present. Extremities: Trace edema. Laboratory Data: Shows WBC 13,000 down from 24,000, hemoglobin 11.6, platelets are 547. Chemistry s hows sodium 141, potassium 2.9, chloride 109, bicarb 26, BUN 9, creatinine 1, glucose 96. Albumin le katty is 2.2. Blood cultures are negative to date from 09/20. Chest x-ray done on 09/20 shows the pat ient has no acute infiltrates. A CT abdomen and pelvis done on 09/20 shows the patient has multiple low-density splenic lesions have developed since comparative study, more suggestive of splenic infarc ts, area of diminished density within the kidney bilaterally greater on the left could indicate areas of renal infarcts or pyelonephritis. Small amount of free fluid along the left hepatic edge is seen . This may be related to a small blood product of bile. Assessment And Plan: This is a 55-year-old male with significant history of diabetes mellitus and re cent cholecystectomy, coming in with splenic and renal infarcts, most likely secondary to plaque embo li. At this point, I do not consider this as an infectious etiology. The patient does have infarcts and leukocytosis. We will cover him with empiric antibiotic till the culture results are finalized. Continue current antibiotic, total of 2 weeks. Monitor for signs of any infection and fever. The patient also has protein-calorie malnourishment and morbid obesity. Continue supportive care. Thank you Dr. Montoya for consult. NF/MODL Voice ID: [id number] Report ID: [id number]
[2020-09-22] MEDS: VANCOMYCIN 2 GM in NA CHLORIDE 0.9% 500 ML IVPB SCH ×2 (12:00→15:21)
--- NOTE | 2020-09-22 13:07 | PN ---
Date of Progress Note: 09/22/2020 Diagnosis: Splenic infarction and possibly bacterial endocarditis. History Of Present Illness: This is the case of a 55-year-old patient, known by us in the past due t o a gallbladder gangrene and severe cholecystitis. Postoperatively, the patient did well, kept on an tibiotics for several more days. DIANNE drain left there for almost a week, clear with no bile leak, and no purulent discharge. DIANNE venture was removed. Several days later, he was not feeling 100%, so he comes to us and diagnosed with possible bacterial endocarditis with some splenic areas of infarction and the working diagnosis of endocarditis was developed since we seen this patient more th an a week ago and they consulted us for evaluation of our part. Right now, the patient is tolerating diet. Passing flatus. Abdomen is soft and depressible, benign. Laboratory Data: WBC count of 13.1. Platelets of 547. INR is 1.36. Potassium is replaced by the [facility]. UA; nitrite negative. Plan: Continue service by medical doctor. Continue diet. HM/MODL Voice ID: [id number] Report ID: [id number]
[2020-09-22] MEDS: Levofloxacin500mg IV 500 MG/100 ML BAG IV SCH (21:55)
[2020-09-22] MEDS: Enoxaparin 120 MG/0.8 ML SYR SQ SCH (21:56)
[2020-09-23 05:55] LABS: Absolute Lymphocytes (CBC) 2.4 K/uL (0.7-4.9); Hematocrit 35.3 % (39.6-49.0); Lymphocytes % 21.1 % (15.3-44.8); MPV 8.2 fL (7.6-11.3); RBC Red Blood Cell Count 3.66 M/uL (4.33-5.43)
[2020-09-23 05:59] LABS: Albumin 2.3 g/dL (3.4-5.0); Bilirubin Total 0.3 mg/dL (0.2-1.0); Magnesium 1.8 mg/dL (1.8-2.4); Potassium 3.4 mmol/L (3.5-5.1); Protein, Total 6.7 g/dL (6.4-8.2)
[2020-09-23] MEDS: METRONIDAZOLE 500mg IVPB 500 MG/100 ML BAG IV SCH ×3 (06:09→22:05)
[2020-09-23] MEDS: INSULIN -REGULAR HUMAN 50 UNIT/0.5 ML ML SQ SCH ×4 (07:30→21:00)
[2020-09-23] MEDS ORDERED: MAGNESIUM SULFATE 1 gm IVPB 1 GM/100 ML BAG IV ONE (09:00)
[2020-09-23] MEDS ORDERED: POTASSIUM CL SA 10 MEQ TAB PO ONE (09:00)
[2020-09-23 09:37] LABS: Blood Morphology Comment NOT SEEN (NOT SEEN); Platelet Estimate INCR
[2020-09-23] MEDS: carvediloL 12.5 MG TAB PO SCH ×2 (09:57→16:10)
[2020-09-23] MEDS: BUSPIRONE HCL 5 MG TABLET PO SCH ×3 (09:58→20:23)
[2020-09-23] MEDS: VANCOMYCIN 2 GM in NA CHLORIDE 0.9% 500 ML IVPB SCH (09:59)
[2020-09-23] MEDS: Enoxaparin 120 MG/0.8 ML SYR SQ SCH ×2 (09:59→20:23)
[2020-09-23] MEDS: ENSURE HIGH PROTEIN 237 ML CAN PO SCH ×2 (10:04→20:23)
--- NOTE | 2020-09-23 10:12 | P.PN ---
Subjective Date of Service: 09/21/20 Patient feeling better today. White count is improved. Workup pending for questionable septic emboli. Echocardiogram is pending today. Review of Systems 10-point ROS is otherwise unremarkable Physical Examination - Vital Signs Temperature: 97.1 F Blood Pressure: 163/72 Pulse: 56 Respirations: 20 Pulse Ox (%): 97 - Physical Exam General: Alert, In no apparent distress, Oriented x3 Respiratory: Clear to auscultation bilaterally, Normal air movement Cardiovascular: Regular rate/rhythm, Normal S1 S2, No murmurs Gastrointestinal: Normal bowel sounds, Soft and benign, Non-distended, Tenderness (Mildly tender) Musculoskeletal: No clubbing, No swelling, No tenderness Integumentary: No rashes Neurological: Normal speech, Normal tone, Normal affect Lymphatics: No axilla or inguinal lymphadenopathy - Studies Medications List Reviewed: Yes Assessment & Plan - Problems (Diagnosis) (1) Septic embolism Current Visit: Yes Status: Acute (2) Splenic infarct Current Visit: Yes Status: Acute (3) Renal infarct Current Visit: Yes Status: Acute (4) PAD (peripheral artery disease) Current Visit: Yes Status: Acute (5) Status post laparoscopic cholecystectomy Current Visit: Yes Status: Acute (6) Hypertension Current Visit: No Status: Chronic Qualifiers: Hypertension type: essential hypertension Qualified Code(s): I10 - Essential (primary) hypertension (7) Non-insulin dependent type 2 diabetes mellitus Current Visit: No Status: Chronic - Plan Plan: 1. Awaiting echocardiogram result 2. Continue with anti coagulation and antibiotic therapy 3. Pain control 4. Infectious disease consultation 5. Appreciate cardiology consultation 6. Out of bed and ambulate 7. May need to evaluate aorta for atherosclerotic disease Discharge Plan: Home Plan to discharge in: Greater than 2 days - Advance Directives Does patient have a Living Will: No Does patient have a Durable POA for Healthcare: No - Code Status/Comfort Care Code Status Assessed: Yes Code Status: Full Code Critical Care: No Time Spent Managing PTS Care (In Minutes): 35
--- NOTE | 2020-09-23 10:14 | P.PN ---
Subjective Date of Service: 09/23/20 Waiting to get a PICC line placed. Need to get a CT aortogram to evaluate possible etiology of splenic or renal infarct. Once we get this done then we can proceed with CT aortogram. Review of Systems 10-point ROS is otherwise unremarkable Physical Examination - Vital Signs Temperature: 97.1 F Blood Pressure: 163/72 Pulse: 56 Respirations: 20 Pulse Ox (%): 97 - Physical Exam General: Alert, In no apparent distress, Oriented x3 Respiratory: Clear to auscultation bilaterally, Normal air movement Cardiovascular: Regular rate/rhythm, Normal S1 S2, No murmurs Gastrointestinal: Normal bowel sounds, Soft and benign, Non-distended, No tenderness Musculoskeletal: No clubbing, No swelling, No tenderness Integumentary: No rashes Neurological: Sensation intact, Cranial nerves 3-12 intact - Studies Medications List Reviewed: Yes Assessment & Plan - Problems (Diagnosis) (1) Septic embolism Status: Acute (2) Splenic infarct Status: Acute (3) Renal infarct Status: Acute (4) PAD (peripheral artery disease) Status: Acute (5) Status post laparoscopic cholecystectomy Status: Acute (6) Hypertension Status: Chronic Qualifiers: Hypertension type: essential hypertension Qualified Code(s): I10 - Essential (primary) hypertension (7) Non-insulin dependent type 2 diabetes mellitus Status: Chronic - Plan Plan: Continue with plan of care as mentioned below 1. Echocardiogram with no abnormalities 2. Continue with anticoagulation and antibiotic therapy 3. Pain control; patient's pain is controlled. 4. Infectious disease consultation appreciated. Recommend CT scan prior to discharge planning 5. Appreciate cardiology consultation 6. Out of bed and ambulate 7. CT angio of the aorta for further evaluation for embolic event; awaiting to get PICC line placed. 8. GI prophylaxis Discharge Plan: Home Plan to discharge in: Greater than 2 days - Advance Directives Does patient have a Living Will: No Does patient have a Durable POA for Healthcare: No - Code Status/Comfort Care Code Status: Full Code Critical Care: No Time Spent Managing PTS Care (In Minutes): 35
--- NOTE | 2020-09-23 10:14 | P.PN ---
Subjective Date of Service: 09/22/20 Patient continues to do with well with no clinical complaints. CT angio of the aorta pending. Monitor for atherosclerotic disease. Echocardiogram was negative. Blood cultures remain negative. May need to be discharged on anti coagulation and antibiotic therapy. Will discuss with Infectious Disease as mya calderon Review of Systems 10-point ROS is otherwise unremarkable Physical Examination - Vital Signs Temperature: 97.1 F Blood Pressure: 163/72 Pulse: 56 Respirations: 20 Pulse Ox (%): 97 - Physical Exam General: Alert, In no apparent distress, Oriented x3 Respiratory: Clear to auscultation bilaterally, Normal air movement Cardiovascular: Regular rate/rhythm, Normal S1 S2, No murmurs Gastrointestinal: Normal bowel sounds, Soft and benign, Non-distended, No tenderness Musculoskeletal: No clubbing, No swelling, No tenderness Integumentary: No rashes Neurological: Sensation intact, Cranial nerves 3-12 intact - Studies Medications List Reviewed: Yes Assessment & Plan - Problems (Diagnosis) (1) Septic embolism Current Visit: Yes Status: Acute (2) Splenic infarct Current Visit: Yes Status: Acute (3) Renal infarct Current Visit: Yes Status: Acute (4) PAD (peripheral artery disease) Current Visit: Yes Status: Acute (5) Status post laparoscopic cholecystectomy Current Visit: Yes Status: Acute (6) Hypertension Current Visit: No Status: Chronic Qualifiers: Hypertension type: essential hypertension Qualified Code(s): I10 - Essential (primary) hypertension (7) Non-insulin dependent type 2 diabetes mellitus Current Visit: No Status: Chronic - Plan Plan: Continue with plan of care as mentioned below 1. Echocardiogram with no abnormalities 2. Continue with anticoagulation and antibiotic therapy 3. Pain control 4. Infectious disease consultation appreciated 5. Appreciate cardiology consultation 6. Out of bed and ambulate 7. CT angio of the aorta for further evaluation for embolic event 8. GI prophylaxis Discharge Plan: Home Plan to discharge in: Greater than 2 days - Advance Directives Does patient have a Living Will: No Does patient have a Durable POA for Healthcare: No - Code Status/Comfort Care Code Status: Full Code Critical Care: No Time Spent Managing PTS Care (In Minutes): 35
--- NOTE | 2020-09-23 18:05 | PN ---
Subjective: The patient is lying in bed. No new acute event. Chart reviewed. The patient is suppo sed to get his CT angiogram to look for any sign of infections or abscess. The patient is awaiting I V line placement. Objective: Vital Signs: Temperature 97, pulse 63, respirations 18, blood pressure 123/69. Lungs: Clear to auscultation. Heart: S1, S2. Regular. Abdomen: Soft. Bowel sounds present. Extremities: No edema. Laboratory Data: Shows WBC 11.2, hemoglobin 12.3, platelets are 567. Chemistry shows sodium 140, po tassium 3.4, chloride 108, bicarb 25, BUN 7, creatinine 0.94, glucose 83. Assessment And Plan: Splenic and renal infarcts, leukocytosis which is improving. Currently on vanc omycin. Continue antibiotic and supportive care. We will decide depending on CT angio to continue a ntibiotics IV or can be switched to oral. We will follow the patient closely. NF/MODL Voice ID: [id number] Report ID: [id number]
[2020-09-23] MEDS: NA CHLORIDE 0.9% 1,000 ML IV SCH (19:08)
[2020-09-23] MEDS: Levofloxacin500mg IV 500 MG/100 ML BAG IV SCH (20:30)
[2020-09-23 22:57] VITALS: O2SAT 100
[2020-09-24] MEDS: NA CHLORIDE 0.9% 1,000 ML IV SCH ×2 (02:00→09:18)
[2020-09-24] MEDS: VANCOMYCIN 2 GM in NA CHLORIDE 0.9% 500 ML IVPB SCH (02:01)
[2020-09-24] MEDS: METRONIDAZOLE 500mg IVPB 500 MG/100 ML BAG IV SCH (06:13)
[2020-09-24 06:49] LABS: BUN Blood Urea Nitrogen 6 mg/dL (7-18); Bicarbonate 26 mmol/L (21-32); Glucose Level 98 mg/dL (74-106); Magnesium 2.1 mg/dL (1.8-2.4); Potassium 3.7 mmol/L (3.5-5.1); Sodium Level 142 mmol/L (136-145)
[2020-09-24] MEDS: INSULIN -REGULAR HUMAN 50 UNIT/0.5 ML ML SQ SCH ×2 (07:30→11:30)
[2020-09-24] MEDS ORDERED: POTASSIUM CL SA 10 MEQ TAB PO ONE (09:00)
[2020-09-24] MEDS: BUSPIRONE HCL 5 MG TABLET PO SCH (09:13)
[2020-09-24] MEDS: Enoxaparin 120 MG/0.8 ML SYR SQ SCH (09:14)
[2020-09-24] MEDS: carvediloL 12.5 MG TAB PO SCH (09:14)
[2020-09-24] MEDS: ENSURE HIGH PROTEIN 237 ML CAN PO SCH (09:17)
[2020-09-28 04:29] VITALS: BP 163/72; TEMP 97.1
--- NOTE | 2020-09-28 04:31 | P.DS ---
Discharge Date: 09/24/20 Disposition: AMA-LEFT AGAINST MEDICAL ADVIC Reason for Admission: Splenic/renal infarct Consultations: Cardiology Infectious disease General surgery - Problems (1) Septic embolism Status: Acute (2) Splenic infarct Status: Acute (3) Renal infarct Status: Acute (4) PAD (peripheral artery disease) Status: Acute (5) Status post laparoscopic cholecystectomy Status: Acute (6) Hypertension Status: Chronic Qualifiers: Hypertension type: essential hypertension Qualified Code(s): I10 - Essential (primary) hypertension (7) Non-insulin dependent type 2 diabetes mellitus Status: Chronic Brief History of Present Illness: Patient is a 55-year-old gentleman who recently had a laparoscopic cholecystectomy. Patient had been doing well but he started having some pain and his workup in the emergency room revealed patient had a renal infarct and splenic infarct. This is most likely from an embolic disease. He was admitted to the hospital for further workup. Hospital Course: Patient was awaiting a PICC line for CT aortogram. Echocardiogram was negative. Patient did not want to wait any longer and left against medical advise. Vital Signs/Physical Exam: Temp Pulse Resp BP Pulse Ox 97.1 F 56 20 163/72 H 97 09/28/20 04:29 09/28/20 04:29 09/28/20 04:29 09/28/20 04:29 09/28/20 04:29 General: Alert, In no apparent distress, Oriented x3 Laboratory Data at Discharge: WBC 11.2 K/uL (4.3-10.9) H D 09/23/20 05:31 Hgb 12.3 g/dL (13.6-17.9) L 09/23/20 05:31 Hct 35.3 % (39.6-49.0) L 09/23/20 05:31 Plt Count 567 K/uL (152-406) H 09/23/20 05:31 PT 15.9 SECONDS (9.5-12.5) H 09/20/20 20:38 INR 1.36 09/20/20 20:38 Sodium 142 mmol/L (136-145) 09/24/20 05:54 Potassium 3.7 mmol/L (3.5-5.1) 09/24/20 05:54 BUN 6 mg/dL (7-18) L 09/24/20 05:54 Creatinine 0.86 mg/dL (0.55-1.3) 09/24/20 05:54 Glucose 98 mg/dL (74-106) 09/24/20 05:54 Magnesium 2.1 mg/dL (1.8-2.4) 09/24/20 05:54 Total Bilirubin 0.3 mg/dL (0.2-1.0) 09/23/20 05:31 AST 58 U/L (15-37) H 09/23/20 05:31 ALT 60 U/L (12-78) 09/23/20 05:31 Alkaline Phosphatase 184 U/L (45-117) H 09/23/20 05:31 Troponin I < 0.02 ng/mL (0.0-0.045) 09/21/20 08:50 Triglycerides 197 mg/dL (<150) H 09/21/20 03:10 Cholesterol 85 mg/dL (<200) 09/21/20 03:10 HDL Cholesterol 24 mg/dL (40-60) L 09/21/20 03:10 Cholesterol/HDL Ratio 3.54 09/21/20 03:10 Lipase 231 U/L (73-393) 09/20/20 17:41 Home Medications: Buspirone HCl [Buspar] 10 mg PO TID 06/24/20 Carvedilol [Coreg] 12.5 mg PO BID 06/24/20 Lisinopril [Zestril] 40 mg PO DAILY 06/24/20 Patient Discharge Instructions: Patient left against medical advice Followup: NONE,NONE [Primary Care Provider] - Time spent managing pt's care (in minutes): 35
== END 2020-09-24 12:40 | disposition left against medical advice (07) | DRG 699 ==
LOC: ER 14:00 → ERHOLD 22:14 → 2ND 23:11
PROVIDERS: ADMIT Hospitalist; ATTEND Hospitalist
DX: N28.0 Ischemia and infarction of kidney (principal); I76 Septic arterial embolism; E46 Unspecified protein-calorie malnutrition; D73.5 Infarction of spleen; I10 Essential (primary) hypertension; D72.829 Elevated white blood cell count, unspecified; E11.51 Type 2 diabetes mellitus with diabetic peripheral angiopathy without gangrene; F17.210 Nicotine dependence, cigarettes, uncomplicated; E78.5 Hyperlipidemia, unspecified; E66.01 Morbid (severe) obesity due to excess calories; Z68.35 Body mass index [BMI] 35.0-35.9, adult; Z90.49 Acquired absence of other specified parts of digestive tract; Z60.2 Problems related to living alone; Z79.899 Other long term (current) drug therapy; Z20.828 Contact with and (suspected) exposure to other viral communicable diseases
CPT/HCPCS: 36415; 71045; 74177; 80048; 80053; 80061; 80076; 80202; 80307; 81003; 82947; 83605; 83690; 83735; 83880; 84132; 84439; 84443; 84484; 85025; 85610; 85652; 87040; 93005; 93306; 96361; 96365; 96367; 96372; 96375; 99285; J1650; J2405; J3370; J3475; J3480; J7030; J7040; J7050; Q9967; U0002

== ENCOUNTER 2021-04-02 20:43 | Inpatient (IN) | payer SELFPAY ==
[2021-04-02] MEDS ORDERED: NA CHLORIDE 0.9% 0 ML ONE (21:48)
[2021-04-02 22:19] LABS: Absolute Lymphocytes (CBC) 0.9 K/uL (0.7-4.9); Basophils % 0.4 % (0-1.3); Hematocrit 50.5 % (39.6-49.0); Lymphocytes % 4.2 % (15.3-44.8); MPV 9.3 fL (7.6-11.3); RBC Red Blood Cell Count 5.21 M/uL (4.33-5.43)
[2021-04-02 22:22] LABS: Albumin 4.8 g/dL (3.4-5.0); Bilirubin Total 0.8 mg/dL (0.2-1.0); Potassium 3.8 mmol/L (3.5-5.1); Protein, Total 10.2 g/dL (6.4-8.2)
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
--- NOTE | 2021-04-02 22:54 | ER ---
Nurse's Notes [facility] Name: Alcides Werner Age: 56 yrs Sex: Male : 1965 Arrival Date: 04/02/2021 Time: 20:55 Bed 5 Private MD: Diagnosis: Acute kidney injury;Dehydration Presentation: 04/02 20:30 Chief complaint: EMS states: Called for patient with right lower leg pain that began lp1 about 2 hours ago; reports right lower leg pain radiating up to right thigh; Denies any trauma or injury. 20:30 Coronavirus screen: Client denies travel out of the [place] in the last 14 days. At this lp1 time, the client does not indicate any symptoms associated with coronavirus-19. Ebola Screen: No symptoms or risks identified at this time. Initial Sepsis Screen: Does the patient meet any 2 criteria? No. Patient's initial sepsis screen is negative. Does the patient have a suspected source of infection? No. Patient's initial sepsis screen is negative. Risk Assessment: Do you want to hurt yourself or someone else? Patient reports no desire to harm self or others. Onset of symptoms was April 02, 2021 at 18:00. 20:30 Method Of Arrival: EMS: [facility] lp1 20:30 Acuity: FELICIA 3 lp1 Historical: - Allergies: 20:58 No Known Allergies; lp1 - Home Meds: 20:58 BP med [Active]; lp1 - PMHx: 20:58 Diabetes - NIDDM; Hypertension; lp1 - PSHx: 20:58 Cholecystectomy; lp1 - Immunization history:: Adult Immunizations up to date. - Social history:: Smoking status: Patient reports the use of cigarette tobacco products, smokes one pack cigarettes per day. Screenin:58 Abuse screen: Denies threats or abuse. Denies injuries from another. Nutritional lp1 screening: No deficits noted. Tuberculosis screening: No symptoms or risk factors identified. 04/03 00:07 Fall Risk None identified. lp1 Assessment: 04/02 21:02 General: Appears in no apparent distress. Behavior is calm, cooperative, appropriate lp1 for age. Pain: Complains of pain in right calf Pain radiates to lateral aspect of right thigh Pain currently is 3 out of 10 on a pain scale. Neuro: Level of Consciousness is awake, alert, obeys commands, Oriented to person, place, time, situation. Cardiovascular: Patient's skin is warm and dry. Pulses are palpable in right dorsalis pedis artery and left dorsalis pedis artery. Respiratory: Respiratory effort is even, unlabored, Breath sounds are clear bilaterally. GI: Abdomen is round. : No signs and/or symptoms were reported regarding the genitourinary system. EENT: No signs and/or symptoms were reported regarding the EENT system. Derm: Skin is intact, Skin is dry, Skin is normal. Musculoskeletal: Circulation, motion, and sensation intact. Range of motion: intact in all extremities. 21:58 Reassessment: Ultrasound at bedside. lp1 23:00 Reassessment: Patient appears in no apparent distress at this time. Patient resting, lp1 eyes closed, respirations even, unlabored;. Vital Signs: 20:30 BP 131 / 98; Pulse 90; Resp 18; Temp 97.5(O); Pulse Ox 97% on R/A; Weight 131.54 kg lp1 (R); Height 5 ft. 8 in. (172.72 cm); Pain 3/10; 21:30 BP 112 / 74; Pulse 91; Resp 18; Pulse Ox 98% on R/A; lp1 23:00 BP 111 / 78; Pulse 74; Resp 18; Pulse Ox 98% on R/A; lp1 20:30 Body Mass Index 44.09 (131.54 kg, 172.72 cm) lp1 ED Course: 20:55 Patient arrived in ED. lp1 20:57 Triage completed. lp1 20:57 Arm band placed on. lp1 20:58 Patient has correct armband on for positive identification. Bed in low position. lp1 21:00 Jm Torres NP is PHCP. pm1 21:00 Manuel Miller MD is Attending Physician. pm1 21:01 Che Chaves, GAYLE is Primary Nurse. lp1 21:50 Accessed peripheral vein via ultrasound, utilizing dynamic ultrasound technique using lp1 ,sterile technique, per hospital protocol. Clean \T\ dry. Good blood return. Flushes easily. 20g IV to R AC. 22:16 Extrem Venous W Compression Curt US In Process Unspecified. EDMS 22:53 Jose Luis Peck MD is Hospitalizing Provider. pm1 23:55 CT Abd/Pelvis - Without Contrast In Process Unspecified. EDMS 04/03 00:05 No provider procedures requiring assistance completed. Patient admitted, IV remains in lp1 place. Administered Medications: 04/02 21:50 Drug: NS 0.9% 1000 ml Route: IV; Rate: 1000 ml; Site: right antecubital; lp1 04/03 00:07 Follow up: IV Status: Completed infusion; IV Intake: 1000ml lp1 04/02 22:46 Not Given (Physician Discretion): NS 0.9% 1000 ml IV at 125 ml/hr continuous pm1 22:55 Not Given (Physician Discretion): Lactated Ringers Solution 1000 ml IV at 150 ml/hr pm1 continuous 23:00 Drug: NS 0.9% 1000 ml Route: IV; Rate: 1000 ml; Site: right antecubital; lp1 04/03 00:08 Follow up: IV Status: Infusion continued upon admission lp1 Intake: 00:07 IV: 1000ml; Total: 1000ml. lp1 Outcome: 04/02 22:53 Decision to Hospitalize by Provider. pm1 04/03 00:07 Admitted to ER Hold. Please see [facility] for further documentation. lp1 Condition: stable Instructed on the need for admit. 01:50 Admitted to Tele room 406, with chart, Report called to GAYLE Bolton lp1 02:03 Patient left the ED. ea Signatures: Dispatcher [employer] EDFL Che Chaves RN RN lp1 Jm Torres, EXTRACTOR OPERATOR EXTRACTOR OPERATOR pm1 Abby Blunt RN RN ea
[2021-04-02 23:02] LABS: Blood Morphology Comment NOT SEEN (NOT SEEN); Platelet Estimate ADEQ
[2021-04-02] MEDS ORDERED: NA CHLORIDE 0.9% 2,000 ML ONE (23:25)
--- NOTE | 2021-04-02 23:43 | P.HP ---
Certification for Inpatient Patient admitted to: Inpatient Patient will require the following post-hospital care: None Practitioner: I am a practitioner with admitting privileges, knowledge of patient current condition, hospital course, and medical plan of care. Services: Services provided to patient in accordance with Admission requirements found in Title 42 Section 412.3 of the Code of Federal Regulations Patient History Date of Service: 04/02/21 Primary Care Provider: charles jiménez Reason for admission: Acute renal failure History of Present Illness: 56-year-old male with history of hypertension, diabetes mellitus type 2 presents emergency department for bilateral leg pain. Patient reports that he spent all day at the [place] and on his way home had severe leg pain prompting him to need to call the ambulance. Patient was evaluated in the emergency department, labs significant for white blood cell count 29.6 with left shift, BUN 37 creatinine 5.39 GFR 11 glucose 157 calcium 10.9 potassium 3.8 BUN creatinine ratio less than 10. Patient does report taking Aleve every other day as well as a unknown blood pressure medication but patient was previously on lisinopril. Patient previous admission for acute renal failure, additional admission for splenic/renal infarcts deemed to be plaque versus septic. Echocardiogram previously ruled out endocarditis the patient left AMA in the middle of his workup. Patient given 2 L normal saline bolus the emergency department, NS infusion initiated. ED provider wishes to admit for further evaluation and management. CT abdomen pelvis without contrast pending. 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 - Family History Father -: Heart disease, Hypertension Mother -: Stroke - Social History Alcohol use: Yes CD- Drugs: No Caffeine use: Yes Place of Residence: Home Review of Systems 10-point ROS is otherwise unremarkable General: Malaise Musculoskeletal: Leg Pain Physical Examination - Physical Exam General: Alert, In no apparent distress, Oriented x3, Obese HEENT: Atraumatic, PERRLA, Mucous membr. moist/pink Neck: Supple, 2+ carotid pulse no bruit, No LAD Respiratory: Clear to auscultation bilaterally, Normal air movement Cardiovascular: Regular rate/rhythm, Normal S1 S2 Gastrointestinal: Normal bowel sounds, No tenderness Musculoskeletal: No tenderness Integumentary: No rashes Neurological: Normal speech, Normal strength at 5/5 x4 extr, Normal tone, Normal affect - Studies Laboratory Data (last 24 hrs) 04/02/21 21:50: Sodium 136, Potassium 3.8, BUN 37 H, Creatinine 5.39 H*, Glucose 157 H, Total Bilirubin 0.8, AST 36, ALT 57, Alkaline Phosphatase 140 H 04/02/21 21:50: WBC 21.60 H*, Hgb 17.6, Hct 50.5 H, Plt Count 365 Assessment and Plan - Plan Assessment Acute renal failure Leukocytosis Hypertension Diabetes mellitus type 2 Plan Acute renal failure: Patient with 1 previous admission for similar renal failure, patient at that time was dehydrated, using NSAIDs and Jeremy inhibitors and hypotensive. Patient reports he is still taking aleve about every other day, counseled on need for cessation. Patient reports he is taking 1 blood pressure medication but unaware of what it is. There is likely some dehydration component as well was NSAID. Low BUN to creatinine ratio. Nephrology consulted patient given 2 L normal saline bolus in the ER, continue NS at 100 cc/hour overnight. Renal ultrasound, CPK, uric acid levels pending. Patient with previous renal/spotting infarcts, CT without contrast pending for further evaluation. Leukocytosis: ROS negative, no fevers, chills or other symptoms. Pro calcitonin, ESR pending, blood cultures obtained. No abdominal tenderness. Possibly related to dehydration. Hypertension: Blood pressure stable this time, will need to evaluate what medication patient is taking, may need adjustment. Diabetes mellitus type 2: A.c. HS Accu-Cheks, sliding scale insulin therapy. ADA diet. A1c with morning labs. Discharge Plan: Home Plan to discharge in: Greater than 2 days - Advance Directives Does patient have a Living Will: No Does patient have a Durable POA for Healthcare: No - Code Status/Comfort Care Code Status Assessed: Yes (Full code) Critical Care: No Time Spent Managing Pts Care (In Minutes): 55
[2021-04-03] MEDS ORDERED: ONDANSETRON 4 MG/2 ML VIAL IV PRN (00:30)
[2021-04-03] MEDS ORDERED: ACETAMINOPHEN 500 MG TAB PO PRN (00:30)
[2021-04-03 00:40] VITALS: BMI 38.1
[2021-04-03] MEDS: NA CHLORIDE 0.9% 1,000 ML IV SCH ×4 (02:30→19:59)
[2021-04-03] MEDS: CEFTRIAXONE/SWI 1gm 1 GM/10 ML SYR IVP SCH ×2 (03:00→19:58)
[2021-04-03 04:56] LABS: Absolute Lymphocytes (CBC) 2.3 K/uL (0.7-4.9); Basophils % 0.6 % (0-1.3); Hematocrit 44.3 % (39.6-49.0); Lymphocytes % 12.7 % (15.3-44.8); MPV 9.1 fL (7.6-11.3); RBC Red Blood Cell Count 4.54 M/uL (4.33-5.43)
[2021-04-03 05:26] LABS: Bilirubin Total 0.5 mg/dL (0.2-1.0); Magnesium 2.3 mg/dL (1.8-2.4); Potassium 3.4 mmol/L (3.5-5.1); Protein, Total 8.3 g/dL (6.4-8.2); Thyroid Stimulating Hormone 0.424 uIU/mL (0.360-3.740)
[2021-04-03] MEDS: INSULIN -REGULAR HUMAN 50 UNIT/0.5 ML ML SQ SCH ×2 (07:30→11:30)
--- NOTE | 2021-04-03 07:38 | RAD REPORT ---
EXAM DESCRIPTION: US - Extrem Venous W Compress Curt - 04/02/2021 10:15 pm CLINICAL HISTORY: PAIN, bilateral Preliminary imaging results provided at the time of the study. COMPARISON: None. TECHNIQUE: Real-time sonographic evaluation of the bilateral lower extremity common femoral, superfi cial femoral, popliteal and posterior tibial veins was performed. FINDINGS: Normal compressibility, flow augmentation, phasic flow and spontaneous flow are identified in the left and right lower extremity common femoral, superficial femoral, popliteal and posterior t ibial veins. No intraluminal filling defects seen. IMPRESSION: No DVT in either lower extremity.
[2021-04-03] MEDS ORDERED: POTASSIUM CL SA 10 MEQ TAB PO ONE ×2 (08:00→14:00)
[2021-04-03] MEDS: HEPARIN 5000 UNIT/ML 1 ML VIAL SQ SCH ×2 (08:21→19:59)
[2021-04-03] MEDS ORDERED: CEFTRIAXONE 1 GM/NS 50 ML 1 GM/50 ML BAG IV SCH (09:00)
[2021-04-03 09:26] LABS: Urine Appearance TURBID (Clear); Urine Blood NEGATIVE (Negative); Urine Color DK YELLOW (Yellow); Urine Glucose NEGATIVE (Negative); Urine Protein TRACE (Negative); Urine Urobilinogen 0.2 mg/dL (0.2-1.0)
[2021-04-03 09:31] LABS: Urine Bilirubin 1+ (Negative); Urine Microscopic Reflex ORDER UMIC
[2021-04-03 09:42] LABS: Urine Bacteria <20 /HPF (NONE SEEN); Urine RBC NONE SEEN /HPF (NONE SEEN)
[2021-04-03 10:49] LABS: Urine Protein/Creatinine Ratio 0.16 ratio (<0.15)
[2021-04-03 10:57] LABS: C.diff Antigen/Toxin Ag pos : Tox neg (NEG : NEG)
[2021-04-03] MEDS ORDERED: NA CHLORIDE 0.9% 1,000 ML IV ONE (13:20)
--- NOTE | 2021-04-03 14:40 | P.PN ---
Subjective Date of Service: 04/03/21 Primary Care Provider: charles jiménez Chief Complaint: Acute renal failure Subjective: Improving (feeling better overall. reports diarrhea over the last 2- 3 days, reports a few episodes and watery. no abd pain, no nausea/vomiting.) Review of Systems 10-point ROS is otherwise unremarkable Physical Examination - Vital Signs Temperature: 97.4 F Blood Pressure: 100/52 Pulse: 66 Respirations: 16 Pulse Ox (%): 99 - Studies Laboratory Data (last 24 hrs) 04/02/21 21:50: Sodium 136, Potassium 3.8, BUN 37 H, Creatinine 5.39 H*, Glucose 157 H, Total Bilirubin 0.8, AST 36, ALT 57, Alkaline Phosphatase 140 H 04/02/21 21:50: WBC 21.60 H*, Hgb 17.6, Hct 50.5 H, Plt Count 365 Assessment & Plan Physician Review Additional Text: Physical Exam General: Alert, In no apparent distress, Oriented x3, Obese HEENT: normal conjunctiva, sclera anicteric Respiratory: Clear to auscultation bilaterally, Normal air movement Cardiovascular: Regular rate/rhythm, Normal S1 S2 Gastrointestinal: soft, nontender, nondistended Musculoskeletal: No tenderness/joint swelling Integumentary: No rashes Neurological: Normal speech, Normal strength at 5/5 x4 extr, Normal affect Problem List Acute renal failure Leukocytosis Hypertension Acute renal failure - unclear etiology, pt appears pre-renal, using NSAIDs every other day, and ACEI. -possibly worsened by diarrhea / worsening dehydration -improving with IVF hydration, nephrology consulted -BP remain on low end, continue IVf -h/o renal/splenic infarcts, CT pending -continue home meds as indicated -pt reports several episodes of diarrhea, no abd pain, yellowish stool -no recent antibiotic usage, no recent hospitalizatoin, however elevated leukocytosis and diarrhea is concerning for c. diff -will obtain stool studies, start empiric PO Vanc for now -HgA1c: 5.5, not diabetic Time Spent Managing Pts Care (In Minutes): 35
[2021-04-03] MEDS: VANCOMYCIN ORAL SOLN 250 MG/5 ML OSYR PO SCH ×3 (17:29→23:39)
--- NOTE | 2021-04-03 18:06 | RAD REPORT ---
EXAM DESCRIPTION: US - Renal Ultrasound-Complete - 04/03/2021 5:30 pm CLINICAL HISTORY: ARF COMPARISON: Abdomen Pelvis Wo Contrast dated 04/02/2021 FINDINGS: The right kidney measures approximately 11.8 x 5.6 cm. The left kidney measures 11.5 x 5. 5 cm. Renal cortical echogenicity is normal. Focal areas of parenchymal thinning are present more not iceable in the superior aspect of the left kidney. This is believed to be infarcted parenchyma from o ld infection or ischemic insult. No hydronephrosis or suspicious renal mass. A 3.2 centimeter cyst is present upper pole right kidney. Urinary bladder is only partially filled limiting assessment. No gross abnormality seen peer IMPRESSION: No hydronephrosis or suspicious renal mass. Areas of cortical thinning present believed be bold infarction or ischemic insults.
--- NOTE | 2021-04-03 18:41 | CON ---
Date of Consultation: 04/03/2021 Reason For Consultation: Elevated BUN and creatinine, fluid management. History Of The Present Illness: This is a pleasant 56-year-old gentleman with significant past medic al history of questionable diabetes not on any treatment, hypertension, osteoarthritis. The patient is taking Aleve 2 tablets daily for almost a year. 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 According to the patient in his way home, the patient started feeling weakness with cramp in his neck. For that vinay pringle, reported to the hospital. Upon arrival to the hospital, found to have creatinine 5.3 with GFR of 11 and hypercalcemia. For that reason, the patient was admitted. The patient was started on IV hydr ation. The patient slightly feeling better. Creatinine had trended down to 3.9 with GFR of 16. The patient has same episode back in 2019 on June. After hydration, creatinine trended down from 7.3 to 0.7. The patient denied any fever, any chills. As I mentioned, the patient admitted that he taki ng Aleve on a daily basis. The patient is also on losartan. Past Medical History: Includes; 1.Diabetes. 2.Hypertension. 3.Hyperlipidemia. Home Medications: Include lisinopril, carvedilol, Proscar. Allergies: NO KNOWN DRUG ALLERGIES. Past Surgical History: Includes cholecystectomy. Family History: Positive for hypertension and coronary artery disease, CVA. Social History: Active alcohol. Denied smoking. Denied drugs abuse. Review of Systems: Head and Neck: No red eye. No ear pain. GI: No nausea. No vomiting. : No polyuria. No dysuria. No hematuria. Patient Service Coordinator: Not applicable. Respiratory: No shortness of breath. Cardiovascular: No chest pain. Endocrine: No polydipsia. Skin: No rash. Neuro: Generalized fatigue. Musculoskeletal: Lower extremity pain and cramp. Physical Examination: General: When I saw the patient, the patient lying in bed. Vital Signs: Blood pressure of 100/52 down earlier to 96/63, pulse of 66, afebrile. Chest: Clear to auscultation. Heart: S1, S2. Regular. Abdomen: Morbidly obese. Could not appreciate any organomegaly. Extremities: No edema. Neuro: Alert and oriented x3. No focal. No tremor. Laboratory Data: Back in September 2020; creatinine 1, GFR of 77. On arrival to the hospital; creati nine 5.3, BUN 37 with GFR of 11. WBC 21.6, H and H 17.6/60. Upon discharge back in September; hemogl obin 12.3/35. Today lab data; WBC 18.4, H and H 15.3/43.3, platelets 295. Sodium 135, potassium 3.4 , bicarb 20, BUN 40, creatinine 3.9, GFR of 16, uric acid 14, calcium 9.1, magnesium 2.3. Procalcito tomy 0.1. PTH 8.6. Urinalysis; specific gravity of 1.020. PC ratio 0.16. CT abdomen and pelvis was done, report still pending. Reading by me, there is mild fullness on the left kidney with cyst on t he right kidney. No significant hydronephrosis. Assessment And Plan: 1.Acute kidney injury, multifactorial, secondary to prerenal, superimposed with MARGARET inhibitor and no nsteroidal use. No uremic symptoms. No hyperkalemia. I agree with holding lisinopril, start the pa tient on aggressive hydration, and we will monitor the patient closely. 2.Renal cyst. We will follow up of reading on the CT. 3.Dehydration. The patient is still on the dry side. I am going to go ahead and bolus the patient again with 1 L and we will follow up the patient closely. 4.Hypercalcemia secondary to dehydration, resolved. 5.Hypokalemia. We will supplement. 6.Hypertension with the presence of low blood pressure and acute kidney injury. Hold the MARGARET inhibi tor and all blood pressure medications for the time being. Thank you Dr. Peck for allowing us to participate in the care of your patient. Time spent discussin g with the patient, examining the patient [id number], placing orders, discussing the case with Dr. Peck and other another staff member including nursing, explaining to the patient, reviewing data and placing order 75 minutes. CHRISTINA Voice ID: [id number] Report ID: [id number]
[2021-04-04 04:05] LABS: MPV 9.9 fL (7.6-11.3)
[2021-04-04 04:24] LABS: Albumin 3.1 g/dL (3.4-5.0); Bilirubin Total 0.4 mg/dL (0.2-1.0); Phosphorus 2.5 mg/dL (2.5-4.9); Potassium 4.2 mmol/L (3.5-5.1); Protein, Total 6.8 g/dL (6.4-8.2)
[2021-04-04 04:28] LABS: Absolute Lymphocytes (CBC) 2.9 K/uL (0.7-4.9); Basophils % 0.8 % (0-1.3); Hematocrit 38.2 % (39.6-49.0); Lymphocytes % 30.7 % (15.3-44.8); RBC Red Blood Cell Count 3.89 M/uL (4.33-5.43)
[2021-04-04] MEDS: NA CHLORIDE 0.9% 1,000 ML IV SCH ×4 (05:21→13:56)
[2021-04-04] MEDS: VANCOMYCIN ORAL SOLN 250 MG/5 ML OSYR PO SCH ×3 (05:21→17:24)
[2021-04-04] MEDS: HEPARIN 5000 UNIT/ML 1 ML VIAL SQ SCH ×2 (08:28→20:04)
--- NOTE | 2021-04-04 11:35 | RAD REPORT ---
EXAM DESCRIPTION: CT - Abdomen Pelvis Wo Contrast - 04/03/2021 3:21 am CLINICAL HISTORY: 56 years, Male, arf;Abd pain COMPARISON: 09/10/2020. TECHNIQUE: Multiple transaxial tomograms of the abdomen and pelvis were performed from the lung base s to the symphysis pubis 5 mm slice thickness at 5 mm interval reconstruction, without administration of IV and oral contrast. Multiplanar reformats in the sagittal and coronal plane were generated and reviewed. This exam was performed according to our departmental dose-optimization protocol, which includes auto mated exposure control, adjustment of the mA and/or kV according to patient size and/or use of iterat nik reconstruction technique. FINDINGS: The lack of IV and oral contrast limits evaluation of solid organs, subtle lesions cannot be excluded. The lung bases demonstrate to be clear. Grossly the unopacified liver, pancreas and adrenal glands demonstrate to be within normal limits, no significant focal lesions were identified. Surgical clips within the gallbladder fossa correspondi ng to previous cholecystectomy. The spleen demonstrated the presence of lobulation is within the posterior inferior subcapsular aspec t Comparison with previous study suggesting the possibility of areas of infarction. The left kidney demonstrated the presence of a focal area of cortical deformity within the midpole pe rhaps suggesting area of scarring. The right kidney demonstrate a upper pole right renal cyst measuring 2.9 cm on image 25 and lower kiran e exophytic right renal cyst measuring 2.2 cm on image 42. The ureters displays normal appearance with normal caliber, no hydroureter was seen. Grossly the unopacified stomach, small bowel and large bowel demonstrate to be within normal limits. There is no evidence for bowel dilatation/or free air. There is diverticulosis within the left site c olon/sigmoid colon. The appendix is unremarkable. The urinary bladder demonstrate to be within normal limits. The prostate gland is unremarkable. The a di demonstrate minimal atherosclerotic disease extending into the aortic bifurcation. There is no retroperitoneal lymphadenopathy. There is no evidence for ascites. The the bone windows demonstrat e no significant skeletal lesions. Minimal anterior spondylosis. IMPRESSION: Colonic diverticulosis without evidence of acute diverticulitis. Right renal cysts. Interval development of lobulation within the posterior inferior subcapsular aspect of the spleen, dillon ggesting the possibility of areas of prior infarction. Status post cholecystectomy. Minimal atherosclerotic disease of the aorta. Electronically signed by: Marquez Henderson MD 04/03/2021 12:18 AM CDT Due to temporary technical issues with the PACS/Fluency reporting system, reports are being signed by the in house radiologists without review as a courtesy to insure prompt reporting. The interpreting radiologist is fully responsible for the content of the report.
--- NOTE | 2021-04-04 14:07 | P.PN ---
Subjective Date of Service: 04/04/21 Primary Care Provider: charles jiménez Chief Complaint: Acute renal failure Subjective: Improving (pt feeling better, had 3 watery - loose BMs yesterday. no abdominal pain, no nausea/vomiting c diff ag +, tox -, PCR pending; pt denies h/o c diff infection) Review of Systems 10-point ROS is otherwise unremarkable Physical Examination - Vital Signs Temperature: 97.3 F Blood Pressure: 137/67 Pulse: 60 Respirations: 16 Pulse Ox (%): 96 Assessment & Plan Physician Review Additional Text: Physical Exam General: Alert, In no apparent distress, Oriented x3, Obese HEENT: normal conjunctiva, sclera anicteric Respiratory: Clear to auscultation bilaterally, Normal air movement Cardiovascular: Regular rate/rhythm, Normal S1 S2 Gastrointestinal: soft, nontender, nondistended Musculoskeletal: No tenderness/joint swelling Integumentary: No rashes Neurological: Normal speech, Normal strength at 5/5 x4 extr, Normal affect Problem List Acute renal failure Leukocytosis, diarrhea, concern for c.diff infection h/o renal/splenic infarcts Hypertension -Acute renal failure - unclear etiology, pt appears pre-renal, using NSAIDs every other day, and ACEI. Worsened by diarrhea / worsening dehydration -improving with IVF hydration, nephrology consulted -h/o renal/splenic infarcts -pt reports several episodes of diarrhea, diarrhea began ~4-5 days prior to admission, no abd pain, yellowish stool -3 watery BMs yesterday, seems to be slowing down -no recent antibiotic usage, no recent hospitalization, however elevated leukocytosis and diarrhea is concerning for c. diff -stool studies pending. c diff Ag+, tox negative, PCR pending -empiric PO vanc started 04/03 -HgA1c: 5.5, not diabetic Dispo: anticipate dc home in next 24-48hrs Time Spent Managing Pts Care (In Minutes): 35
[2021-04-04 17:23] VITALS: O2SAT 100
--- NOTE | 2021-04-04 19:47 | PN ---
Date of Progress Note: 04/04/2021 Chief Complaint: Acute kidney injury, severe nonoliguric associated with volume depletion and nonoli guric acute tubular necrosis. History Of Present Illness: The patient upon arrival to the hospital was found to have creatinine of up to 5.3, GFR 11 and hypercalcemia was present. The patient was started on IV hydration. He is fe eling better. Creatinine level is improving gradually. Review of Systems: Denies fever, chills. The patient was taking Aleve prior to this admission. Physical Examination: Lungs: Clear to auscultation bilaterally. Heart: S1, S2. Abdomen: Soft, benign. Extremities: No edema. Impression And Plan: 1.Acute kidney injury severe associated with prerenal azotemia. Monitor electrolytes and renal pane l. Potassium level was 3.4, and bicarbonate was 20. Metabolic acidosis was mild and there was no hy perkalemia. The patient received IV fluids for hydration. Monitor electrolytes closely when patient is on IV fluid. Suggest hydration as needed. 2.Hypercalcemia secondary to volume depletion and monitor calcium level and magnesium level. Check intact PTH, currently intact PTH is done it showed 8.6 which is adequate suppression by hypercalcemic condition. 3.Hypertension. Hold MARGARET inhibitor due to acute kidney injury. 4.The patient has history of renal cyst and we recommend to follow up with CT scan without contrast at this point. The patient cannot have a contrast. The patient may need a further workup for outpatient and he can follow u p with Urology. ELLA/TARA Voice ID: [id number] Report ID: [id number]
[2021-04-04] MEDS: CEFTRIAXONE/SWI 1gm 1 GM/10 ML SYR IVP SCH (20:05)
[2021-04-05] MEDS: VANCOMYCIN ORAL SOLN 250 MG/5 ML OSYR PO SCH ×3 (00:47→13:04)
[2021-04-05] MEDS: NA CHLORIDE 0.9% 1,000 ML IV SCH (00:49)
[2021-04-05 03:48] LABS: Absolute Lymphocytes (CBC) 2.6 K/uL (0.7-4.9); Basophils % 1.5 % (0-1.3); Hematocrit 37.6 % (39.6-49.0); Lymphocytes % 27.6 % (15.3-44.8); MPV 10.2 fL (7.6-11.3); RBC Red Blood Cell Count 3.83 M/uL (4.33-5.43)
[2021-04-05 04:06] LABS: Albumin 2.9 g/dL (3.4-5.0); Bilirubin Total 0.4 mg/dL (0.2-1.0); Magnesium 1.7 mg/dL (1.8-2.4); Phosphorus 2.4 mg/dL (2.5-4.9); Protein, Total 6.5 g/dL (6.4-8.2)
[2021-04-05] MEDS ORDERED: MAGNESIUM SULFATE 1 gm IVPB 1 GM/100 ML BAG IV ONE (06:02)
[2021-04-05] MEDS: HEPARIN 5000 UNIT/ML 1 ML VIAL SQ SCH (08:40)
--- NOTE | 2021-04-05 11:01 | PN ---
Date of Progress Note: 04/05/2021 Subjective: The patient was admitted with acute kidney injury secondary to rhabdo, prerenal dehydration, superimposed with nonsteroidal use and MARGARET inhibitor. The patient's after hydration kidney function normalized. Upon admission, creatinine above 5. The patient feeling much better. Physical Examination: Vital Signs: Blood pressure 149/72, pulse of 58, afebrile. The patient voiding freely. Chest: Clear to auscultation. Heart: S1, S2. Regular. Abdomen: Soft, nontender, morbidly obese. Could not appreciate any organomegaly. Extremities: No edema. Neuro: Alert, oriented x3. No focal. Laboratory Data: WBC 9.3, H and H 12.8/37.6, platelets 260. Sodium 143, potassium 4, bicarb 23, BUN 13, creatinine 0.9, phosphorus 2.4, magnesium 1.7. Current Medications: The patient on include ceftriaxone, vancomycin, IV fluid of normal saline, magnesium sulfate. Assessment And Plan: 1. Acute kidney injury, multifactorial, secondary to prerenal, superimposed with MARGARET inhibitor and nonsteroidal/rhabdomyolysis. The patient recovered very well. Kidney function normalized. I am going to go ahead and discontinue IV fluid. 2. Hypertension. Given the recent acute kidney injury, I am going to keep holding MARGARET inhibitor for the time being. 3. Rhabdomyolysis, secondary to heat exhaustion, recovered, resolved. 4. Renal cyst, right-sided, simple, 2.9 cm and 2.2, on the ultrasound 3.2, simple. The patient is going to need followup as outpatient. 5. Hypokalemia, hypomagnesemia. We will supplement. The patient cleared from the Renal standpoint for discharge planning. time spent exam the patient face to face, placing order , discussing the case with the patient and family, reviewing the data , discussing the case with other garment steamer including hopitalist and other business travel consultant 45 min. CHRISTINA Voice ID: [id number] Report ID: [id number] LADY
[2021-04-05 12:22] VITALS: BP 157/67; TEMP 97.3
--- NOTE | 2021-04-05 13:05 | P.DS ---
Admission Date: 04/02/21 Discharge Date: 04/05/21 Primary Care Provider: charles jiménez Disposition: ROUTINE DISCHARGE Discharge Condition: FAIR Reason for Admission: Acute renal failure Consultations: Renal - Problems (1) CLEM (acute kidney injury) Status: Acute (2) Rhabdomyolysis Status: Acute (3) Hypertension Status: Chronic Qualifiers: Hypertension type: essential hypertension Qualified Code(s): I10 - Essential (primary) hypertension (4) Non-insulin dependent type 2 diabetes mellitus Status: Chronic Brief History of Present Illness: 56-year-old gentleman with a history of hypertension, noninsulin dependent diabetes was brought to the emergency department by EMS due to bilateral leg pain. Patient found to have severe leukocytosis and acute renal failure with creatinine up to 5.39. He was afebrile, slightly tachycardic. Patient admitted to taking Aleve. He is also on lisinopril for hypertension. Patient was admitted for further management. Hospital Course: Patient admitted to the medical floor and started on broad-spectrum antibiotic. He was aggressively hydrated with IV fluid. Nephrology was consulted to assist with management of the acute renal failure. Patient had bouts of diarrhea. Stool was positive for C diff antigen but toxin negative. The acute renal failure resolved with IV hydration. Blood cultures yielded no growth. Stool was Hemoccult positive but this could be secondary to infectious diarrhea. May repeat stool for occult blood once the diarrhea has resolved. Patient placed on oral vancomycin to treat C. diff. Patient has a history of antibiotic use for sepsis. Patient seen by nephrology and cleared for discharge. He is prescribed oral vancomycin to take for 2 weeks for C. diff. Vital Signs/Physical Exam: Temp Pulse Resp BP Pulse Ox 97.3 F 53 20 157/67 H 100 04/05/21 12:00 04/05/21 12:00 04/05/21 12:00 04/05/21 12:04/05/21 12:00 General: Alert, In no apparent distress, Oriented x3 HEENT: Mucous membr. moist/pink Neck: Supple Respiratory: Clear to auscultation bilaterally, Normal air movement Cardiovascular: No edema, Regular rate/rhythm, Normal S1 S2 Gastrointestinal: Normal bowel sounds, Soft and benign, Non-distended, No tenderness Musculoskeletal: No swelling Integumentary: No rashes Neurological: Normal strength at 5/5 x4 extr Lymphatics: No axilla or inguinal lymphadenopathy Laboratory Data at Discharge: WBC 9.30 K/uL (4.3-10.9) 04/05/21 03:10 Hgb 12.8 g/dL (13.6-17.9) L 04/05/21 03:10 Hct 37.6 % (39.6-49.0) L 04/05/21 03:10 Plt Count 260 K/uL (152-406) 04/05/21 03:10 Sodium 143 mmol/L (136-145) 04/05/21 03:10 Potassium 4.0 mmol/L (3.5-5.1) 04/05/21 03:10 BUN 13 mg/dL (7-18) 04/05/21 03:10 Creatinine 0.99 mg/dL (0.55-1.3) 04/05/21 03:10 Glucose 83 mg/dL (74-106) 04/05/21 03:10 Uric Acid 14.0 mg/dL (3.5-7.2) H 04/03/21 04:26 Phosphorus 2.4 mg/dL (2.5-4.9) L 04/05/21 03:10 Magnesium 1.7 mg/dL (1.8-2.4) L 04/05/21 03:10 Total Bilirubin 0.4 mg/dL (0.2-1.0) 04/05/21 03:10 AST 30 U/L (15-37) 04/05/21 03:10 ALT 38 U/L (12-78) 04/05/21 03:10 Alkaline Phosphatase 85 U/L (45-117) 04/05/21 03:10 Triglycerides 302 mg/dL (<150) H 04/03/21 04:26 Cholesterol 163 mg/dL (<200) 04/03/21 04:26 HDL Cholesterol 28 mg/dL (40-60) L 04/03/21 04:26 Cholesterol/HDL Ratio 5.82 04/03/21 04:26 Home Medications: Amlodipine [Norvasc] 10 mg PO DAILY #30 tab 04/05/21 Vancomycin Oral Soln [Vancocin HCl*] 5 ml PO Q6HR #280 ml 04/05/21 New Medications: Vancomycin Oral Soln [Vancocin HCl*] 5 ml PO Q6HR #280 ml Amlodipine [Norvasc] 10 mg PO DAILY #30 tab Diet: Regular Activity: Ad delaney Followup: NONE,NONE [Primary Care Provider] - 1-2 Weeks (call to schedule appointment) Andrew Galo [ACTIVE - CAN ADMIT] - 1-2 Weeks (Follow up for renal cysts, call to schedule appointment) Time spent managing pt's care (in minutes): 33
== END 2021-04-05 14:00 | disposition home or self-care (01) | DRG 683 ==
LOC: ER 20:43 → ERHOLD 23:30 → 4TH 04-03 01:53
PROVIDERS: ADMIT Hospitalist; ATTEND Internal Medicine
DX: N17.9 Acute kidney failure, unspecified (principal); M62.82 Rhabdomyolysis; A04.72 Enterocolitis due to Clostridium difficile, not specified as recurrent; E11.9 Type 2 diabetes mellitus without complications; F17.210 Nicotine dependence, cigarettes, uncomplicated; D72.829 Elevated white blood cell count, unspecified; E86.0 Dehydration; E87.6 Hypokalemia; E83.52 Hypercalcemia; I10 Essential (primary) hypertension; N28.1 Cyst of kidney, acquired; R00.0 Tachycardia, unspecified; E66.9 Obesity, unspecified; Z90.49 Acquired absence of other specified parts of digestive tract; Z79.899 Other long term (current) drug therapy; Z60.2 Problems related to living alone; Z68.38 Body mass index [BMI] 38.0-38.9, adult; Z20.822 Contact with and (suspected) exposure to COVID-19
CPT/HCPCS: 36415; 74176; 76770; 80053; 80061; 80069; 81003; 81015; 82274; 82550; 82570; 82947; 83036; 83735; 83970; 84145; 84156; 84439; 84443; 84550; 85025; 85652; 87040; 87045; 87046; 87177; 87209; 87324; 87449; 87493; 89055; 93970; 96360; 96361; 99285; J0696; J1644; J3475; J7030; U0003